=== PATIENT | female | born 1950 | race Caucasian/White ===

== ENCOUNTER 2023-12-13 21:54 | Inpatient (IN) | payer MEDICARE, BC, SELFPAY ==
--- NOTE | ~2023-12-13 | CT_ITS ---
EXAMINATION: CT SOFT TISSUE NECK WITH CONTRAST CLINICAL INFORMATION: Purulent nasal discharge. Status post jaw bone graft. COMPARISON: None available. TECHNIQUE: Following the intravenous administration of 60 mL of Omnipaque 350 intravenous contrast, helical imaging was performed in the axial plane with generation of coronal and sagittal reformatted images. This CT examination was performed using dose optimization techniques as appropriate, variously including the following: *Automated exposure control *Adjustment of mA and/or kV according to patient size (this includes techniques or standardized protocols for targeted exams where dose is matched to indication/reason for exam; i.e. extremities or head) *Use of iterative reconstruction technique DLP: 447 mGy-cm FINDINGS: The uvula and adenoids are prominent narrowing the nasopharyngeal airway. The oropharynx and hypopharynx are unremarkable. The epiglottis is unremarkable. The retropharyngeal soft tissues are unremarkable. The parotid glands, submandibular glands are unremarkable. There are subcentimeter bilateral thyroid hypodensities. There are prominent nonspecific lymph nodes throughout the neck measuring up to 2.3 cm. There is significant left maxillary sinus opacity. There is a small left ethmoid sinus opacity. The remaining maxillofacial sinuses are essentially clear. The mastoids are clear. The visualized upper lung beckman are clear. The visualized intracranial structures are unremarkable. The orbital structures are within normal limits. CT/CT soft tissue neck w IV con IMPRESSION: 1. Prominent uvula and adenoids narrowing the nasopharyngeal airway. 2. Prominent nonspecific lymph nodes throughout the neck measuring up to 2.3 cm. 3. Left maxillary and ethmoid sinus disease.
--- NOTE | ~2023-12-13 | XR_ITS ---
EXAMINATION: XR CHEST CLINICAL INFORMATION: High fever. COMPARISON: None available. TECHNIQUE: Frontal view of the chest was obtained. FINDINGS: No significant abnormality is noted involving the heart, lungs, mediastinum, bony thorax or soft tissues. XR/XR chest 1V IMPRESSION: Unremarkable examination.
[2023-12-13 22:06] VITALS: BP 142/64; PULSE 96; RESP 20; TEMP 38.4; O2SAT 97; BMI 28.3
[2023-12-13] MEDS: Ibuprofen 600 MG TABLET PO (22:19)
--- NOTE | 2023-12-13 22:31 | MHC.EDTECH ---
Patient brought into triage area,labs,sars/flu/rsv obtained and sent to lab.
[2023-12-13 22:35] LABS: Basophils Percent Auto 0.3 % (0-2); Eosinophils Absolute Auto 0.1 X10*3/uL (0.0-0.4); Eosinophils Percent Auto 1.4 % (0-4); Hematocrit 33.3 % (37.0-47.0); Hemoglobin 11.3 g/dl (12.0-16.0); Imm Gran Abs Auto 0.03 X10*3/uL (0.00-0.03); Imm Gran Pct Auto 0.5 % (0.0-0.4); Lymphocytes Absolute Auto 0.3 X10*3/uL (1.2-4.9); Lymphocytes Percent Auto 5.6 % (20-40); MANUAL DIFF FLAG NO; Mean Corpuscular HGB Conc 33.9 g/dl (31.0-35.0); Mean Corpuscular Hemoglobin 30.5 pg (27.0-33.0); Mean Corpuscular Volume 89.8 fL (80.0-98.0); Mean Platelet Volume 9.8 fL (9.4-12.3); Monocytes Absolute Auto 0.5 X10*3/uL (0.1-1.2); Monocytes Percent Auto 8.2 % (2-11); Neutrophils Absolute Auto 4.8 x10*3/uL (2.0-8.3); Platelet Count 194 X10*3/uL (160-400); Red Blood Count 3.71 X10*6/uL (4.20-5.50); Red Cell Distribution Width 11.8 % (11.0-16.0); White Blood Count 5.8 X10*3/uL (4.8-10.8)
[2023-12-13 22:50] LABS: Alanine Aminotransferase 12 U/L (0-31); Albumin Level 3.8 g/dL (3.5-5.0); Alkaline Phosphatase 87 U/L (39-117); Anion Gap 12 (12-20); Aspartate Amino Transferase 13 U/L (5-31); Bilirubin Total 0.4 mg/dL (0.0-1.0); Blood Urea Nitrogen 11 mg/dL (9-16); Calcium 8.7 mg/dL (8.4-10.2); Carbon Dioxide 22 mmol/L (22-29); Chloride 101 mmol/L (96-108); Creatinine Clr Calc Pharmacy 59.4; Estimated Glomerular Filt Rate > 60; Glucose Random 158 mg/dL (60-115); Potassium 4.1 mmol/L (3.3-5.1); Sodium 131 mmol/L (135-145); Total Protein 6.9 g/dL (6.5-8.0)
[2023-12-13 23:12] LABS: Influenza A PCR NEGATIVE (Negative); Influenza B PCR NEGATIVE (Negative); Resp Syncy Virus RNA Qual PCR NEGATIVE (Negative); SARS COV2 PCR INHOUSE NEGATIVE (Negative)
[2023-12-14] VITALS (7 sets, daily range): BP systolic 93–130; BP diastolic 40–64; PULSE 70–81; RESP 16–18; TEMP 36.3–36.9; O2SAT 93–98; BMI 28.3; BMI 36.8
--- NOTE | 2023-12-14 00:59 | MHC.EDTECH ---
Patient brought into triage,1st set of blood cultures and lactic drawn and sent to lab. Urine sample collected and sent to lab.
[2023-12-14 01:07] LABS: Appearance Urine Cloudy; Color Urine Dark Yellow; Glucose Urine UA Negative (Negative); Leukocyte Esterase Urine Small (1+) (Negative); Nitrite Urine Negative (Negative); Specific Gravity - Urine >= 1.030 (1.005-1.025); UMIC TRIGGER UACC YES; Urine Blood Negative (Negative); Urine Ketones Trace mg/dL (Negative); Urine Protein 30 (1+) mg/dL (Neg-Trace)
[2023-12-14 01:16] LABS: Bacteria Urine None Seen (None Seen); Hyaline Casts Urine >20 /LPF (0-2); RBC Urine 0-2 /HPF (0-2); UACC Culture Trigger YES; WBC Urine >50 /HPF (0-5)
[2023-12-14 01:27] LABS: Lactic Acid 1.2 mmol/L (0.5-2.0)
[2023-12-14] MEDS: iohexoL 350 MG/ML 100 ML INFUS..BTL 60 ML IV (02:25)
[2023-12-14] MEDS: Ketorolac Tromethamine 30 MG/ML VIAL IVPUSH (02:36)
[2023-12-14] MEDS: levoFLOXacin/D5W 500 MG/100 ML PIGGYBACK 100 MG IV (02:36)
[2023-12-14] MEDS: 0.9 % Sodium Chloride 1,000 ML 999 ML IVCONT (02:37)
--- NOTE | 2023-12-14 02:55 | ED.GENADULT ---
HPI - General Adult General Chief complaint: Fever Stated complaint: sob, nausea, fever, vomiting Time Seen by Provider: 12/14/23 01:44 Source: patient and family Mode of arrival: ambulatory Limitations: no limitations History of Present Illness HPI narrative: Patient comes to the emergency room accompanied by her son. Approximately 3 weeks ago, patient had for molar extractions in bilateral upper and lower parts of the jaw. Also, for bone grafts were placed. Since then, patient has been spiking intermittent fevers. Patient was treated with sulfamethoxazole, finished treatment but patient is still spiking fever. Patient states that she has sinus pressure in her forehead and in the facial cheeks, patient states when she blows her nose, she expresses foul-smelling mucus. Patient also reporting nausea and vomiting and posterior headache. Patient denies neck pain or neck stiffness. Patient denies chest pain or shortness of breath, no UTI symptoms. Related Data Allergies Allergy/AdvReac Type Severity Reaction Status Date / Time morphine [MORPHINE] Allergy Unknown UNKNOWN Verified 12/13/23 22:14 Penicillins [PENICILLINS] Allergy Unknown UNKNOWN Verified 12/13/23 22:14 Review of Systems Review of Systems: Constitutional : No Weight loss, complaining of fever and chills No Night Sweats, No Fatigue, No Malaise ENT/Mouth : No Hearing loss, No Ear Pain, complaining of nasal congestion and sinus pain with foul discharge pronounced. No Hoarseness, No sore throat, No Rhinorrhea, No Swallowing Difficulty , recovering from bone graft in the jaw mandible bilaterally Eyes: No Eye Pain, No Swelling, No Redness, No Foreign Body, No Discharge, No Vision Changes Cardiovascular : No Chest Pain, No SOB, No Dyspnea on Exertion, No Orthopnea, No Edema, No Palpitations Respiratory : No Cough, No Sputum, No Wheezing, No Smoke Exposure, No Dyspnea Gastrointestinal : No Nausea, No Vomiting, No Diarrhea, No Constipation, No abdominal Pain, No Hematochezia, No Melena Genitourinary : no irregular bleeding, No Dysuria, No Urinary Frequency, No Hematuria, No Urinary Incontinence, No Urgency, No Flank Pain, No Urinary Flow Changes, No Hesitancy Musculoskeletal : No joint pain, No Myalgias, No Joint Swelling Skin : No Skin Lesions, No rash Neuro : No Weakness, No Numbness, No Paresthesias, No Loss of Consciousness, No Dizziness, complaining of posterior Headache without rigidity Psych : No Anxiety/Panic, No Depression, No SI/HI/AH/VH, No Social Issues, Heme/Lymph: No Bruising, No Bleeding,No Lymphadenopathy Endocrine : No Polyuria, No Polydipsia, No Temperature Intolerance [facility] Social History Social History Patient Tobacco Use Status: Never used Tobacco Advance Directives: No Advance Directives Information Provided: Yes Nutrition Risks: No Nutritional Risk Physical Exam ED Vital Signs: Vital Signs - 24 hr 12/13/23 22:06 12/14/23 00:54 12/14/23 03:55 Temperature 101.2 F H 98.5 F 97.8 F Pulse Rate 96 71 Respiratory Rate 20 16 Blood Pressure 142/64 H 104/47 L Pulse Oximetry 97 98 Oxygen Delivery Method Room Air Room Air BMI result Body Mass Index 28.3 Const Other: Appearance: Alert. Oriented X3. No acute distress. Well-appearing Eyes: Pupils equal, round and reactive to light. ENT: Pharynx normal. Bone graft seem to be healing well, no obvious abscesses or drainage Neck: Normal inspection. Neck supple. No lymph nodes noted. No crepitus, normal range of motion without rigidity CVS: Normal heart rate and rhythm. Pulses normal. Normal S1 and S2 Respiratory: No respiratory distress. Breath sounds normal. No Wheezing. No rales Abdomen: Soft and nontender. No rigidity. No distention. Skin: Skin warm and dry. Normal skin color. Normal skin turgor. Extremities: No lower extremity edema. No Lacerations. No Rash Neuro: Oriented X 3. No motor deficit. No sensory deficit. Moving all extremities. No slurred speech. CN 2 through 12 grossly intact Psych: calm, cooperative, normal affect Medications Administered Generic Name Dose Route Start Last Admin Trade Name Freq PRN Reason Stop Dose Admin Lactated Ringer's 1,000 mls @ 125 mls/hr 12/14/23 06:15 12/14/23 06:08 Lr IVCONT 12/14/23 18:14 125 mls/hr .Q8H PIETRO Administration Discontinued Medications Generic Name Dose Route Start Last Admin Trade Name Freq PRN Reason Stop Dose Admin Dexamethasone Sodium Phosphate 6 mg 12/14/23 05:28 12/14/23 05:56 Dexamethasone Sod Phosphate 4 Mg/Ml Vial IVPUSH 12/14/23 05:29 6 mg ONCE ONE Administration Diphenhydramine HCl 25 mg 12/14/23 05:32 12/14/23 05:59 Diphenhydramine Hcl 50 Mg/Ml Vial IVPUSH 12/14/23 05:33 25 mg ONCE ONE Administration Sodium Chloride 1,000 mls @ 999 mls/hr 12/14/23 01:57 12/14/23 03:38 Ns IVCONT 12/14/23 02:57 Infused .Q1H1M ONE Infusion Levofloxacin 500 mg in 100 mls @ 100 mls/hr 12/14/23 02:06 12/14/23 03:38 Levaquin IV 12/14/23 03:05 Infused ONCE ONE Infusion Ibuprofen 600 mg 12/13/23 22:17 12/13/23 22:19 Ibuprofen 600 Mg Tablet PO 12/13/23 22:18 600 mg ONCE ONE Administration Iohexol 60 ml 12/14/23 02:24 12/14/23 02:25 Iohexol 350 Mg/Ml 100 Ml Infus..Btl IV 12/14/23 02:25 60 ml ONCE ONE Administration Ketorolac Tromethamine 30 mg 12/14/23 01:57 12/14/23 02:36 Ketorolac Tromethamine 30 Mg/Ml Vial IVPUSH 12/14/23 01:58 30 mg ONCE ONE Administration Morphine Sulfate 2 mg 12/14/23 05:32 12/14/23 06:00 Morphine Sulfate 2 Mg/Ml Cartridge IVPUSH 12/14/23 05:33 2 mg ONCE ONE Administration Protocol Medical Decision Making Medical Decision Making MDM Narrative: -my interpretation of labs: Normal white blood cell count, sodium slightly decreased at 131, lactic acid normal, LFTs normal. Urine positive for UTI but patient is asymptomatic. Patient tested negative for influenza COVID and RSV. -earlier today patient had a fever, patient was given ibuprofen, no longer febrile. -patient is being treated empirically with levofloxacin, to cover both, sinus infection and UTI. -given patient's history of foul discharg, sinus pain and recent history of mandible/maximally grafts, we will order a CT scan of the soft tissue of the neck which will cover sinuses to neck to rule out any abscesses -my interpretation of chest x-ray: No infiltrate -soft tissue of the head and neck including sinuses, interpretation, opacification of the left maxillary sinus. Airways patent from the mouth all the way down to the lungs. Airway compromise not suspected. -I discussed the above-mentioned with the patient and her son, the patient states that she feels weak -also, I discussed the above-mentioned with our hospitalist Dr. Gordon, patient being admitted for sinusitis that failed outpatient treatment and UTI, weakness Differential Diagnosis Differential Diagnoses: The differential diagnosis associated with the presentation includes (Sinusitis, mandible/maxillary abscess/infection, UTI, viral illness) Admission/Observation Consideration of admission/observation: Escalation of care including admission/observation considered (Given patient's symptoms and history of p.o. antibiotics without any clinical improvement, admission has been considered) Consult Healthcare Provider Management of the patient was discussed with: Hospitalist Lab Data MDM Lab Attestation statement: I reviewed the patient's lab results. 12/13/23 22:27 12/13/23 22:27 Labs: Lab Results 12/13/23 12/14/23 Range/Units 22:27 00:57 WBC 5.8 (4.8-10.8) X10*3/uL RBC 3.71 L (4.20-5.50) X10*6/uL Hgb 11.3 L (12.0-16.0) g/dl Hct 33.3 L (37.0-47.0) % MCV 89.8 (80.0-98.0) fL MCH 30.5 (27.0-33.0) pg MCHC 33.9 (31.0-35.0) g/dl RDW 11.8 (11.0-16.0) % Plt Count 194 (160-400) X10*3/uL MPV 9.8 (9.4-12.3) fL Immature Gran % (Auto) 0.5 H (0.0-0.4) % Neut % (Auto) 84.0 H (45-73) % Lymph % (Auto) 5.6 L (20-40) % [place] % (Auto) 8.2 (2-11) % Eos % (Auto) 1.4 (0-4) % Baso % (Auto) 0.3 (0-2) % Lymph # (Auto) 0.3 L (1.2-4.9) X10*3/uL [place] # (Auto) 0.5 (0.1-1.2) X10*3/uL Eos # (Auto) 0.1 (0.0-0.4) X10*3/uL Baso # (Auto) 0.0 (0.0-0.2) X10*3/uL Abs Immat Gran (auto) 0.03 (0.00-0.03) X10*3/uL Absolute Neuts (auto) 4.8 (2.0-8.3) x10*3/uL Absolute Nucleated RBC 0.000 (0.0-0.012) X10*3/uL Nucleated RBC % (auto) 0.0 (0.0-0.2) /100WBC Sodium 131 L (135-145) mmol/L Potassium 4.1 (3.3-5.1) mmol/L Chloride 101 (96-108) mmol/L Carbon Dioxide 22 (22-29) mmol/L Anion Gap 12 (12-20) BUN 11 (9-16) mg/dL Creatinine 0.86 (0.5-1.4) mg/dL Estim Creat Clear Calc 59.4 Estimated GFR > 60 Random Glucose 158 H (60-115) mg/dL Lactic Acid 1.2 (0.5-2.0) mmol/L Calcium 8.7 (8.4-10.2) mg/dL Total Bilirubin 0.4 (0.0-1.0) mg/dL AST 13 (5-31) U/L ALT 12 (0-31) U/L Alkaline Phosphatase 87 (39-117) U/L C-Reactive Protein 10.49 H (< or = 0.50) mg/dL Total Protein 6.9 (6.5-8.0) g/dL Albumin 3.8 (3.5-5.0) g/dL Urine Color Dark Yellow Urine Appearance Cloudy Urine pH 5.0 (5.0-9.0) Ur Specific [place] >= 1.030 H (1.005-1.025) Urine Protein 30 (1+) H (Neg-Trace) mg/dL Urine Glucose (UA) Negative (Negative) mg/dL Urine Ketones Trace (Negative) mg/dL Urine Blood Negative (Negative) Urine Nitrite Negative (Negative) Ur Leukocyte Esterase Small (1+) H (Negative) Urine RBC 0-2 (0-2) /HPF Urine WBC >50 H (0-5) /HPF Ur Squamous Epith Cells 3-5 (0-2) /HPF Urine Bacteria None Seen (None Seen) Hyaline Casts >20 (0-2) /LPF Influenza Type A (PCR) NEGATIVE (Negative) Influenza Type B (PCR) NEGATIVE (Negative) RSV RNA Qual (PCR) NEGATIVE (Negative) SARS-CoV-2 RNA (RT-PCR) NEGATIVE (Negative) Independent Interpretation I performed an independent interpretation of an: Plain X-Ray and CT Scan Radiology Impression Discussion of test interpretation with radiology: I have reviewed the radiologist's reading. Radiologist Impression: FINDINGS: No significant abnormality is noted involving the heart, lungs, mediastinum, bony thorax or soft tissues. XR/XR chest 1V IMPRESSION: Unremarkable examination The uvula and adenoids are prominent narrowing the nasopharyngeal airway. The oropharynx and hypopharynx are unremarkable. The epiglottis is unremarkable. The retropharyngeal soft tissues are unremarkable. The parotid glands, submandibular glands are unremarkable. There are subcentimeter bilateral thyroid hypodensities. There are prominent nonspecific lymph nodes throughout the neck measuring up to 2.3 cm. There is significant left maxillary sinus opacity. There is a small left ethmoid sinus opacity. The remaining maxillofacial sinuses are essentially clear. The mastoids are clear. The visualized upper lung beckman are clear. The visualized intracranial structures are unremarkable. The orbital structures are within normal limits. CT/CT soft tissue neck w IV con IMPRESSION: 1. Prominent uvula and adenoids narrowing the nasopharyngeal airway. 2. Prominent nonspecific lymph nodes throughout the neck measuring up to 2.3 cm. 3. Left maxillary and ethmoid sinus disease. Independent Historian Clinical information obtained from an independent historian. History obtained from or confirmed by: Other (Son) Critical Care Time Critical Care Time Critical Care Time: Yes Total Critical Care Time: 75 Attestation: I have personally provided critical care time. Time includes review of lab data, radiology results, discussion with consultants, and monitoring for potential decompensation. Intervention performed as documented. Discharge Plan Discharge Print Language: Turkmen
[2023-12-14] MEDS: dexAMETHasone sod phosphate 4 MG/ML VIAL 6 MG IVPUSH (05:56)
[2023-12-14] MEDS: diphenhydrAMINE HCL 50 MG/ML VIAL 25 MG IVPUSH (05:59)
[2023-12-14] MEDS: Morphine Sulfate 2 MG/ML CARTRIDGE IVPUSH (06:00)
--- NOTE | 2023-12-14 06:04 | PM.IMHP ---
History of Present Illness Date of Service: 12/14/23 Attending physician on admission: Saeed Santos Chief Complaint: Fever Geronimo Hall is a delightful 73 years old woman with no significant past medical history presents to the emergency department accompanied by her son complaining of fever (max 103) over the last several days associated with frontal headache that radiates to the posterior aspect of her neck, nausea and vomiting. She also complained of tenderness in the left upper cheek area. There is no acute visual disturbances Denied sore throat, cough, shortness on breath or chest pain. She denied any acute gastrointestinal or genitourinary symptoms. On November 21 of this year she underwent multiple dental extraction (5 teeth, both side, upper and lower) in addition to bone grafts. He was prescribed to take a course of sulfamethoxazole for 7 days (she has completed 5 days so far). Also, she has been taking Zofran as needed. Patient denied any associated visual disturbances. Son was at bedside and contributes to HPI. Confusion has not been reported. There is no history of tobacco smoking, alcohol abuse or illicit drug use. In the ED she was found to have fever, 101.2. Heart rate is 96. There is no hypotension and O2 sats on room air are normal. Blood workup showed no leukocytosis with neutrophilia. There is no lactic acidosis. Sodium level is slightly low. There are no other significant electrolyte imbalances. LFTs are normal. Renal function is adequate. Urinalysis showed elevated SG, mild proteinuria, mild leukocyte esterase, WBC > 50 and trace ketones. Neck soft tissue CT scan showed prominent uvula and adenoids narrowing the nasopharyngeal area no evidence of mastoiditis, prominent nonspecific lymph nodes through the neck measuring up to 2.3 cm and left maxillary and ethmoid sinus disease. ED tx: NS 1 L bolus, Toradol 30 mg IV, Levaquin 500 mg IV, dexamethasone 6 mg IV, morphine 2 mg IV, Benadryl 25 mg IV and ibuprofen 600 mg PO. Review of Systems Review of Systems: All 12 systems were reviewed and normal except as noted in HPI. [facility] Medical History (Updated 12/14/23 @ 06:58 by Saeed Santos MD) Depression Surgical History (Updated 12/14/23 @ 06:54 by Saeed Santos MD) History of dental surgery Social History Patient Tobacco Use Status: Never used Tobacco Advance Directives: No Advance Directives Information Provided: Yes Nutrition Risks: No Nutritional Risk Meds Allergies Allergy/AdvReac Type Severity Reaction Status Date / Time morphine [MORPHINE] Allergy Unknown UNKNOWN Verified 12/13/23 22:14 Penicillins [PENICILLINS] Allergy Unknown UNKNOWN Verified 12/13/23 22:14 Active Medications: Current Medications Acetaminophen (Acetaminophen 325 Mg Tablet) 975 mg PO Q6H PRN PRN Reason: Fever Levofloxacin (Levaquin) 750 mg in 150 mls @ 100 mls/hr IV Q24H [facility] Lactated Ringer's (Lr) 1,000 mls @ 125 mls/hr IVCONT .Q8H [facility] Stop: 12/14/23 18:14 Ibuprofen (Ibuprofen 200 Mg Tablet) 200 mg PO TID [facility] Stop: 12/19/23 08:59 Sodium Chloride (0.9 % Sodium Chloride Flush 3 Ml Syringe) 3 ml IVFLUSH QSHIFT [facility] Physical Exam Vital Signs and Narrative: Vital Signs: Last Vital Signs Temp 97.8 F 12/14/23 03:55 Pulse 71 12/14/23 03:55 Resp 16 12/14/23 03:55 BP 104/47 L 12/14/23 03:55 Pulse Ox 98 12/14/23 03:55 O2 Del Method Room Air 12/14/23 03:55 BMI result Body Mass Index 28.3 Constitutional - Awake and Alert, No apparent distress. Febrile. Pleasant. Cooperative HEENT - Pupils equally round. Left maxillar sign tenderness. No frontal sinus tenderness. Moist oral mucosa. Minimal swelling of the oropharynx without erythema. Neck: Supple, (+) LAD. Heart - S1S2, RRR. Lungs - Normal lung expansion, Normal respiratory effort, No respiratory distress, CTA bilaterally Abdomen - Non tenderness Skin - Warm. No pallor. No jaundice. Neurological - Alert & oriented x3. No facial droop. No focal weakness grossly noted. Normal speech. Psychological - Appropriate affect Results Labs 12/13/23 22:27 12/13/23 22:27 Labs: Laboratory Results - last 24 hr 12/13/23 12/14/23 22:27 00:57 MCV 89.8 MCH 30.5 MCHC 33.9 RDW 11.8 Plt Count 194 MPV 9.8 Immature Gran % (Auto) 0.5 H Neut % (Auto) 84.0 H Lymph % (Auto) 5.6 L [place] % (Auto) 8.2 Eos % (Auto) 1.4 Baso % (Auto) 0.3 Lymph # (Auto) 0.3 L [place] # (Auto) 0.5 Eos # (Auto) 0.1 Baso # (Auto) 0.0 Abs Immat Gran (auto) 0.03 Absolute Neuts (auto) 4.8 Absolute Nucleated RBC 0.000 Nucleated RBC % (auto) 0.0 Anion Gap 12 Estim Creat Clear Calc 59.4 Estimated GFR > 60 Random Glucose 158 H Lactic Acid 1.2 Calcium 8.7 Total Bilirubin 0.4 AST 13 ALT 12 Alkaline Phosphatase 87 Total Protein 6.9 Albumin 3.8 Urine Color Dark Yellow Urine Appearance Cloudy Urine pH 5.0 Ur Specific [place] >= 1.030 H Urine Protein 30 (1+) H Urine Glucose (UA) Negative Urine Ketones Trace Urine Blood Negative Urine Nitrite Negative Ur Leukocyte Esterase Small (1+) H Urine RBC 0-2 Urine WBC >50 H Ur Squamous Epith Cells 3-5 Urine Bacteria None Seen Hyaline Casts >20 Influenza Type A (PCR) NEGATIVE Influenza Type B (PCR) NEGATIVE RSV RNA Qual (PCR) NEGATIVE SARS-CoV-2 RNA (RT-PCR) NEGATIVE Imaging Radiologist's Impressions: Impressions Chest X-Ray 12/14/23 02:00 IMPRESSION: Unremarkable examination. Soft Tissue Neck CT 12/14/23 02:33 IMPRESSION: 1. Prominent uvula and adenoids narrowing the nasopharyngeal airway. 2. Prominent nonspecific lymph nodes throughout the neck measuring up to 2.3 cm. 3. Left maxillary and ethmoid sinus disease. Assessment and Plan (1) History of dental surgery: Status: Acute (2) Maxillary sinusitis, acute: Qualifiers: Recurrence: not specified as recurrent Qualified Code(s): J01.00 - Acute maxillary sinusitis, unspecified Status: Acute (3) Ethmoid sinusitis: Qualifiers: Chronicity: acute Recurrence: not specified as recurrent Qualified Code(s): J01.20 - Acute ethmoidal sinusitis, unspecified Status: Acute (4) SIRS (systemic inflammatory response syndrome): Status: Acute Plan Geronimo Hall is a delightful 73 years old woman admitted with: Bacterial/purulent left maxillary and ethmoid sinusitis s/p recent dental extraction + bone graft. Failed course of oral antibiotic therapy as an outpatient. Severe sepsis criteria: Fever, HR > 90 bpm and MAP 58. Continue empiric IV antibiotic therapy with Levaquin 750 mg IV daily. IVFs 30 ml/kg. Ibuprofen 200 mg PO tid to help with pain and inflammation. Blood cultures obtained -will follow results. Presumed UTI, asymptomatic. Continue Levaquin. Urine culture obtained -will follow results. Hx of depression. Takes Zoloft as needed. DVT prophylaxis: SCDs, encourage early ambulation Code status: Full Patient will need hospitalization for at least 2 midnights for bacterial sinusitis of the left maxillary and ethmoid sinus + SIRS Quality Stroke Does the patient have a stroke diagnosis?: No VTE Prior VTE?: No VTE Risk Level:: Medical - low VTE Device Contraindication: N/A - Device Ordered VTE Drug Contraindication: Treatment Not Indicated
[2023-12-14] MEDS: Lactated Ringers 1,000 ML 125 ML IVCONT ×2 (06:08→15:24)
[2023-12-14 06:25] LABS: C Reactive Protein 10.49 mg/dL (< or = 0.50)
[2023-12-14 07:21] LABS: Lactic Acid 1.4 mmol/L (0.5-2.0)
[2023-12-14] MEDS: Lactated Ringers 1,000 ML 999 ML IV (08:21)
[2023-12-14] MEDS: Ibuprofen 200 MG TABLET PO ×2 (09:31→15:24)
[2023-12-14] MEDS: metroNIDAZOLE 500 MG TABLET PO ×2 (09:31→17:48)
--- NOTE | 2023-12-14 09:31 | PHA.MEDREC ---
Pharmacy Consult ? Medication Reconciliation Pharmacy has completed the medication reconciliation.
--- NOTE | 2023-12-14 15:33 | PM.EVENT ---
Event Note Date of Service: 12/14/23 Event Note: seen and examined this morning follow up for sinusitis. overall seems to be feeling better. remains afebrile will add flagyl for now for better anaerobic coverge due to recent dental work with extractions and bone grafts ID consult pending doubt UTI as UA appears to be a poor sample with squamous epithelial cells but will follow results of urine culture blood cultures pending remainder as per admission H&P Time Spent With Patient Time: Total time managing care of this patient today ____ minutes.
[2023-12-15] MEDS: Zolpidem Tartrate 5 MG TABLET PO (00:33)
[2023-12-15] MEDS: metroNIDAZOLE 500 MG TABLET PO (00:33)
[2023-12-15] MEDS: levoFLOXacin/D5W 750 MG/150 ML PIGGYBACK 100 MG IV (02:30)
[2023-12-15 03:38] VITALS: BP 140/64; PULSE 70; RESP 18; TEMP 36.9; O2SAT 96
--- NOTE | 2023-12-15 05:30 | PC.NURSE ---
Patient reported at 0520 a rash to face, chest, back, thighs, feet, along with itching. No SOB or facial/throat swelling. She received Levaquin at 0230. ?allergy. notified via [employer].
[2023-12-15] MEDS: diphenhydrAMINE HCL 50 MG/ML VIAL IVPUSH ×3 (05:50→20:04)
[2023-12-15 07:18] LABS: Basophils Percent Auto 0.3 % (0-2); Eosinophils Percent Auto 0.9 % (0-4); Hematocrit 29.9 % (37.0-47.0); Hemoglobin 10.1 g/dl (12.0-16.0); Imm Gran Abs Auto 0.01 X10*3/uL (0.00-0.03); Imm Gran Pct Auto 0.3 % (0.0-0.4); Lymphocytes Absolute Auto 1.1 X10*3/uL (1.2-4.9); MANUAL DIFF FLAG SCAN; Mean Corpuscular HGB Conc 33.8 g/dl (31.0-35.0); Mean Corpuscular Hemoglobin 30.1 pg (27.0-33.0); Mean Corpuscular Volume 89.3 fL (80.0-98.0); Mean Platelet Volume 11.4 fL (9.4-12.3); Monocytes Absolute Auto 0.3 X10*3/uL (0.1-1.2); Monocytes Percent Auto 8.9 % (2-11); Neutrophils Absolute Auto 2.1 x10*3/uL (2.0-8.3); Neutrophils Percent Auto 59.3 % (45-73); Platelet Count 177 X10*3/uL (160-400); Red Blood Count 3.35 X10*6/uL (4.20-5.50); SCAN SMEAR FLAG 1; White Blood Count 3.5 X10*3/uL (4.8-10.8)
[2023-12-15 07:32] VITALS: BP 129/60; PULSE 69; RESP 14; TEMP 36.8; O2SAT 96
[2023-12-15 07:45] LABS: Lymphocytes Percent Auto 30.3 % (20-40); SLIDE REVIEW VERIFIED
[2023-12-15] MEDS: 0.9 % Sodium Chloride Flush 3 ML SYRINGE IVFLUSH ×3 (07:57→23:39)
[2023-12-15 11:01] LABS: Anion Gap 12 (12-20); Blood Urea Nitrogen 11 mg/dL (9-16); Calcium 8.7 mg/dL (8.4-10.2); Carbon Dioxide 25 mmol/L (22-29); Chloride 108 mmol/L (96-108); Estimated Glomerular Filt Rate > 60; Glucose Random 109 mg/dL (60-115); Potassium 4.5 mmol/L (3.3-5.1); Sodium 140 mmol/L (135-145)
--- NOTE | 2023-12-15 11:02 | P.PNIM_ITS ---
Subjective Subjective Date of Service: 12/15/23 Interval History: seen and examined this morning follow up for sinusitis, fever developed rash overnight, received benadryl other then rash, doing well. no fever, facial pressure improving Review of Systems Review of Systems: Yes all other systems are reviewed and are negative Constitutional Constitutional: Denies chills and Denies fever(s) Cardiovascular Cardiovascular: Denies chest pain, Denies palpitations and Denies dyspnea Respiratory Respiratory: Denies cough and Denies dyspnea Endocrine Endocrine: Denies palpitations Physical Exam 2 Vital Signs: Vital Signs: Last Vital Signs Temp 98.3 F 12/15/23 07:32 Pulse 69 12/15/23 07:32 Resp 14 12/15/23 07:32 BP 129/60 12/15/23 07:32 Pulse Ox 96 12/15/23 07:32 O2 Del Method Room Air 12/15/23 07:32 BMI result Body Mass Index 28.3 Const: General: cooperative, comfortable, no acute distress, alert and awake Nutritional Appearance: average body habitus Orientation/consciousness: p atient oriented x3 Resp: Effort & Inspection: normal respiratory effort, able to speak in complete sentences, no respiratory distress and no use of accessory muscles Cardio: Rate: regular rate GI: Inspection: No distended Palpation (GI): Soft to palpation and nontender Skin: Other: back abdomen Neuro: General: patient oriented x3, moves all extremities and CN's II-XI intact bilaterally Objective Data Active Medications Acetaminophen (Acetaminophen 325 Mg Tablet) 975 mg PO Q6H PRN PRN Reason: Fever Diphenhydramine HCl (Diphenhydramine Hcl 50 Mg/Ml Vial) 50 mg IVPUSH Q4H PRN PRN Reason: Rash Last Admin: 12/15/23 05:50 Dose: 50 mg Documented By: DORI Ibuprofen (Ibuprofen 200 Mg Tablet) 200 mg PO TID PRN PRN Reason: fever, mild pain Stop: 12/19/23 08:59 Sodium Chloride (0.9 % Sodium Chloride Flush 3 Ml Syringe) 3 ml IVFLUSH QSHIFT [facility] Last Admin: 12/15/23 07:57 Dose: 3 ml Documented By: DYANA Zinc Acetate/Diphenhydramine (Diphenhydramine Hcl 2 % Cream 28 Gm Tube) 1 appl TOPICAL BID PRN; Protocol PRN Reason: Itching Zolpidem Tartrate (Zolpidem Tartrate 5 Mg Tablet) 5 mg PO BEDTIME PRN PRN Reason: Insomnia Last Admin: 12/15/23 00:33 Dose: 5 mg Documented By: DORI Labs 12/15/23 06:00 12/15/23 06:00 Labs: Laboratory Results - last 24 hr 12/15/23 06:00 MCV 89.3 MCH 30.1 MCHC 33.8 RDW 12.0 Plt Count 177 MPV 11.4 Immature Gran % (Auto) 0.3 Neut % (Auto) 59.3 Lymph % (Auto) 30.3 Lares % (Auto) 8.9 Eos % (Auto) 0.9 Baso % (Auto) 0.3 Lymph # (Auto) 1.1 L Lares # (Auto) 0.3 Eos # (Auto) 0.0 Baso # (Auto) 0.0 Abs Immat Gran (auto) 0.01 Absolute Neuts (auto) 2.1 Absolute Nucleated RBC 0.000 Nucleated RBC % (auto) 0.0 Smear Tech's Comments VERIFIED Anion Gap 12 Estim Creat Clear Calc 71.0 Estimated GFR > 60 Random Glucose 109 Calcium 8.7 Microbiology Microbiology Results: Microbiology 12/14/23 02:12 Urine Culture - Final Urine clean catch - Urine mathew top No growth. 12/14/23 02:12 Blood Culture - Preliminary Blood - Venous No growth after 24 hours. 12/14/23 00:57 Blood Culture - Preliminary Blood - Venous No growth after 24 hours. Assessment and Plan (1) Ethmoid sinusitis: Status: Acute (2) Maxillary sinusitis, acute: Status: Acute Plan This is a 73 year old female with recent dental procedure including multiple tooth extractions and bone grafts for implants who presented to the emergency department with fever headache, facial pressure, purulent nasal discharge and several days of fever despite being treated outpatient with Bactrim Bacterial/purulent left maxillary and ethmoid sinusitis s/p recent dental extraction + bone graft. Failed course of oral Bactrim therapy as an outpatient. Met Severe sepsis criteria on admission due to fever, HR 96. Was treated with IVF and levaquin initially blood cultures negative seen by ID - thought many of her symptoms could be explained by Bactrim intolerance Levquin and Flagyl stopped per ID rec due to rash and overnight monitoring plan for discharge with zpack as patient has tolerated before Rash overnight 4/6 pt developed rash on face, trunk, feet c/w Bactrim intolerance. d/w ID, recommend to stop all abx for now UTI ruled out pt asymptomatic, urine culture negative Hx of depression. Takes Zoloft as needed. DVT prophylaxis: SCDs, encourage early ambulation Code status: Full Quality Stroke Does the patient have a stroke diagnosis?: No VTE Prior VTE?: No VTE Risk Level:: Medical - low VTE Device Contraindication: N/A - Device Ordered VTE Drug Contraindication: Treatment Not Indicated
--- NOTE | 2023-12-15 13:10 | MHC.CM.PN ---
pt lives with will not need servies when dcd has a ride
[2023-12-15] MEDS: diphenhydrAMINE HCl 2 % Cream 28 GM TUBE 1 APPL TOPICAL (13:56)
[2023-12-15 15:19] VITALS: BP 123/58; PULSE 75; RESP 16; TEMP 36.3; O2SAT 96
[2023-12-15 19:50] VITALS: BP 121/62; PULSE 71; RESP 20; TEMP 36.6; O2SAT 96
--- NOTE | 2023-12-15 20:01 | PC.NURSE ---
Patient with rash all over body,complaints of itchyness ,Benadryl IV administered as ordered
--- NOTE | 2023-12-15 21:58 | P.CNID_ITS ---
History of Present Illness Data of Consult Service Date: 12/14/23 Requesting physician: Magalie Rene Primary Care Provider: Jens Solano MD [facility] Reason for consult: fever unknown origin She presents with fever last two days. She had temperature 101.2 on admission. She had five teeth removed upper and lower jaw and bone grafts. She was started on Bactrim after concern for maxillary sinusitis after. She has nausea and vomiting and no signs UTI. Review of Systems 2 Gastrointestinal: Gastrointestinal: Reports vomiting PMFSH Past Medical History Medical History (Updated 12/15/23 @ 22:01 by Judith Allen MD) Fever of unknown origin Depression Family History Family history: reviewed and not pertinent Surgical History Surgical History History of dental surgery Social History Social History Household Members: Significant Other Housing: House Do you presently have visiting nurse or other home services: No Patient Tobacco Use Status: Never used Tobacco Second Hand Smoke Exposure: No service: No Meds Allergies Allergy/AdvReac Type Severity Reaction Status Date / Time sulfamethoxazole Allergy Intermediate Rash Verified 12/15/23 12:18 [From Bactrim] trimethoprim [From Bactrim] Allergy Intermediate Rash Verified 12/15/23 12:18 morphine [MORPHINE] Allergy Unknown UNKNOWN Verified 12/13/23 22:14 Penicillins [PENICILLINS] Allergy Unknown UNKNOWN Verified 12/13/23 22:14 Active Medications: Current Medications Acetaminophen (Acetaminophen 325 Mg Tablet) 975 mg PO Q6H PRN PRN Reason: Fever Diphenhydramine HCl (Diphenhydramine Hcl 50 Mg/Ml Vial) 50 mg IVPUSH Q4H PRN PRN Reason: Rash Last Admin: 12/15/23 20:04 Dose: 50 mg Ibuprofen (Ibuprofen 200 Mg Tablet) 200 mg PO TID PRN PRN Reason: fever, mild pain Stop: 12/19/23 08:59 Sertraline HCl (Sertraline Hcl 50 Mg Tablet) 150 mg PO DAILY [facility] Sodium Chloride (0.9 % Sodium Chloride Flush 3 Ml Syringe) 3 ml IVFLUSH QSHIFT [facility] Last Admin: 12/15/23 15:24 Dose: 3 ml Zinc Acetate/Diphenhydramine (Diphenhydramine Hcl 2 % Cream 28 Gm Tube) 1 appl TOPICAL BID PRN; Protocol PRN Reason: Itching Last Admin: 12/15/23 13:56 Dose: 1 appl Zolpidem Tartrate (Zolpidem Tartrate 5 Mg Tablet) 5 mg PO BEDTIME PRN PRN Reason: Insomnia Last Admin: 12/15/23 00:33 Dose: 5 mg Home Medications ?Medication ?Instructions ?Recorded ?Confirmed ?Last Taken ?Type estradiol 10 mcg vaginal tablet 10 mcg vaginal TUTH@0900 12/14/23 12/14/23 12/12/23 History (Yuvafem) lubiprostone 8 mcg capsule 8 mcg PO BID PRN Constipation 12/14/23 12/14/23 Unknown History ondansetron HCl 4 mg tablet 4 mg PO Q8H PRN Nausea And Vomiting 12/14/23 12/14/23 Unknown History sertraline 100 mg tablet 150 mg PO DAILY 12/14/23 12/14/23 12/13/23 History sulfamethoxazole 800 1 tab PO BID 12/14/23 12/14/23 12/13/23 History mg-trimethoprim 160 mg tablet Physical Exam 2 Vital Signs: Vital Signs: Last Vital Signs Temp 97.8 F 12/15/23 19:50 Pulse 71 12/15/23 19:50 Resp 20 12/15/23 19:50 BP 121/62 12/15/23 19:50 Pulse Ox 96 12/15/23 19:50 O2 Del Method Room Air 12/15/23 19:50 BMI result Body Mass Index 28.3 Const: General: cooperative HEENT: Other: dental beds from extraction clean and healing nicely Head: Yes normal to inspection Face and sinus: Yes normal facial exam Mouth: Normal oral and palatal mucosa present Teeth and gingiva: dentition normal Eyes: General: appearance normal, both eyes and all related structures P upils: Equal, round and reactive pupils present Resp: Effort & Inspection: normal respiratory effort Cardio: Rate: regular rate Rhythm: regular rhythm GI: Palpation (GI): Soft to palpation and nontender : General: Yes no CVA tenderness Back/Spine/Pelvis: Back: no CVA tenderness Skin: General skin exam: no rashes or lesions noted Neuro: General: moves all extremities Cranial nerves: Yes Equal, round and reactive pupils present Extrem: General: Yes normal to inspection Psych: Appearance: grossly normal Results Labs 12/15/23 06:00 12/15/23 06:00 Labs: Short CBC 12/15/23 Range/Units 06:00 WBC 3.5 L (4.8-10.8) X10*3/uL Hgb 10.1 L (12.0-16.0) g/dl Hct 29.9 L (37.0-47.0) % Plt Count 177 (160-400) X10*3/uL BMP 12/15/23 06:00 Sodium 140 Potassium 4.5 Chloride 108 Carbon Dioxide 25 BUN 11 Creatinine 0.72 Calcium 8.7 Microbiology Microbiology Results: Microbiology 12/14/23 02:12 Urine clean catch - Urine mathew top Urine Culture - Final No growth. 12/14/23 02:12 Blood - Venous Blood Culture - Preliminary No growth after 24 hours. 12/14/23 00:57 Blood - Venous Blood Culture - Preliminary No growth after 24 hours. Assessment and Plan (1) Fever of unknown origin: Status: Acute Plan I think most likely cause of symptoms Bactrim adverse reaction to sulfa and normal dental healing. She may have minor sinusitis as well. Stop Sulfa drug and label intolerance. Would agree with Levaquin for seven days
[2023-12-16 03:39] VITALS: BP 126/62; PULSE 68; RESP 16; TEMP 36.1; O2SAT 94
[2023-12-16 07:21] VITALS: BP 107/58; PULSE 66; RESP 12; TEMP 36.6; O2SAT 98
[2023-12-16] MEDS: 0.9 % Sodium Chloride Flush 3 ML SYRINGE IVFLUSH ×3 (08:24→22:05)
[2023-12-16] MEDS: Sertraline HCL 50 MG TABLET 150 MG PO (08:25)
--- NOTE | 2023-12-16 10:08 | HO.PM.IMPN ---
Subjective Subjective Date of Service: 12/16/23 Interval History: seen and examined this morning follow up for sinusitis, fever drug rash worse today other then rash, doing well. no fever, facial pressure improving Review of Systems Review of Systems: Yes all other systems are reviewed and are negative Constitutional Constitutional: Denies chills and Denies fever(s) Cardiovascular Cardiovascular: Denies chest pain, Denies palpitations and Denies dyspnea Respiratory Respiratory: Denies cough and Denies dyspnea Endocrine Endocrine: Denies palpitations Physical Exam Vital Signs: Vital Signs: Last Vital Signs Temp 98 F 12/16/23 07:21 Pulse 66 12/16/23 07:21 Resp 12 12/16/23 07:21 BP 107/58 L 12/16/23 07:21 Pulse Ox 98 12/16/23 07:21 O2 Del Method Room Air 12/16/23 07:21 BMI result Body Mass Index 28.3 Appearing in no acute distress lung sounds are clear to auscultation heart regular rate rhythm, clear S1, S2 positive bowel sounds, abdomen is soft, nontender neuro patient is alert x3, no focal deficits macular rash to back, trunk, arms, thighs, feet Objective Data Active Medications Acetaminophen (Acetaminophen 325 Mg Tablet) 975 mg PO Q6H PRN PRN Reason: Fever Diphenhydramine HCl (Diphenhydramine Hcl 50 Mg/Ml Vial) 50 mg IVPUSH Q4H PRN PRN Reason: Rash Last Admin: 12/15/23 20:04 Dose: 50 mg Documented By: KEY Ibuprofen (Ibuprofen 200 Mg Tablet) 200 mg PO TID PRN PRN Reason: fever, mild pain Stop: 12/19/23 08:59 Prednisone (Prednisone 20 Mg Tablet) 40 mg PO DAILY [facility] Sertraline HCl (Sertraline Hcl 50 Mg Tablet) 150 mg PO DAILY [facility] Last Admin: 12/16/23 08:25 Dose: 150 mg Documented By: NURIA Sodium Chloride (0.9 % Sodium Chloride Flush 3 Ml Syringe) 3 ml IVFLUSH QSHIFT [facility] Last Admin: 12/16/23 08:24 Dose: 3 ml Documented By: NURIA Zinc Acetate/Diphenhydramine (Diphenhydramine Hcl 2 % Cream 28 Gm Tube) 1 appl TOPICAL BID PRN; Protocol PRN Reason: Itching Last Admin: 12/15/23 13:56 Dose: 1 appl Documented By: YDANA Zolpidem Tartrate (Zolpidem Tartrate 5 Mg Tablet) 5 mg PO BEDTIME PRN PRN Reason: Insomnia Last Admin: 12/15/23 00:33 Dose: 5 mg Documented By: DORI Labs 12/15/23 06:00 12/15/23 06:00 Labs: Laboratory Results - last 24 hr 12/15/23 06:00 Anion Gap 12 Estim Creat Clear Calc 71.0 Estimated GFR > 60 Random Glucose 109 Calcium 8.7 Microbiology Microbiology Results: Microbiology 12/14/23 02:12 Blood Culture - Preliminary Blood - Venous No growth after 48 hours. 12/14/23 00:57 Blood Culture - Preliminary Blood - Venous No growth after 48 hours. 12/14/23 02:12 Urine Culture - Final Urine clean catch - Urine mathew top No growth. Assessment and Plan (1) Ethmoid sinusitis: Status: Acute (2) Maxillary sinusitis, acute: Status: Acute Plan This is a 73 year old female with recent dental procedure including multiple tooth extractions and bone grafts for implants who presented to the emergency department with fever headache, facial pressure, purulent nasal discharge and several days of fever despite being treated outpatient with Bactrim Rash, possible drug rash ? from batrim worse today, but no itchness, purulence, drainage developed 4/6 pt face, trunk, feet All abx stopped for now start Prednisone 40 mg daily Diarrhea check stool studies and cdiff Bacterial/purulent left maxillary and ethmoid sinusitis s/p recent dental extraction + bone graft. Failed course of oral Bactrim therapy as an outpatient. treated with IVF and levaquin initially blood cultures negative seen by ID - thought many of her symptoms could be explained by Bactrim intolerance Levquin and Flagyl stopped per ID rec due to rash and overnight monitoring plan for discharge with elly as patient has tolerated before Hx of depression. Takes Zoloft as needed. DVT prophylaxis: SCDs, encourage early ambulation Attending Dr. Monsivais Code status: Full Quality Stroke Does the patient have a stroke diagnosis?: No VTE Prior VTE?: No VTE Risk Level:: Medical - low VTE Device Contraindication: N/A - Device Ordered VTE Drug Contraindication: Treatment Not Indicated
[2023-12-16] MEDS: diphenhydrAMINE HCl 2 % Cream 28 GM TUBE 1 APPL TOPICAL ×2 (11:00→22:05)
[2023-12-16] MEDS: predniSONE 20 MG TABLET 40 MG PO (11:01)
--- NOTE | 2023-12-16 12:30 | MHC.CM.PN ---
PER MD ROUNDS PATIENT IS NOT MEDICALLY CLEARED FOR DC. CM WILL CONTINUE TO FOLLOW.
[2023-12-16 12:59] LABS: CDiff Gene PCR NEGATIVE (Negative)
[2023-12-16 13:46] LABS: Adenovirus F 40/41 Not Detected (Not Detect.); Astrovirus Not Detected (Not Detect.); Campylobacter Not Detected (Not Detect.); Cryptosporidium Not Detected (Not Detect.); Cyclospora cayetanensis Not Detected (Not Detect.); E. coli EAEC Not Detected (Not Detect.); E. coli EPEC Not Detected (Not Detect.); E. coli ETEC Not Detected (Not Detect.); E. coli STEC Not Detected (Not Detect.); Entamoeba histolytica Not Detected (Not Detect.); Giardia lamblia Not Detected (Not Detect.); Norovirus GI/GII Not Detected (Not Detect.); Plesiomonas shigelloides Not Detected (Not Detect.); Rotavirus A Not Detected (Not Detect.); Salmonella Not Detected (Not Detect.); Sapovirus Not Detected (Not Detect.); Shigella sp./EIEC Not Detected (Not Detect.); Vibrio Not Detected (Not Detect.); Vibrio Cholerae Not Detected (Not Detect.); Yersinia enterocolitica Not Detected (Not Detect.)
[2023-12-16 15:33] VITALS: BP 141/67; PULSE 72; RESP 20; TEMP 36; O2SAT 94
[2023-12-16] MEDS: Acetaminophen 325 MG TABLET 975 MG PO (17:17)
[2023-12-16 19:38] VITALS: BP 137/63; PULSE 72; RESP 18; TEMP 36.1; O2SAT 94
[2023-12-17] MEDS: Acetaminophen 325 MG TABLET 975 MG PO (00:23)
[2023-12-17] MEDS: Zolpidem Tartrate 5 MG TABLET PO ×2 (00:23→22:50)
[2023-12-17 02:43] VITALS: BP 149/70; PULSE 66; RESP 18; TEMP 36.3; O2SAT 95
[2023-12-17 07:45] VITALS: BP 128/70; PULSE 72; RESP 14; TEMP 36.8; O2SAT 94
[2023-12-17] MEDS: Sertraline HCL 50 MG TABLET 150 MG PO (08:38)
[2023-12-17] MEDS: predniSONE 20 MG TABLET 40 MG PO (08:38)
[2023-12-17] MEDS: 0.9 % Sodium Chloride Flush 3 ML SYRINGE IVFLUSH ×3 (08:38→21:37)
--- NOTE | 2023-12-17 09:38 | HO.PM.IMPN ---
Subjective Subjective Date of Service: 12/17/23 Interval History: seen and examined this morning follow up for sinusitis, fever drug rash better today other then rash, doing well. no fever, facial pressure improving Review of Systems Review of Systems: Yes all other systems are reviewed and are negative Constitutional Constitutional: Denies chills and Denies fever(s) Cardiovascular Cardiovascular: Denies chest pain, Denies palpitations and Denies dyspnea Respiratory Respiratory: Denies cough and Denies dyspnea Endocrine Endocrine: Denies palpitations Physical Exam Vital Signs: Vital Signs: Last Vital Signs Temp 98.3 F 12/17/23 07:45 Pulse 72 12/17/23 07:45 Resp 14 12/17/23 07:45 BP 128/70 12/17/23 07:45 Pulse Ox 94 12/17/23 07:45 O2 Del Method Room Air 12/17/23 07:45 BMI result Body Mass Index 28.3 Appearing in no acute distress lung sounds are clear to auscultation heart regular rate rhythm, clear S1, S2 positive bowel sounds, abdomen is soft, nontender neuro patient is alert x3, no focal deficits Objective Data Active Medications Acetaminophen (Acetaminophen 325 Mg Tablet) 975 mg PO Q6H PRN PRN Reason: Fever Last Admin: 12/17/23 00:23 Dose: 975 mg Documented By: MCKENZIE Diphenhydramine HCl (Diphenhydramine Hcl 50 Mg/Ml Vial) 50 mg IVPUSH Q4H PRN PRN Reason: Rash Last Admin: 12/15/23 20:04 Dose: 50 mg Documented By: KEY Ibuprofen (Ibuprofen 200 Mg Tablet) 200 mg PO TID PRN PRN Reason: fever, mild pain Stop: 12/19/23 08:59 Prednisone (Prednisone 20 Mg Tablet) 40 mg PO DAILY [facility] Last Admin: 12/17/23 08:38 Dose: 40 mg Documented By: NURIA Sertraline HCl (Sertraline Hcl 50 Mg Tablet) 150 mg PO DAILY [facility] Last Admin: 12/17/23 08:38 Dose: 150 mg Documented By: NURIA Sodium Chloride (0.9 % Sodium Chloride Flush 3 Ml Syringe) 3 ml IVFLUSH QSHIFT [facility] Last Admin: 12/17/23 08:38 Dose: 3 ml Documented By: NURIA Zinc Acetate/Diphenhydramine (Diphenhydramine Hcl 2 % Cream 28 Gm Tube) 1 appl TOPICAL BID PRN; Protocol PRN Reason: Itching Last Admin: 12/16/23 22:05 Dose: 1 appl Documented By: MCKENZIE Zolpidem Tartrate (Zolpidem Tartrate 5 Mg Tablet) 5 mg PO BEDTIME PRN PRN Reason: Insomnia Last Admin: 12/17/23 00:23 Dose: 5 mg Documented By: MCKENZIE Labs 12/15/23 06:00 12/15/23 06:00 Labs: Laboratory Results - last 24 hr 12/15/23 12/16/23 06:00 11:33 Smear Path Review SEE NOTE Stl C. cayetanensis PCR Not Detected Stool Rotavirus A PCR Not Detected Stl Adenov F 40/41 PCR Not Detected Stool Astrovirus (PCR) Not Detected Stool Campylobacter PCR Not Detected Stool Cryptosporidium PCR Not Detected Stl Sh Tox Pr E STEC PCR Not Detected Stool E coli O157 PCR Not applicable Stl Enterotoxigenic E PCR Not Detected Stool EPEC (PCR) Not Detected Stool EAEC (PCR) Not Detected Stl E. histolytica PCR Not Detected Stool Giardia Lamblia PCR Not Detected Stl P. shigelloides PCR Not Detected Stool Salmonella PCR Not Detected Stool Sapovirus (PCR) Not Detected Stl Shigella/EIEC PCR Not Detected St Y.enterocolitica PCR Not Detected Stool Vibrio (PCR) Not Detected Stl Vibrio cholerae PCR Not Detected Stl Norovirus GI/GII PCR Not Detected C. difficile Tox B Gene NEGATIVE Assessment and Plan (1) Ethmoid sinusitis: Status: Acute (2) Maxillary sinusitis, acute: Status: Acute Plan This is a 73 year old female with recent dental procedure including multiple tooth extractions and bone grafts for implants who presented to the emergency department with fever headache, facial pressure, purulent nasal discharge and several days of fever despite being treated outpatient with Bactrim Rash, possible drug rash ? from bactrim developed 4/6 pt face, trunk, feet, back better to feet area and rash seems to be coming together, no itchness, purulence or drainage All abx stopped continue Prednisone 40 mg daily Diarrhea stool studies and cdiff negative Bacterial/purulent left maxillary and ethmoid sinusitis s/p recent dental extraction + bone graft. Failed course of oral Bactrim therapy as an outpatient. treated with IVF and levaquin initially blood cultures negative seen by ID - thought many of her symptoms could be explained by Bactrim intolerance Levquin and Flagyl stopped per ID rec due to rash and overnight monitoring plan for discharge with elly as patient has tolerated before Hx of depression. Takes Zoloft as needed. DVT prophylaxis: SCDs, encourage early ambulation Attending Dr. Monsivais Code status: Full Quality Stroke Does the patient have a stroke diagnosis?: No VTE Prior VTE?: No VTE Risk Level:: Medical - low VTE Device Contraindication: N/A - Device Ordered VTE Drug Contraindication: Treatment Not Indicated
[2023-12-17] MEDS: diphenhydrAMINE HCl 2 % Cream 28 GM TUBE 1 APPL TOPICAL (15:35)
[2023-12-17 15:43] VITALS: BP 128/62; PULSE 72; RESP 16; TEMP 36.4; O2SAT 94
[2023-12-17 19:03] VITALS: BP 121/57; PULSE 88; RESP 18; TEMP 36.3; O2SAT 95
[2023-12-18 03:13] VITALS: BP 136/73; PULSE 68; RESP 18; TEMP 37.2; O2SAT 96
[2023-12-18 07:16] VITALS: BP 122/65; PULSE 81; RESP 16; TEMP 36.7; O2SAT 93
--- NOTE | 2023-12-18 07:29 | P.PNIM_ITS ---
Subjective Subjective Date of Service: 12/18/23 Interval History: seen and examined this morning follow up for sinusitis, fever drug rash better today other then rash, doing well. no fever, facial pressure improving Review of Systems Review of Systems: Yes all other systems are reviewed and are negative Constitutional Constitutional: Denies chills and Denies fever(s) Cardiovascular Cardiovascular: Denies chest pain, Denies palpitations and Denies dyspnea Respiratory Respiratory: Denies cough and Denies dyspnea Endocrine Endocrine: Denies palpitations Physical Exam 2 Vital Signs: Vital Signs: Last Vital Signs Temp 98.1 F 12/18/23 07:16 Pulse 81 12/18/23 07:16 Resp 16 12/18/23 07:16 BP 122/65 12/18/23 07:16 Pulse Ox 93 12/18/23 07:16 O2 Del Method Room Air 12/18/23 07:16 BMI result Body Mass Index 28.3 Appearing in no acute distress lung sounds are clear to auscultation heart regular rate rhythm, clear S1, S2 positive bowel sounds, abdomen is soft, nontender neuro patient is alert x3, no focal deficits Objective Data Active Medications Acetaminophen (Acetaminophen 325 Mg Tablet) 975 mg PO Q6H PRN PRN Reason: Fever Last Admin: 12/17/23 00:23 Dose: 975 mg Documented By: MCKENZIE Diphenhydramine HCl (Diphenhydramine Hcl 50 Mg/Ml Vial) 50 mg IVPUSH Q4H PRN PRN Reason: Rash Last Admin: 12/15/23 20:04 Dose: 50 mg Documented By: KEY Ibuprofen (Ibuprofen 200 Mg Tablet) 200 mg PO TID PRN PRN Reason: fever, mild pain Stop: 12/19/23 08:59 Prednisone (Prednisone 20 Mg Tablet) 40 mg PO DAILY [facility] Last Admin: 12/17/23 08:38 Dose: 40 mg Documented By: NURIA Sertraline HCl (Sertraline Hcl 50 Mg Tablet) 150 mg PO DAILY [facility] Last Admin: 12/17/23 08:38 Dose: 150 mg Documented By: NURIA Sodium Chloride (0.9 % Sodium Chloride Flush 3 Ml Syringe) 3 ml IVFLUSH QSHIFT [facility] Last Admin: 12/17/23 21:37 Dose: 3 ml Documented By: NILA Zinc Acetate/Diphenhydramine (Diphenhydramine Hcl 2 % Cream 28 Gm Tube) 1 appl TOPICAL BID PRN; Protocol PRN Reason: Itching Last Admin: 12/17/23 15:35 Dose: 1 appl Documented By: NURIA Zolpidem Tartrate (Zolpidem Tartrate 5 Mg Tablet) 5 mg PO BEDTIME PRN PRN Reason: Insomnia Last Admin: 12/17/23 22:50 Dose: 5 mg Documented By: NILA Labs 12/15/23 06:00 12/15/23 06:00 Assessment and Plan (1) Ethmoid sinusitis: Status: Acute (2) Maxillary sinusitis, acute: Status: Acute Plan This is a 73 year old female with recent dental procedure including multiple tooth extractions and bone grafts for implants who presented to the emergency department with fever headache, facial pressure, purulent nasal discharge and several days of fever despite being treated outpatient with Bactrim Rash, possible drug rash Likely from bactrim developed 4/6 face, trunk, feet, back better to feet area and rash seems to be coming together, no itchness, purulence or drainage All abx stopped continue Prednisone 40 mg daily, continue 7 days as outpatient Diarrhea. resolved stool studies and cdiff negative Bacterial/purulent left maxillary and ethmoid sinusitis s/p recent dental extraction + bone graft. Failed course of oral Bactrim therapy as an outpatient. treated with IVF and levaquin initially blood cultures negative seen by ID - thought many of her symptoms could be explained by Bactrim intolerance Levquin and Flagyl stopped per ID rec due to rash and overnight monitoring Hx of depression. Takes Zoloft as needed. DVT prophylaxis: SCDs, encourage early ambulation Attending Dr. Monsivais Code status: Full Quality Stroke Does the patient have a stroke diagnosis?: No VTE Prior VTE?: No VTE Risk Level:: Medical - low VTE Device Contraindication: N/A - Device Ordered VTE Drug Contraindication: Treatment Not Indicated
[2023-12-18] MEDS: Sertraline HCL 50 MG TABLET 150 MG PO (07:46)
[2023-12-18] MEDS: predniSONE 20 MG TABLET 40 MG PO (07:46)
[2023-12-18] MEDS: 0.9 % Sodium Chloride Flush 3 ML SYRINGE IVFLUSH ×2 (07:46→15:33)
[2023-12-18] MEDS: Acetaminophen 325 MG TABLET 975 MG PO (07:51)
[2023-12-18 08:51] VITALS: TEMP 36.3
--- NOTE | 2023-12-18 10:47 | MHC.CM.PN ---
EMR reviewed. Per MD rounds patient not medically cleared for dc at this time. No change to dc plan. CM will continue to follow.
--- NOTE | 2023-12-18 13:59 | PM.DS ---
DS: Providers Provider Date of admission: 12/14/23 05:53 Primary care physician: Jens Solano MD Consults: 12/14/23 08:12 Consult to Infectious Diseases Routine Consulting Provider[place] [facility] [place] Reason for consultation: sinusitis, fever, recent tooth extraction/bone graft Has provider been notified: No DS: Diagnosis Discharge Diagnosis (1) Ethmoid sinusitis: Status: Acute (2) Maxillary sinusitis, acute: Status: Acute DS: Summary Hospital Course Hospital Course: History and physical as per admitting provider. Geronimo Hall is a delightful 73 years old woman with no significant past medical history presents to the emergency department accompanied by her son complaining of fever (max 103) over the last several days associated with frontal headache that radiates to the posterior aspect of her neck, nausea and vomiting. She also complained of tenderness in the left upper cheek area. There is no acute visual disturbances Denied sore throat, cough, shortness on breath or chest pain. She denied any acute gastrointestinal or genitourinary symptoms. On November 21 of this year she underwent multiple dental extraction (5 teeth, both side, upper and lower) in addition to bone grafts. He was prescribed to take a course of sulfamethoxazole for 7 days (she has completed 5 days so far). Also, she has been taking Zofran as needed. Patient denied any associated visual disturbances. Son was at bedside and contributes to HPI. Confusion has not been reported. There is no history of tobacco smoking, alcohol abuse or illicit drug use. In the ED she was found to have fever, 101.2. Heart rate is 96. There is no hypotension and O2 sats on room air are normal. Blood workup showed no leukocytosis with neutrophilia. There is no lactic acidosis. Sodium level is slightly low. There are no other significant electrolyte imbalances. LFTs are normal. Renal function is adequate. Urinalysis showed elevated SG, mild proteinuria, mild leukocyte esterase, WBC > 50 and trace ketones. Neck soft tissue CT scan showed prominent uvula and adenoids narrowing the nasopharyngeal area no evidence of mastoiditis, prominent nonspecific lymph nodes through the neck measuring up to 2.3 cm and left maxillary and ethmoid sinus disease. ED tx: NS 1 L bolus, Toradol 30 mg IV, Levaquin 500 mg IV, dexamethasone 6 mg IV, morphine 2 mg IV, Benadryl 25 mg IV and ibuprofen 600 mg PO. Physical Exam Vital Signs: Vital Signs: Last Vital Signs Temp 97.4 F 12/18/23 08:51 Pulse 81 12/18/23 07:16 Resp 16 12/18/23 07:16 BP 122/65 12/18/23 07:16 Pulse Ox 93 12/18/23 07:16 O2 Del Method Room Air 12/18/23 07:16 BMI result Body Mass Index 28.3 DS: Data Data Completed and Pending Labs on day of discharge: Preliminary micro results at discharge 12/14/23 02:12 Blood Culture - Preliminary Blood - Venous No growth after 48 hours. 12/14/23 00:57 Blood Culture - Preliminary Blood - Venous No growth after 48 hours. Discharge Plan Discharge Patient Disposition: Home, Self-Care Discharge Diagnosis: Drug rash Diarrhea Bacterial/purulent left maxillary and ethmoid sinusitis Referrals: Jens Solano MD [Primary Care Provider] - 1 Week Discharge Medications: New prednisone 20 mg Tablet 40 mg PO DAILY Qty: 14 0RF Continued ondansetron HCl 4 mg tablet 4 mg PO Q8H PRN (Reason: Nausea And Vomiting) sertraline 100 mg tablet 150 mg PO DAILY lubiprostone 8 mcg capsule 8 mcg PO BID PRN (Reason: Constipation) estradiol [Yuvafem] 10 mcg tablet 10 mcg vaginal TUTH@0900 Discontinued sulfamethoxazole-trimethoprim 800-160 mg tablet 1 tab PO BID Rx Instructions: END DATE: 12/16/23 Diet: Advance to usual diet Activity on Discharge: As tolerated Stand Alone Forms: Patient Portal Discharge page Print Language: Mongolian Care Plan Goals: Continue prednisone for 7 days Health Concerns: Drug rash Diarrhea Bacterial/purulent left maxillary and ethmoid sinusitis Plan of Treatment: Follow-up with primary care provider as needed Take all medications as prescribed Assessment: See discharge summary
[2023-12-18 15:29] VITALS: BP 133/69; PULSE 73; RESP 18; TEMP 36; O2SAT 95
[2023-12-18 20:00] VITALS: BP 133/64; PULSE 71; RESP 18; TEMP 36.3; O2SAT 96
--- NOTE | 2023-12-18 22:13 | PC.NURSE ---
pt aox3, ambulating throughout room to and from bathroom without difficulty, skin is markedly improved in comparison photos to current assessment. Lungs CTA, +BS x 4, +PP, skin otherwise intact. denies pain, denies any other needs at this time. Will continue to monitor.
[2023-12-18] MEDS: Zolpidem Tartrate 5 MG TABLET PO (22:44)
[2023-12-19] MEDS: 0.9 % Sodium Chloride Flush 3 ML SYRINGE IVFLUSH ×2 (00:58→07:38)
[2023-12-19 03:49] VITALS: BP 131/67; PULSE 76; RESP 20; TEMP 36.3; O2SAT 98
[2023-12-19 05:37] LABS: Hematocrit 32.5 % (37.0-47.0); Mean Corpuscular HGB Conc 33.8 g/dl (31.0-35.0); Mean Corpuscular Hemoglobin 29.9 pg (27.0-33.0); Mean Corpuscular Volume 88.3 fL (80.0-98.0); Mean Platelet Volume 10.1 fL (9.4-12.3); Platelet Count 236 X10*3/uL (160-400); Red Blood Count 3.68 X10*6/uL (4.20-5.50); Red Cell Distribution Width 11.7 % (11.0-16.0); White Blood Count 8.2 X10*3/uL (4.8-10.8)
[2023-12-19 05:52] LABS: Anion Gap 11 (12-20); Blood Urea Nitrogen 12 mg/dL (9-16); Calcium 9.2 mg/dL (8.4-10.2); Carbon Dioxide 28 mmol/L (22-29); Chloride 103 mmol/L (96-108); Estimated Glomerular Filt Rate > 60; Glucose Random 95 mg/dL (60-115); Potassium 4.3 mmol/L (3.3-5.1); Sodium 138 mmol/L (135-145)
[2023-12-19] MEDS: Acetaminophen 325 MG TABLET 975 MG PO (07:38)
[2023-12-19] MEDS: predniSONE 20 MG TABLET 40 MG PO (07:38)
[2023-12-19] MEDS: Sertraline HCL 50 MG TABLET 150 MG PO (07:38)
[2023-12-19 08:00] VITALS: BP 138/67; PULSE 68; RESP 12; TEMP 36.8; O2SAT 95
--- NOTE | 2023-12-19 10:34 | MHC.CM.PN ---
EMR reviewed. Per MD rounds patient is medically cleared for dc home self care. Patient's to provide transportation home. RN aware. IMM delivered.
--- NOTE | 2023-12-19 10:43 | PM.DS ---
DS: Providers Provider Date of Service: 12/19/23 Date of admission: 12/14/23 05:53 Date of discharge: 12/19/23 Primary care physician: Jens Solano MD Consults: 12/14/23 08:12 Consult to Infectious Diseases Routine Consulting Provider: [facility] [place] Reason for consultation: sinusitis, fever, recent tooth extraction/bone graft Has provider been notified: No Attending physician on discharge: Sameer Monsivais Discharging clinician: Magalie Rene DS: Diagnosis Discharge Diagnosis (1) Ethmoid sinusitis: Status: Acute (2) Maxillary sinusitis, acute: Status: Acute DS: Summary Hospital Course Hospital Course: History and physical as per admitting provider. Geronimo Hall is a delightful 73 years old woman with no significant past medical history presents to the emergency department accompanied by her son complaining of fever (max 103) over the last several days associated with frontal headache that radiates to the posterior aspect of her neck, nausea and vomiting. She also complained of tenderness in the left upper cheek area. There is no acute visual disturbances Denied sore throat, cough, shortness on breath or chest pain. She denied any acute gastrointestinal or genitourinary symptoms. On November 21 of this year she underwent multiple dental extraction (5 teeth, both side, upper and lower) in addition to bone grafts. He was prescribed to take a course of sulfamethoxazole for 7 days (she has completed 5 days so far). Also, she has been taking Zofran as needed. Patient denied any associated visual disturbances. Son was at bedside and contributes to HPI. Confusion has not been reported. There is no history of tobacco smoking, alcohol abuse or illicit drug use. In the ED she was found to have fever, 101.2. Heart rate is 96. There is no hypotension and O2 sats on room air are normal. Blood workup showed no leukocytosis with neutrophilia. There is no lactic acidosis. Sodium level is slightly low. There are no other significant electrolyte imbalances. LFTs are normal. Renal function is adequate. Urinalysis showed elevated SG, mild proteinuria, mild leukocyte esterase, WBC > 50 and trace ketones. Neck soft tissue CT scan showed prominent uvula and adenoids narrowing the nasopharyngeal area no evidence of mastoiditis, prominent nonspecific lymph nodes through the neck measuring up to 2.3 cm and left maxillary and ethmoid sinus disease. ED tx: NS 1 L bolus, Toradol 30 mg IV, Levaquin 500 mg IV, dexamethasone 6 mg IV, morphine 2 mg IV, Benadryl 25 mg IV and ibuprofen 600 mg PO. Rash, possible drug rash . Likely from bactrim developed 4/6 face, trunk, feet, back. all antibiotics were stopped and she was started on prednisone. the rash gradually improved. would recommend to continue 4 more days of steroids upon discharge. Diarrhea. resolved stool studies and cdiff negative Bacterial/purulent left maxillary and ethmoid sinusitis s/p recent dental extraction + bone graft. treated with IVF and levaquin initially as it was initially thought to have failed treatment with PO Bactrim. Seen by ID who thought symptoms were likely due to Bactrim intolerance. blood cultures have remained negative. All antibiotics were stopped when she developed rash as above. Symptoms have improved despite no antibiotics for 4 days. She has remained afebrile since the day of admission. Recommend close outpatient follow up with PCP Time Attestation Discharge Coordination Time (in mins): 35 Quality: Safe Use of Opioids Does Pt have an Active Cancer Diagnosis on the Problem List?: No Quality: Stroke Does the patient have a stroke diagnosis?: No Physical Exam Vital Signs: Vital Signs: Last Vital Signs Temp 98.2 F 12/19/23 08:00 Pulse 68 12/19/23 08:00 Resp 12 12/19/23 08:00 BP 138/67 12/19/23 08:00 Pulse Ox 95 12/19/23 08:00 O2 Del Method Room Air 12/19/23 08:00 BMI result Body Mass Index 28.3 Const: General: cooperative, comfortable, no acute distress, alert and awake Nutritional Appearance: average body habitus Orientation/consciousness: patient oriented x3 Resp: Effort & Inspection: normal respiratory effort, able to speak in complete sentences, no respiratory distress and no use of accessory muscles Auscultation: clear to auscultation bilaterally Cardio: Rate: regular rate GI: Inspection: No distended Palpation (GI): Soft to palpation and nontender Skin: Other: rash trunk, toes, legs improving less red, nonpainful Neuro: General: patient oriented x3, moves all extremities and CN's II-XI intact bilaterally DS: Data Data Completed and Pending Labs on day of discharge: Laboratory Results - last 24 hr 12/19/23 04:57 WBC 8.2 RBC 3.68 L Hgb 11.0 L Hct 32.5 L MCV 88.3 MCH 29.9 MCHC 33.8 RDW 11.7 Plt Count 236 D MPV 10.1 Absolute Nucleated RBC 0.000 Nucleated RBC % (auto) 0.0 Sodium 138 Potassium 4.3 Chloride 103 Carbon Dioxide 28 Anion Gap 11 L BUN 12 Creatinine 0.69 Estim Creat Clear Calc 74.0 Estimated GFR > 60 Random Glucose 95 Calcium 9.2 Discharge Plan Discharge Anticipated Discharge Date/Time: 12/19/23 10:35 Patient Disposition: Home, Self-Care Discharge Diagnosis: Drug rash Diarrhea purulent left maxillary and ethmoid sinusitis Referrals: Jens Solano MD [Primary Care Provider] - 1 Week Discharge Medications: New prednisone 20 mg Tablet 40 mg PO DAILY Qty: 8 0RF Continued ondansetron HCl 4 mg tablet 4 mg PO Q8H PRN (Reason: Nausea And Vomiting) sertraline 100 mg tablet 150 mg PO DAILY lubiprostone 8 mcg capsule 8 mcg PO BID PRN (Reason: Constipation) estradiol [Yuvafem] 10 mcg tablet 10 mcg vaginal TUTH@0900 Discontinued sulfamethoxazole-trimethoprim 800-160 mg tablet 1 tab PO BID Rx Instructions: END DATE: 12/16/23 Discharge Orders: Discharge Order (Routine); Ordered 12/19/23 Ordered By: Magalie Rene Diet: Advance to usual diet Activity on Discharge: As tolerated Stand Alone Forms: Patient Portal Discharge page Print Language: Northern Irish Care Plan Goals: Continue prednisone for 4 more days days Health Concerns: Drug rash Diarrhea purulent left maxillary and ethmoid sinusitis Plan of Treatment: Follow-up with primary care provider as needed Take all medications as prescribed avoid sulfa drugs in the future Assessment: See discharge summary
== END 2023-12-19 10:00 | disposition home or self-care (01) | DRG 153 ==
LOC: HO.ED 12-14 01:44 → HO.EDOVER 12-14 06:31 → HO.S3 12-14 11:02
PROVIDERS: Nurse Practitioner Acute Care; Admitting Provider Internal Medicine; Emergency Provider Emergency Medicine; PCP Internal Medicine; Visit Provider Physician Assistant Medical
DX: J01.80 Other acute sinusitis (principal); B96.89 Other specified bacterial agents as the cause of diseases classified elsewhere; F32.A Depression, unspecified; L27.0 Generalized skin eruption due to drugs and medicaments taken internally; T36.8X5A Adverse effect of other systemic antibiotics, initial encounter; Z20.822 Contact with and (suspected) exposure to COVID-19; Z79.899 Other long term (current) drug therapy
CPT/HCPCS: 0241U; 36415; 70491; 71045; 80048; 80053; 81001; 83605; 85025; 85027; 86140; 87040; 87086; 87493; 87507; 99285; J1100; J1200; J1885; J1956; J2270; J7120; Q9967

== ENCOUNTER → 2023-12-14 05:53 | Outpatient (BNV) | payer MEDICARE, BC, SELFPAY | PROVIDERS: Admitting Provider Internal Medicine; Emergency Provider Emergency Medicine; PCP Internal Medicine; Visit Provider Internal Medicine | DX: J01.20 Acute ethmoidal sinusitis, unspecified (principal); J01.00 Acute maxillary sinusitis, unspecified | CPT/HCPCS: 99222; 99232; 99239; 99499 ==

== ENCOUNTER → 2023-12-14 05:53 | Outpatient (BNV) | payer MEDICARE, BC, SELFPAY | PROVIDERS: Admitting Provider Internal Medicine; Emergency Provider Emergency Medicine; PCP Internal Medicine; Visit Provider Internal Medicine | DX: R50.9 Fever, unspecified (principal) | CPT/HCPCS: 99222 ==

== ENCOUNTER 2024-06-10 10:53 | Outpatient (REF) | payer MEDICARE, BC, SELFPAY ==
[2024-06-10 13:06] LABS: MANUAL DIFF FLAG NO
[2024-06-10 13:08] LABS: Basophils Absolute Auto 0.1 X10*3/uL (0.0-0.2); Basophils Percent Auto 1.1 % (0-2); Eosinophils Absolute Auto 0.1 X10*3/uL (0.0-0.4); Eosinophils Percent Auto 2.3 % (0-4); Hematocrit 38.3 % (37.0-47.0); Hemoglobin 12.7 g/dl (12.0-16.0); Imm Gran Abs Auto 0.02 X10*3/uL (0.00-0.03); Imm Gran Pct Auto 0.4 % (0.0-0.4); Lymphocytes Absolute Auto 1.8 X10*3/uL (1.2-4.9); Lymphocytes Percent Auto 34.3 % (20-40); Mean Corpuscular HGB Conc 33.2 g/dl (31.0-35.0); Mean Corpuscular Hemoglobin 30.2 pg (27.0-33.0); Mean Platelet Volume 10.5 fL (9.4-12.3); Monocytes Absolute Auto 0.4 X10*3/uL (0.1-1.2); Monocytes Percent Auto 7.2 % (2-11); Neutrophils Absolute Auto 2.9 x10*3/uL (2.0-8.3); Neutrophils Percent Auto 54.7 % (45-73); Platelet Count 217 X10*3/uL (160-400); Red Blood Count 4.21 X10*6/uL (4.20-5.50); Red Cell Distribution Width 12.3 % (11.0-16.0); White Blood Count 5.3 X10*3/uL (4.8-10.8)
[2024-06-10 13:32] LABS: Blood Urea Nitrogen 14 mg/dL (9-16); Estimated Glomerular Filt Rate > 60
== END 2024-06-10 10:54 | disposition home or self-care (01) ==
LOC: HO.10HDL 10:53
PROVIDERS: Visit Provider Otolaryngology
DX: C85.90 Non-Hodgkin lymphoma, unspecified, unspecified site (principal)
CPT/HCPCS: 36415; 82565; 84520; 85025

== ENCOUNTER 2024-06-17 15:42 | Outpatient (REF) | payer MEDICARE, BC, SELFPAY ==
--- NOTE | ~2024-06-17 | CT_ITS ---
EXAMINATION: CT NECK AND SINUS WITHOUT CONTRAST CLINICAL INFORMATION: Nasopharyngeal lesion . COMPARISON: CT soft tissue neck 12/14/2023. CT facial bones 10/28/2018. TECHNIQUE: Spiral postcontrast CT imaging of the neck and paranasal sinuses was performed in axial plane spanning the mid parietal calvarial region to the superior mediastinum. Sagittal, coronal, and thin section axial reconstructed images were obtained from the axial data set. 66 cc Omnipaque [address] examination was performed using dose optimization techniques as appropriate, variously including the following: *Automated exposure control *Adjustment of mA and/or kV according to patient size (this includes techniques or standardized protocols for targeted exams where dose is matched to indication/reason for exam; i.e. extremities or head) *Use of iterative reconstruction technique DLP: 266 mGy-cm FINDINGS: PARANASAL SINUSES: POSTOPERATIVE FINDINGS: -There has been left alveolar ridge bone grafting of the maxilla. MAXILLARY DENTAL FINDINGS: -Periodontal disease and lucency surrounding teeth root tips #5 and #12. -#1-4, and #13-16 are missing. NASAL CAVITY: -Mild extension of soft tissue through the left maxillary antra into the lateral aspect, left middle meatus in relation to suspected left antral choanal polyp. -There is minimal left nasal septal deviation with a prominent leftward spur. -Nasal cavity is otherwise well pneumatized. TURBINATES: -Middle, superior, and inferior turbinates have normal morphology and appearance. MAXILLARY SINUSES: -Complete opacification of the left maxillary antra, with a thick rind of enhancing soft tissue circumferentially within the antrum, a small amount of bony dehiscence of the medial left antral wall measuring an estimated 1.9 x 0.9 cm (AP, CC). There is extension of enhancing soft tissue 5 mm laterally through the bony defect highly suggestive of an antrochoanal polyp. This also extends through the big sandy left maxillary ostia. (Series 3, image 22; series 6, image 29). -The right maxillary sinus demonstrates a tiny amount of dependent mucosal thickening. It is otherwise clear. The right maxillary ostia is widely patent. ETHMOID SINUSES: -Partial opacification of the left anterior ethmoid air cells. -Otherwise normally pneumatized. FRONTAL SINUSES: -Normal pneumatization bilaterally. -The left frontal recess is narrowed but a thin air channel remains patent. The right frontal recess is patent. SPHENOID SINUSES: -Normally pneumatized bilaterally. -The sphenoethmoidal recesses are patent bilaterally. PREOPERATIVE ANATOMY: -There are type II cribriform plates. The right is minimally lower. -The fovea ethmoidalis and lateral lamella are left-sided lower. -The anterior ethmoid canals are not surrounded by air. CT NECK: -No enlarged lymph nodes by size criteria. -No masses. -Fatty change of both parotid glands. -Normal submandibular glands. -Multinodular goiter of the thyroid. -No retropharyngeal abnormality. There is a retropharyngeal course of the right proximal ICA. -Parapharyngeal fat planes are undisturbed. -Retromaxillary fat planes are preserved without infiltration. Anterior premaxillary fat planes are preserved bilaterally. -No carotid space abnormality. -No mucosal space abnormality -There is a tiny right-sided air containing laryngocele. Subglottic trachea appears normal. -Globes and orbital contents are normal in appearance. -Mastoids and tympanic cavities are normally aerated. -Imaged intracranial contents demonstrate no mass effect, edema, or abnormal enhancement. -Imaged superior mediastinal structures are normal. -Imaged lung apices are clear bilaterally. -Left TM joint degenerative changes greater than right. -No acute or suspicious bony abnormalities. -There are pacchionian granulations in the occipital bone. -Relatively severe spondylosis of the cervical spine most notable spanning C4-C7. CT/CT soft tissue neck w IV con IMPRESSION: 1. Complete opacity left maxillary antrum with peripheral thick enhancing soft tissue, apparent dehiscence of the medial maxillary wall, and mild extension into the left middle meatus laterally by approximately 6 mm. Findings are suggestive of an antral choanal polyp. 2. Paranasal sinuses are otherwise essentially normal aside from patchy opacification of the left anterior ethmoid sinuses and left frontal recess. 3. No evidence of abnormal lymphadenopathy or metastatic disease in the head or neck. 4. Additional ancillary findings as discussed in the body of the report. Electronically signed by: Kasi Figueroa MD 07/23/2024 11:[address] [facility]
[2024-06-17] MEDS: iohexoL 350 MG/ML 75 ML INFUS..BTL 60 ML IV (16:16)
== END 2024-06-17 15:43 | disposition home or self-care (01) ==
LOC: HO.CT 15:42
PROVIDERS: PCP Internal Medicine; Visit Provider Otolaryngology
DX: J33.0 Polyp of nasal cavity (principal); D37.05 Neoplasm of uncertain behavior of pharynx
CPT/HCPCS: 70486; 70491; Q9967

== ENCOUNTER → 2024-06-17 15:44 | Outpatient (BNV) | payer MEDICARE, BC, SELFPAY | PROVIDERS: PCP Internal Medicine; Visit Provider Radiology Diagnostic Radiology | DX: J33.0 Polyp of nasal cavity (principal) | CPT/HCPCS: 70486; 70491 ==

== ENCOUNTER 2024-10-06 09:03 | Outpatient (AMB) | payer MEDICARE, BC, SELFPAY ==
--- NOTE | 2024-10-06 09:08 | A.OFFPC_ITS ---
Vital Signs 10/06/24 09:11 Height 5 ft 2.8 in Weight 174 lb BMI 31.0 BP 140/60 H Blood Pressure Location Lt brachial Position Sitting Pulse 88 Pulse Source Pulse Oximeter Temp 97.3 F Temp Source Skin Pulse Oximetry (%) 96 Oxygen Delivery Method Room Air Intake Visit Reasons: pulled muscle Intake Note: Patient is here to follow up on pulled muscle. [place]ark Carpenter Required: No Pullman Conductor: Not Required per policy Accompanied by: Self / Same As Patient Allergies sulfamethoxazole [From Bactrim] Allergy (Intermediate, Verified 10/06/24 16:46) Rash trimethoprim [From Bactrim] Allergy (Intermediate, Verified 10/06/24 16:46) Rash morphine [MORPHINE] Allergy (Unknown, Verified 10/06/24 16:46) UNKNOWN Penicillins [PENICILLINS] Allergy (Unknown, Verified 10/06/24 16:46) UNKNOWN Medication List - Last Reconciled 10/09/24 by Jose Anderson MD estradiol (Yuvafem) 10 mcg vaginal TUTH@0900 lubiprostone 8 mcg PO BID PRN ondansetron HCl 4 mg PO Q8H PRN sertraline 150 mg PO DAILY Tobacco use date assessed: 10/06/24 Fall risk assessment: No Falls in past year Last assessed Fall Risk: 10/06/24 Dental Screening Dental Screen Date: 10/06/24 Did you have a dental visit in the last 12 months?: Yes Did you have a dental problem in the last 6 months where you did not have access to dental care?: No Was dental information given to patient?: Patient has dentist HPI pulled muscle HPI Details The patient is a 73-year-old female that is presenting with pulled muscle in the right upper abdomen towards the lateral side She is a patient of [facility]IA[facility] Lewis Patient reports that on 09/08/24, she was about to have her nasal surgery done in [place]. Reports that she pulled herself up on the gurney and immediately felt like she pulled a muscle She reports that that pain has been ongoing since to the right side of her abdomen Reports that sometimes it feels like the pain radiates to her back area as well The patient also endorses chronic back pain and reports that she is not sure if what she feel in his a new pain Reports that walking around for extended period or lifting things makes it worse Reports that the pain is a 6-7/10 in that it feels like a throbbing/soreness She denies nausea and vomiting, abdominal pain in other quadrants Reports that she has been using ibuprofen 400 mg with positive effect as needed On exam: Small abdominal protruded area above umbilicus, disappears on when laying pain above right side of rib with palpation -will order us abdomen, reports she has a history of hernia and she is concerned about the protruded area [facility] Medical History (Updated 10/06/24 @ 20:23 by SHAZIA Cordero) Fever of unknown origin Depression Surgical History History of nasal surgery History of dental surgery Social History Household Members: Significant Other Housing: House Do you presently have visiting nurse or other home services: No Alcohol intake: never Patient Tobacco Use Status: Never used Tobacco e-Cigarette/Vaping Use: Never Used Second Hand Smoke Exposure: No service: No Current occupational status: unemployed Cognitive needs: No Hearing needs: No Vision needs: Yes (Glasses) Questionnaire PHQ-9 Over the last 2 weeks, how often have you been bothered by any of the following problems? 1. Little interest or pleasure in doing things: not at all 2. Feeling down, depressed, or hopeless: several days (currently on medication) 3. Trouble falling or staying asleep, or sleeping too much: not at all 4. Feeling tired or having little energy: not at all 5. Poor appetite or overeating: not at all 6. Feeling bad about yourself - or that you are a failure or have let yourself or your family down: not at all 7. Trouble concentrating on things, such as reading the newspaper or watching television: not at all 8. Moving or speaking so slowly that other people could have noticed. Or the opposite - being so fidgety or restless that you have been moving around a lot more than usual: not at all 9. Thoughts that you would be better off or of hurting yourself in some way: not at all Total score: 1 Depression Screening Interpretation: Negative Depression Screening Done: Yes 89591 - PHQ-9 Billing: Yes Source: Developed by Drs. Zi Roque, Yas Sheldon, Steve Washington and colleagues, with an educational hay from [employer]. Thrive Questionnaire Date Thrive assessed: 10/06/24 I am a: Patient What is your living situation today?: I have a steady place to live Within the past 12 months, did the food you bought not last and you didn't have the money to get more?: Never true Within the past 12 months, did you worry whether your food would run out before you got money to buy more?: Never true Do you have trouble paying for medicines?: No Do you have trouble getting transportation to medical appointments?: No Do you have trouble paying your heating and electricity bill?: No Do you have trouble taking care of your child, family member or friend?: No Do you have trouble with day-to-day activities such as bathing, preparing meals, shopping, managing finances, etc.?: No Are you currently unemployed and looking for a job?: No Are you interested in more education?: No Please select the resources that you would like help with: None Currently or been in a relationship where the following occur: No concerns reported THRIVE Score: 0 AUDIT C Alcohol Use Questionnaire (AUDIT-C) 1. How often do you have a drink containing alcohol?: Never Total Score: 0 Score Reviewed/Action Taken: Yes SHIMA-7 AMB Questionnaire SHIMA-7 Date SHIMA - 7 assessed: 10/06/24 Feeling nervous, anxious, or on edge: 0 = Not at all Not being able to stop or control worryin = Not at all Worrying too much about different things: 0 = Not at all Trouble relaxin = Not at all Being so restless that it is hard to sit still: 0 = Not at all Becoming easily annoyed or irritable: 0 = Not at all Feeling afraid as if something awful might happen: 0 = Not at all Total SHIMA-7 score (0-4 normal; 5-9 mild; 10-14 moderate; 15-21 severe): 0 Source: Developed by Drs. Zi Roque, Yas Sheldon, Steve Washington and colleagues, with an educational hay from [employer]. SHIMA-7 Assessment Billing SHIMA-7 Assessment Tool: SHIMA-7 Assessment 10461 Review of Systems Const Details: Denies chills, Denies fatigue, Denies fever(s), Denies headache(s) and Denies weakness HEENT Denies change in vision, Denies dizziness, Denies headache(s), Denies hearing loss, Denies nasal congestion, Denies sinus pain, Denies sinus pressure and Denies sore throat Card Denies chest pain, Denies lightheadedness, Denies dyspnea and Denies other (palpitations) Resp Denies cough, Denies dyspnea and Denies wheezing GI +abdominal pain (post-pulled muscle), Denies melena, Denies hematochezia, Denies change in bowel habits, Denies dyspepsia and Denies nausea Other: Small protruded areas above umbilicus while standing that disappears with lying down Denies hematuria and Denies dysuria Musc Denies abnormal gait, + myalgias, + chronic back pain, Denies numbness and Denies tingling Skin/Breast Denies rash, Denies unusual bruising and Denies wounds Neuro Denies abnormal gait, Denies dizziness, Denies headache(s), Denies memory loss, Denies numbness, Denies Sensory deficit (Neuro), Denies tingling and Denies weakness Psych Denies anxiety, Denies depression and Denies memory loss Endo Denies cold intolerance, Denies fatigue, Denies heat intolerance, Denies polydipsia and Denies polyuria Vasyl/Lymph Denies easy bleeding and Denies easy bruising Aller/Immun Denies wheezing Physical exam (Primary Care) Vital Signs: Last Vital Signs Temp 97.3 F 10/06/24 09:11 Pulse 88 10/06/24 09:11 BP 140/60 H 10/06/24 09:11 Pulse Ox 96 10/06/24 09:11 Oxygen Delivery Method Room Air 10/06/24 09:11 BMI result Body Mass Index 31.0 Tobacco/Smoking Status: Tobacco use Status Tobacco use date assessed 10/06/24 10/06/24 09:16 Patient Tobacco Use Status Never used Tobacco 10/06/24 09:16 e-Cigarette/Vaping Use Never Used 10/06/24 09:16 PHQ-9: PHQ-9 Score PHQ-9: Total score 1 10/06/24 17:01 Depression Screening Interpretation: Negative Thrive Assessment: Date of Thrive Assessment Date Thrive assessed 10/06/24 10/06/24 09:16 Currently or been in a relationship where the following occur: No concerns reported Const Other: General: no acute distress, well developed, alert and awake Nutritional Appearance: well nourished Orientation/consciousness: patient oriented x3 [facility] Head: Yes normocephalic and Yes atraumatic Ears: hearing grossly normal bilaterally and TM's normal bilaterally General nose exam: Normal external nose present and Normal nares present Mouth: Normal oral and palatal mucosa present and moist mucous membranes Teeth and gingiva: dentition normal Throat: Yes oropharynx normal Eyes Pupils: Equal, round and reactive pupils present and Pupil accommodation reflex normal EOM: EOMs intact bilaterally Neck Neck: Yes normal visual inspection, Yes no lymphadenopathy and Yes trachea midline Thyroid: Thyroid normal Carotids: no bruits Lymphatic: no lymphadenopathy noted Chest Chest palpation & inspection: normal inspection of the chest Resp Effort & Inspection: normal respiratory effort Auscultation: clear to auscultation bilaterally Cardio Rate: regular rate Rhythm: regular rhythm Heart sounds: S1 normal heart sound present, S2 normal heart sound present, no gallops, no murmurs and no rubs Bruits: no abdominal aortic bruits and no carotid bruits GI Other: Small protruded areas above umbilicus while standing that disappears with lying down Palpation (GI): No Abdominal aortic bruit present, + right upper quadrant pain (s/p muscle strain) No hepatosplenomegaly present and No Rebound tenderness present Auscultation: normal bowel sounds General: Yes no CVA tenderness Back/Spine/Pelvis Back: no CVA tenderness Cervical Spine: cervical ROM normal and No Cervical spine tenderness Thoracic/Lumbar Spine: thoraco-lumbar ROM normal, No pain with thoraco-lumbar ROM, No thoracic spinal tenderness and No lumbar spinal tenderness Skin General: warm and dry. Normal skin color. Normal skin turgor Lesions: no lesions Nails: normal Neuro General: patient oriented x3, gait normal Cranial nerves: Yes Equal, round and reactive pupils present Cognition (Neuro): normal cognition Gait exam (Neuro): Normal gait present Extrem General: Yes normal to inspection, No edema and No calf tenderness Psych Appearance: grossly normal Affect: normal affect Attitude: cooperative Thought process: Normal thought process present Coding Level of Care Code Est Pt Level 3 (28834) Diagnoses Right upper quadrant abdominal pain R10.11 Abdominal location: right upper quadrant Strain of abdominal muscle, initial encounter S39.011A Encounter type: initial encounter Protuberant abdomen R19.8 Additional Codes SHIMA-7 Assessment Billing - SHIMA-7 Assessment Tool: SHIMA-7 Assessment 69298 ([id number]) PHQ-9 - 13684 - PHQ-9 Billing: Yes ([id number]) Time Spent (min) 29 Assessment & Plan Assessment & Plan (1) Abdominal pain: Code(s): R10.9 - Unspecified abdominal pain Category: Medical Qualifiers: Abdominal location: right upper quadrant Qualified Code(s): R10.11 - Right upper quadrant pain Plan: Suspicion of related to postop abdominal strain Continue ibuprofen OTC, the use warm compress (allow 20 minutes interval between warm compress) (2) Abdominal muscle strain: Code(s): S39.011A - Strain of muscle, fascia and tendon of abdomen, initial encounter Category: Medical Qualifiers: Encounter type: initial encounter Qualified Code(s): S39.011A - Strain of muscle, fascia and tendon of abdomen, initial encounter Plan: Reports repositioned in self on gurney when she felt her muscle pulled in the abdominal area Continue ibuprofen OTC, the use warm compress (allow 20 minutes interval between warm compress) (3) Protuberant abdomen: Code(s): R19.8 - Other specified symptoms and signs involving the digestive system and abdomen Category: Medical Plan: Small protruding area slightly above umbilicus with patient standing that disappears with the patient laying down Patient reports a history of hernias Abdominal ultrasound ordered Plan To return as scheduled next week for her appointment with her PCP Orders: Orders US abdomen complete 10/06/24 R10.9 - Unspecified abdominal pain Medications: Discontinued prednisone Discontinued Reason: Patient Completed Course 40 mg (2 x 20 mg) PO DAILY 8 tabs 0RF
[2024-10-06 09:11] VITALS: BP 140/60; PULSE 88; TEMP 36.3; O2SAT 96; BMI 31.0
== END 2024-10-06 09:46 | disposition home or self-care (01) ==
PROVIDERS: PCP Physician Assistant
DX: R10.11 Right upper quadrant pain (principal); S39.011A Strain of muscle, fascia and tendon of abdomen, initial encounter; R19.8 Other specified symptoms and signs involving the digestive system and abdomen

== ENCOUNTER → 2024-10-06 09:03 | Outpatient (BNVA) | payer MEDICARE, BC, SELFPAY | PROVIDERS: PCP Physician Assistant | DX: R10.11 Right upper quadrant pain (principal); R19.8 Other specified symptoms and signs involving the digestive system and abdomen; S39.011A Strain of muscle, fascia and tendon of abdomen, initial encounter; X58.XXXA Exposure to other specified factors, initial encounter; Y93.9 Activity, unspecified; Y92.9 Unspecified place or not applicable; Y99.9 Unspecified external cause status | CPT/HCPCS: 96127; 99212 ==

== ENCOUNTER 2024-10-14 13:34 | Outpatient (REF) | payer MEDICARE, BC, SELFPAY ==
--- NOTE | ~2024-10-14 | US_ITS ---
CLINICAL HISTORY: R10.9 - Unspecified abdominal pain US abdomen complete Comparison: None Findings: The visualized pancreas is normal. The aorta and inferior vena cava are normal caliber. The liver is normal in size and echotexture. There is no intrahepatic bile duct dilatation. The common duct is 5 mm in diameter. Mild prominence of the intrahepatic ducts. Status post cholecystectomy. The main portal vein is antegrade. The right kidney is 10.9 cm in length. The left kidney is 10.5 cm in length. Multiple small parapelvic cysts measuring up to 1.5 cm. The spleen is normal. No ascites. IMPRESSION: 1. Mildly prominent intra hepatic ducts with CBD measuring up to 5 mm in diameter, likely related to post cholecystectomy status. 2. Multiple small left kidney parapelvic cysts measuring up to 1.5 cm. This document has been electronically signed by: Tati Saez MD on 10/14/2024 23:09:29
== END 2024-10-14 13:35 | disposition home or self-care (01) ==
LOC: HO.HMGCX 13:34
PROVIDERS: PCP Internal Medicine
DX: R10.9 Unspecified abdominal pain (principal)
CPT/HCPCS: 76700

== ENCOUNTER → 2024-10-14 14:00 | Outpatient (BNV) | payer MEDICARE, BC, SELFPAY | PROVIDERS: PCP Internal Medicine; Visit Provider Student in an Organized Health Care Education/Training Program | DX: N20.0 Calculus of kidney (principal) | CPT/HCPCS: 76700 ==

== ENCOUNTER → 2024-10-15 14:18 | Outpatient (BNVA) | payer MEDICARE, BC, SELFPAY | PROVIDERS: PCP Physician Assistant; Visit Provider Internal Medicine | DX: S39.011D Strain of muscle, fascia and tendon of abdomen, subsequent encounter (principal) | CPT/HCPCS: 99212 ==

== ENCOUNTER 2024-12-29 14:06 | Outpatient (AMB) | payer MEDICARE, BC, SELFPAY ==
--- NOTE | 2024-12-29 14:11 | MHC.PC.OV ---
Vital Signs 12/29/24 14:13 Height 5 ft 2.8 in Weight 177 lb BMI 31.6 BP 144/80 H Respiration 14 Pulse 80 Pulse Source Pulse Oximeter Temp 97.6 F Temp Source Temporal Artery Scan Pulse Oximetry (%) 97 Oxygen Delivery Method Room Air Intake Visit Reasons: physical - see comments Xerox Machine Mechanic Required: No Accompanied by: Self / Same As Patient Allergies sulfamethoxazole [From Bactrim] Allergy (Intermediate, Verified 12/29/24 14:14) Rash trimethoprim [From Bactrim] Allergy (Intermediate, Verified 12/29/24 14:14) Rash morphine [MORPHINE] Allergy (Unknown, Verified 12/29/24 14:14) UNKNOWN Penicillins [PENICILLINS] Allergy (Unknown, Verified 12/29/24 14:14) UNKNOWN Tobacco use date assessed: 12/29/24 Fall risk assessment: No Falls in past year Last assessed Fall Risk: 12/29/24 Dental Screening Dental Screen Date: 12/29/24 Did you have a dental visit in the last 12 months?: Yes Did you have a dental problem in the last 6 months where you did not have access to dental care?: No Was dental information given to patient?: Patient has dentist [facility] Medical History (Updated 12/29/24 @ 14:34 by Wilian Bergeron MD) Fever of unknown origin Depression Surgical History History of nasal surgery History of dental surgery Social History (Updated 12/29/24 @ 14:21 by ANDRES Medrano) Household Members: Significant Other Housing: House Do you presently have visiting nurse or other home services: No Alcohol intake: current Alcohol intake frequency: holidays/special occasions only Patient Tobacco Use Status: Never used Tobacco e-Cigarette/Vaping Use: Never Used Second Hand Smoke Exposure: No service: No Current occupational status: unemployed Cognitive needs: No Hearing needs: No Vision needs: Yes (reading Glasses) Questionnaire PHQ-9 Over the last 2 weeks, how often have you been bothered by any of the following problems? 1. Little interest or pleasure in doing things: not at all 2. Feeling down, depressed, or hopeless: several days (currently on medication) 3. Trouble falling or staying asleep, or sleeping too much: not at all 4. Feeling tired or having little energy: not at all 5. Poor appetite or overeating: not at all 6. Feeling bad about yourself - or that you are a failure or have let yourself or your family down: not at all 7. Trouble concentrating on things, such as reading the newspaper or watching television: not at all 8. Moving or speaking so slowly that other people could have noticed. Or the opposite - being so fidgety or restless that you have been moving around a lot more than usual: not at all 9. Thoughts that you would be better off or of hurting yourself in some way: not at all Total score: 1 Depression Screening Interpretation: Negative Depression Screening Done: Yes 50225 - PHQ-9 Billing: Yes Source: Developed by Drs. Zi Roque, Yas Sheldon, Steve Washington and colleagues, with an educational hay from [employer]. Thrive Questionnaire Date Thrive assessed: 10/15/24 I am a: Patient What is your living situation today?: I have a steady place to live Within the past 12 months, did the food you bought not last and you didn't have the money to get more?: Never true Within the past 12 months, did you worry whether your food would run out before you got money to buy more?: Never true Do you have trouble paying for medicines?: No Do you have trouble getting transportation to medical appointments?: No Do you have trouble paying your heating and electricity bill?: No Do you have trouble taking care of your child, family member or friend?: No Do you have trouble with day-to-day activities such as bathing, preparing meals, shopping, managing finances, etc.?: No Are you currently unemployed and looking for a job?: No Are you interested in more education?: No Please select the resources that you would like help with: None Currently or been in a relationship where the following occur: No concerns reported THRIVE Score: 0 AUDIT C Alcohol Use Questionnaire (AUDIT-C) 1. How often do you have a drink containing alcohol?: Monthly or less 2. How many drinks containing alcohol do you have on a typical day when you are drinking?: 1 or 2 3. How often do you have six or more drinks on one occasion?: Never Total Score: 1 SIHMA-7 AMB Questionnaire SHIMA-7 Date SHIMA - 7 assessed: 10/15/24 Feeling nervous, anxious, or on edge: 0 = Not at all Not being able to stop or control worryin = Not at all Worrying too much about different things: 0 = Not at all Trouble relaxin = Not at all Being so restless that it is hard to sit still: 0 = Not at all Becoming easily annoyed or irritable: 0 = Not at all Feeling afraid as if something awful might happen: 0 = Not at all Total SHIMA-7 score (0-4 normal; 5-9 mild; 10-14 moderate; 15-21 severe): 0 Source: Developed by Drs. Zi Roque, Yas Sheldon, Steve Washington and colleagues, with an educational hay from [employer]. Physical exam (Primary Care) Vital Signs: Last Vital Signs Temp 97.6 F 12/29/24 14:13 Pulse 80 12/29/24 14:13 Resp 14 12/29/24 14:13 BP 144/80 H 12/29/24 14:13 Pulse Ox 97 12/29/24 14:13 Oxygen Delivery Method Room Air 12/29/24 14:13 BMI result Body Mass Index 31.6 Tobacco/Smoking Status: Tobacco use Status Tobacco use date assessed 12/29/24 12/29/24 14:21 Patient Tobacco Use Status Never used Tobacco 12/29/24 14:21 e-Cigarette/Vaping Use Never Used 12/29/24 14:21 PHQ-9: PHQ-9 Score PHQ-9: Total score 1 12/29/24 14:21 Depression Screening Interpretation: Negative Thrive Assessment: Date of Thrive Assessment Date Thrive assessed 10/15/24 12/29/24 14:21 Currently or been in a relationship where the following occur: No concerns reported Coding Level of Care Code Est Pt Level 4 (10486) Complex EM visit Add On G2211 Diagnoses Depression F32.A Additional Codes PHQ-9 - 51844 - PHQ-9 Billing: Yes ([id number]) Assessment & Plan Assessment & Plan (1) Depression: Code(s): F32.A - Depression, unspecified Category: Medical Plan: Encouraged patient to get back on Sertraline. Plan History of Present Illness The patient is a 74-year-old female presenting with concerns about her stool floating and inquiries regarding its normalcy. Recently, she noticed that her stools floated and sought confirmation if this could be a usual occurrence. Instances of floating stool are discussed concerning possible dietary factors such as the presence of oil. The patient experiences anxiety and reports non-compliance with her Zoloft regimen. She cites obsessive thoughts and variable anxiety levels. Her medical history includes IBS, with several past colonoscopies revealing no abnormalities. The last colonoscopy, conducted seven years prior, indicated no recurrent pathology, and further colonic examinations are planned following the typical ten-year interval. The patient also expressed concern about gastrointestinal pain related to her IBS. 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 - No current employment. - Family status includes raising six children and having four grandchildren. - Children are professionally established, with careers in education, medicine, technology, and academia. - A social support network is indicated through family proximity and interactions. Review of Systems - Gastrointestinal: Reports floating stool; denies any recent scheduled colonoscopy. - Psychiatric: Reports anxiety and obsessive-compulsive tendencies; acknowledges not taking prescribed Zoloft. Physical Exam General: Cooperative and healthy appearing Nutritional Appearance: Well nourished Orientation/consciousness: Patient oriented x3 Limitations: No limitations Head: Normal to inspection General: Appearance normal, both eyes and all related structures Neck: Normal visual inspection Chest: Normal palpation of entire chest wall Respiratory: Normal respiratory effort Neurology: Patient oriented x3 Results - Tests and Diagnostics: Previous colonoscopy seven years ago with normal findings. Plan The patient will restart her Zoloft medication to address anxiety and will pursue regular adherence. Floating stool was deemed non-concerning unless accompanied by other symptoms, aligning with her previous unremarkable colonoscopy findings. The necessity for any changes in the colonoscopy schedule was deferred pending confirmation of prior result records. Upcoming blood work is planned for comprehensive health assessment. Current IBS management was maintained without modifications. Patient was informed and verbally consented to the use of an ambient scribe for clinic note documentation during this visit. Discussion Notes During our discussion, I addressed the patient's concern regarding stool floating, reiterating that it can often be attributed to benign dietary influences and lacks immediate concern absent other symptoms. I reinforced the importance of medication adherence, particularly with Zoloft for anxiety management, and the potential effects of non-compliance. We agreed to implement routine blood tests to gauge her health thoroughly. To address her IBS, I found her current monitoring strategy adequately meeting her needs, given past normal colonoscopy results. We discussed the next steps contingent upon retrieving past medical records regarding her latest colonoscopic examination. Patient Instructions - Restart Zoloft as prescribed to manage anxiety. - Maintain dietary habits unless otherwise specified, as the floating stool is not immediately concerning. - Await further instruction pending review of colonoscopy history. - Complete upcoming blood work as scheduled. - Report any new or worsening symptoms promptly.
[2024-12-29 14:13] VITALS: BP 144/80; PULSE 80; RESP 14; TEMP 36.4; O2SAT 97; BMI 31.6
== END 2024-12-29 14:34 | disposition home or self-care (01) ==
LOC: HO.HMCSH 14:07
PROVIDERS: PCP Internal Medicine; Visit Provider Internal Medicine
DX: F32.A Depression, unspecified (principal)

== ENCOUNTER → 2024-12-29 14:06 | Outpatient (BNVA) | payer MEDICARE, BC, SELFPAY | PROVIDERS: PCP Internal Medicine; Visit Provider Internal Medicine | DX: F32.A Depression, unspecified (principal) | CPT/HCPCS: 96127; 99212 ==

== ENCOUNTER 2024-12-31 09:25 | Outpatient (REF) | payer MEDICARE, BC, SELFPAY ==
[2024-12-31 13:15] LABS: Appearance Urine Cloudy; Color Urine Yellow; Glucose Urine UA Negative (Negative); Leukocyte Esterase Urine Large (3+) (Negative); Nitrite Urine Negative (Negative); Specific Gravity - Urine 1.015 (1.005-1.025); UMIC TRIGGER UA YES; Urine Blood Negative (Negative); Urine Ketones Negative (Negative); Urine Protein Negative (Neg-Trace)
[2024-12-31 13:18] LABS: Hematocrit 38.4 % (37.0-47.0); Hemoglobin 12.6 g/dl (12.0-16.0); Mean Corpuscular HGB Conc 32.8 g/dl (31.0-35.0); Mean Corpuscular Hemoglobin 30.1 pg (27.0-33.0); Mean Corpuscular Volume 91.6 fL (80.0-98.0); Mean Platelet Volume 11.3 fL (9.4-12.3); Platelet Count 223 X10*3/uL (160-400); Red Blood Count 4.19 X10*6/uL (4.20-5.50); Red Cell Distribution Width 12.5 % (11.0-16.0); White Blood Count 5.2 X10*3/uL (4.8-10.8)
[2024-12-31 13:22] LABS: Bacteria Urine None Seen (None Seen); Hyaline Casts Urine 0-2 /LPF (0-2); RBC Urine 0-2 /HPF (0-2); Squamous Epithelial Cell Urine >20 /HPF (0-2); WBC Urine >50 /HPF (0-5)
[2024-12-31 13:42] LABS: Alanine Aminotransferase 16 U/L (0-31); Albumin Level 4.1 g/dL (3.5-5.0); Alkaline Phosphatase 78 U/L (39-117); Anion Gap 9 (12-20); Aspartate Amino Transferase 23 U/L (5-31); Bilirubin Direct 0.2 mg/dL (0.0-0.5); Bilirubin Total 0.6 mg/dL (0.0-1.0); Blood Urea Nitrogen 10 mg/dL (9-16); Calcium 9.3 mg/dL (8.4-10.2); Carbon Dioxide 28 mmol/L (22-29); Chloride 108 mmol/L (96-108); Cholesterol 199 mg/dL (<200); Estimated Glomerular Filt Rate > 60; Glucose Random 110 mg/dL (60-115); HDL Cholesterol 77 mg/dL (>40); LDL Cholesterol Calculated 98 mg/dL (<100); Potassium 3.7 mmol/L (3.3-5.1); Sodium 141 mmol/L (135-145); Total Protein 6.8 g/dL (6.5-8.0); Triglycerides 124 mg/dL (<150)
[2024-12-31 14:02] LABS: Thyroid Stimulating Hormone 0.56 uIU/mL (0.32-4.0)
== END 2024-12-31 09:26 | disposition home or self-care (01) ==
LOC: HO.HMGCLDS 09:25
PROVIDERS: PCP Internal Medicine; Visit Provider Internal Medicine
DX: F32.A Depression, unspecified (principal)
CPT/HCPCS: 36415; 80048; 80061; 80076; 81001; 84443; 85027

== ENCOUNTER 2025-02-05 11:25 | Outpatient (AMB) | payer MEDICARE, BC, SELFPAY ==
[2025-02-05 11:33] VITALS: BP 140/65; PULSE 88; RESP 14; TEMP 36.3; O2SAT 97; BMI 31.2
--- NOTE | 2025-02-05 11:33 | A.OFFPC_ITS ---
Vital Signs 02/05/25 11:33 Height 5 ft 2.8 in Weight 175 lb BMI 31.2 BP 140/65 H Respiration 14 Pulse 88 Pulse Source Pulse Oximeter Temp 97.4 F Temp Source Temporal Artery Scan Pulse Oximetry (%) 97 Oxygen Delivery Method Room Air Intake Visit Reasons: tinnitus Media Monitor Required: No Accompanied by: Self / Same As Patient Allergies sulfamethoxazole [From Bactrim] Allergy (Intermediate, Verified 02/05/25 11:48) Rash trimethoprim [From Bactrim] Allergy (Intermediate, Verified 02/05/25 11:48) Rash morphine [MORPHINE] Allergy (Unknown, Verified 02/05/25 11:48) UNKNOWN Penicillins [PENICILLINS] Allergy (Unknown, Verified 02/05/25 11:48) UNKNOWN Medication List - Last Reconciled 02/05/25 by April Garcia PA-C estradiol (Yuvafem) 10 mcg vaginal TUTH@0900 estradiol 0.01%(0.1mg/gram) (Estrace) 1 appful vaginal DAILY sertraline 150 mg PO DAILY Tobacco use date assessed: 02/05/25 Fall risk assessment: No Falls in past year Last assessed Fall Risk: 02/05/25 Dental Screening Dental Screen Date: 12/29/24 HPI tinnitus HPI Details The patient is a 74-year-old female presenting with difficulty relaxing and tinnitus primarily. The difficulty relaxing issue occurs intermittently, presenting as a struggle without specific triggers noted. The tinnitus developed postoperatively after sinus surgery intended for severe sinusitis secondary to a dental procedure causing sinus blockages. The procedure was conducted in [place], and a follow-up indicated mild ear ringing, not previously distressing. Denied associated neurologic symptoms include dizziness, changes in vision, weakness, or numbness. Nausea, vomiting, and diarrhea were described but patient believes related to anxiety. The patient also experiences anxiety related to these symptoms, discussing potential anxiety treatments to alleviate tinnitus and sleep disruptions. [facility] Medical History (Updated 02/05/25 @ 12:59 by April Garcia PA-C) Elevated blood pressure reading Class 1 obesity with body mass index (BMI) of 31.0 to 31.9 in adult Anxiety History of mammogram (~10/12/24) History of sinusitis Tinnitus Fever of unknown origin Depression Surgical History History of colonoscopy H/O bone graft History of sinus surgery History of nasal surgery History of dental surgery Social History Household Members: Significant Other Housing: House Do you presently have visiting nurse or other home services: No Alcohol intake: current Alcohol intake frequency: holidays/special occasions only Patient Tobacco Use Status: Never used Tobacco e-Cigarette/Vaping Use: Never Used Second Hand Smoke Exposure: No service: No Current occupational status: retired Cognitive needs: No Hearing needs: No Vision needs: Yes (reading Glasses) Questionnaire PHQ-9 Over the last 2 weeks, how often have you been bothered by any of the following problems? 1. Little interest or pleasure in doing things: not at all 2. Feeling down, depressed, or hopeless: several days (currently on medication) 3. Trouble falling or staying asleep, or sleeping too much: not at all 4. Feeling tired or having little energy: not at all 5. Poor appetite or overeating: not at all 6. Feeling bad about yourself - or that you are a failure or have let yourself or your family down: not at all 7. Trouble concentrating on things, such as reading the newspaper or watching television: not at all 8. Moving or speaking so slowly that other people could have noticed. Or the opposite - being so fidgety or restless that you have been moving around a lot more than usual: not at all 9. Thoughts that you would be better off or of hurting yourself in some way: not at all Total score: 1 Depression Screening Interpretation: Negative Depression Screening Done: Yes 80866 - PHQ-9 Billing: Yes Source: Developed by Drs. Zi Roque, Yas Shedlon, Steve Washington and colleagues, with an educational hay from [employer]. Thrive Questionnaire Date Thrive assessed: 12/29/24 I am a: Patient What is your living situation today?: I have a steady place to live Within the past 12 months, did the food you bought not last and you didn't have the money to get more?: Never true Within the past 12 months, did you worry whether your food would run out before you got money to buy more?: Never true Do you have trouble paying for medicines?: No Do you have trouble getting transportation to medical appointments?: No Do you have trouble paying your heating and electricity bill?: No Do you have trouble taking care of your child, family member or friend?: No Do you have trouble with day-to-day activities such as bathing, preparing meals, shopping, managing finances, etc.?: No Are you currently unemployed and looking for a job?: No Are you interested in more education?: No Please select the resources that you would like help with: None Currently or been in a relationship where the following occur: No concerns reported THRIVE Score: 0 AUDIT C Alcohol Use Questionnaire (AUDIT-C) 1. How often do you have a drink containing alcohol?: Monthly or less 2. How many drinks containing alcohol do you have on a typical day when you are drinking?: 1 or 2 3. How often do you have six or more drinks on one occasion?: Never Total Score: 1 Score Reviewed/Action Taken: No SHIMA-7 AMB Questionnaire SHIMA-7 Date SHIMA - 7 assessed: 12/29/24 Feeling nervous, anxious, or on edge: 0 = Not at all Not being able to stop or control worryin = Not at all Worrying too much about different things: 0 = Not at all Trouble relaxin = Not at all Being so restless that it is hard to sit still: 0 = Not at all Becoming easily annoyed or irritable: 0 = Not at all Feeling afraid as if something awful might happen: 0 = Not at all Total SHIMA-7 score (0-4 normal; 5-9 mild; 10-14 moderate; 15-21 severe): 0 Source: Developed by Drs. Zi Roque, Yas Sheldon, Steve Washington and colleagues, with an educational hay from [employer]. SHIMA-7 Assessment Billing SHIMA-7 Assessment Tool: SHIMA-7 Assessment 80166 Review of Systems Const Details: - Neurological: Denies dizziness, changes in vision, weakness, numbness. - Ears: Reports tinnitus. - Gastrointestinal: Reports nausea, vomiting, diarrhea. Physical exam (Primary Care) Vital Signs: Last Vital Signs Temp 97.4 F 02/05/25 11:33 Pulse 88 02/05/25 11:33 Resp 14 02/05/25 11:33 BP 140/65 H 02/05/25 11:33 Pulse Ox 97 02/05/25 11:33 Oxygen Delivery Method Room Air 02/05/25 11:33 Care Plan Goal for BP management: <140/90 at Goal BMI result Body Mass Index 31.2 BMI Assessment/Plan discussion: High BMI High, discussed plan: lifestyle, weight reduction, dietary, physical activity and alcohol moderation Tobacco/Smoking Status: Tobacco use Status Tobacco use date assessed 02/05/25 02/05/25 11:42 Patient Tobacco Use Status Never used Tobacco 02/05/25 11:42 e-Cigarette/Vaping Use Never Used 02/05/25 11:42 PHQ-9: PHQ-9 Score PHQ-9: Total score 1 02/05/25 12:05 Depression Screening Interpretation: Negative Thrive Assessment: Date of Thrive Assessment Date Thrive assessed 12/29/24 02/05/25 11:42 Currently or been in a relationship where the following occur: No concerns reported Const Other: Appearance: Alert. Oriented X3. No acute distress. Head: Normal external exam. Normocephalic. Atraumatic. Eyes: Pupils are equal, round, and reactive to light. Extraocular movements intact. Conjunctiva and sclera normal. Eyelids normal. Ears: External auditory canal normal. Tympanic membranes within normal limits. No cerumen impaction. No mastoid tenderness, erythema, swelling noted. Normal hearing is noted. No foreign bodies, rashes or abnormalities noted. Throat: Pharynx normal. Uvula midline. Moist mucous membranes. No tenderness over the sinuses. Neck: Normal inspection. Neck supple. Full range of motion. Cardiovascular: Normal heart rate and rhythm. Respiratory: No respiratory distress. Painless inspiration. Back: Full range of motion noted. Skin: Skin warm and dry. Normal skin color. Normal skin turgor. No rashes/lesions/lacerations noted. Extremities: Extremities exhibit normal range of motion. Neuro: Oriented X 3. No motor deficit. No sensory deficit. Reflexes normal. Coding Level of Care Code Est Pt Level 4 (23468) Complex EM visit Add On G2211 Diagnoses History of sinusitis Z87.09 Tinnitus H93.19 Anxiety F41.9 Class 1 obesity with body mass index (BMI) of 31.0 to 31.9 in adult E66.811; Z68.31 Elevated blood pressure reading R03.0 Additional Codes SHIMA-7 Assessment Billing - SHIMA-7 Assessment Tool: SHIMA-7 Assessment 51074 ([id number]) PHQ-9 - 78669 - PHQ-9 Billing: Yes ([id number]) Time Spent (min) 50 Assessment & Plan Assessment & Plan (1) History of sinusitis: Code(s): Z87.09 - Personal history of other diseases of the respiratory system Category: Medical Plan: Previous sinus surgery acknowledged for sinusitis reportedly induced by a dental procedure, with no acute intervention during the visit. No congestion noted at this time. No sinus pressure pain. Will continue to monitor for reoccurrence. (2) Tinnitus: Code(s): H93.19 - Tinnitus, unspecified ear Category: Medical Plan: Referral to ENT in [facility] for evaluation, with clonazepam 0.5 mg at bedtime suggested to manage symptoms and induce sleep. Discussed possible addiction and drowsiness as side effects. (3) Anxiety: Code(s): F41.9 - Anxiety disorder, unspecified Category: Medical Plan: Patient to continue sertraline as prescribed will add clonazepam 0.5 mg for bedtime to help with the anxiety, difficulty sleeping in the tinnitus. Condition is chronic and stable continue to monitor. (4) Class 1 obesity with body mass index (BMI) of 31.0 to 31.9 in adult: Code(s): E66.811 - Obesity, class 1; Z68.31 - Body mass index [BMI] 31.0-31.9, adult Category: Medical Plan: Patient to improve diet and exercise regimen. Condition is chronic and stable will continue to monitor (5) Elevated blood pressure reading: Code(s): R03.0 - Elevated blood-pressure reading, without diagnosis of hypertension Category: Medical Plan: Patient to monitor her blood pressure and return with blood pressure log at her next visit to determine if patient has undiagnosed high blood pressure. Plan Plan Patient was informed and verbally consented to the use of an ambient scribe for clinic note documentation during this visit. 1. Anxiety The patient struggles with relaxation, patient currently on sertraline taking as prescribed chronically. 2. Tinnitus Referral to ENT in [facility] for evaluation, with clonazepam 0.5 mg at bedtime suggested to manage symptoms and induce sleep. Discussed possible addiction and drowsiness as side effects. 3. Sinusitis Previous sinus surgery acknowledged for sinusitis reportedly induced by a dental procedure, with no acute intervention during the visit. I discussed with the patient the presence of tinnitus possibly linked to past sinus surgery and hormonal changes. We explored the management options, focusing on an ENT referral in [facility]. There was a conversation about prescribing clonazepam to aid in the management of anxiety and help with sleep due to tinnitus; I informed the patient about the potential addictive nature and side effects such as drowsiness. Follow-up options with ENT in [place] were available if [facility] cannot accommodate an earlier appointment. I emphasized that medication for anxiety might help in reducing symptom perception. Orders: Orders XR DEXA axial skeleton Today M81.0 - Age-related osteoporosis without current pathological fracture Referrals Ear/Nose/Throat Referral H93.19 - Tinnitus, unspecified ear, Z87.09 - Personal history of other diseases of the respiratory system, Z98.890 - Other specified postprocedural states Medications: New loratadine-pseudoephedrine 5-120 mg ER (Claritin-D 12 Hour) 1 tab PO Q12H 30 tabs 0RF clonazepam administer 30 minutes before bedtime 0.5 mg PO BEDTIME 30 tabs 0RF 30 days Patient Instructions: - Contact the ENT in [facility] to schedule an appointment. - Call if you cannot secure an appointment sooner, and we will arrange for a [place] referral. - Consider taking clonazepam as prescribed to help with tinnitus and improve sleep. - Seek care sooner if you experience any new or worsening symptoms, such as weakness, sudden vision changes, or increased nausea and vomiting. - Follow up with any recommended ENT evaluations and adhere to any given management plans.
--- OUTSIDE RECORDS SUMMARY | 2025-02-05 12:19 | XMS_ITS ---
Author Name [facility] Organization Unknown Encounters Encounter Type Encounter Reason Primary Diagnosis Location Date Ambulatory [facility] 07/07/2024 Care Team Organization Name Specialty Phone Email Start Date End Da te [facility] 2024
== END 2025-02-05 12:15 | disposition home or self-care (01) ==
LOC: HO.HMCSH 11:25
PROVIDERS: PCP Internal Medicine; Visit Provider Physician Assistant Medical
DX: Z87.09 Personal history of other diseases of the respiratory system (principal); H93.19 Tinnitus, unspecified ear; F41.9 Anxiety disorder, unspecified; E66.811 Obesity, class 1; Z68.31 Body mass index [BMI] 31.0-31.9, adult; R03.0 Elevated blood-pressure reading, without diagnosis of hypertension

== ENCOUNTER → 2025-02-05 11:25 | Outpatient (BNVA) | payer MEDICARE, BC, SELFPAY | PROVIDERS: PCP Internal Medicine; Visit Provider Physician Assistant Medical | DX: H93.19 Tinnitus, unspecified ear (principal); F41.9 Anxiety disorder, unspecified; E66.811 Obesity, class 1; Z68.31 Body mass index [BMI] 31.0-31.9, adult; R03.0 Elevated blood-pressure reading, without diagnosis of hypertension; Z87.09 Personal history of other diseases of the respiratory system | CPT/HCPCS: 96127; 99212 ==

== ENCOUNTER 2025-03-17 08:30 | Outpatient (REF) | payer MEDICARE, BC, SELFPAY ==
--- NOTE | ~2025-03-17 | MM_ITS ---
EXAMINATION: DXA BONE DENSITY AXIAL HISTORY: M81.0 - Age-related osteoporosis without current pathological fracture TECHNIQUE: [employer] Dual energy absorptiometry (DEXA) of the lumbar spine, total left hip, and femoral neck was performed. COMPARISON: There are no prior studies for comparison. FINDINGS: The bone mineral density of the lumbar spine is 1.300 g/cm2, corresponding to a T-score of 1.0, and a Z-score of 2.3. This is indicative of normal bone mineral density. The bone mineral density of the left total hip is 0.921 g/cm2, corresponding to a T-score of -0.7, and a Z-score of 0.6. This is indicative of normal bone mineral density. The bone mineral density of the left femoral neck is 0.861 g/cm2, corresponding to a T-score of -1.3, and a Z-score of 0.3. This is indicative of osteopenia. FRACTURE RISK: The FRAX index suggests a risk of major osteoporotic fracture of 9.7%, and of hip fracture 1.4%. MM/XR DEXA axial skeleton IMPRESSION: Based on bone mineral density, and according to World Health Organization (WHO) criteria, the diagnosis is consistent with osteopenia. Statistically, 68% of repeat scans fall within 1 SD (+/- 0.010 g/cm2 for AP spine L1-L4) and 1 SD (+/- 0.012 g/cm2 for femur total) FRAX is a trademark of the [employer], a World Health Organization (WHO) Collaborating Center. Electronically signed by: Zi Kenny MD 03/17/2025 09:06 AM EDT
--- OUTSIDE RECORDS SUMMARY | 2025-03-17 08:44 | XMS_ITS | Clinical Summary ---
Author Organization [facility] Address [address] [place] [address] Care Team Providers Care Model And Pattern Supervisor Name Role Phone Wilian Bergeron Primary Care Provider Encounters Date Type Department Care Team Description 02/11/2025 2:00 PM EDT Procedure visit [facility] [address] [place] [id number] Nancy Hansen, AUD, CCC-A Subjective tinnitus of both ears (Primary Dx); Sensorineural hearing loss (SNHL) of both ears from Last 3 Months Social History Tobacco Use Types Packs/Day Years Used Date Smoking Tobacco: Never Assessed Comments Unknown Sex and Gender Information Value Date Recorded Sex Assigned at Female 02/05/2025 2:10 PM EDT Legal Sex Female 2:07 PM EDT Gender Identity Female 02/05/2025 2:10 PM EDT Sexual Orientation Not on file Plan of Treatment Health Maintenance Due Date Last Done Comments Cologuard 1952 Colon Cancer Screening 1950 Colonoscopy 1952 FOBT / Fit Test 1952 Hepatitis C Screening 1952 Sigmoidoscopy 1952 DTaP,Tdap,and Td Vaccines (1 - Tdap) 1974 Mammogram 1992 Osteoporosis Screening 2002 Pneumococcal Vaccine: 50+ Years (1 of 1 - PCV) 2002 Zoster Vaccines (1 of 2) 2002 COVID-19 Vaccine ( season) 2024 06/13/2023, 04/29/2022, 07/05/2021, Additional history exists Alcohol/Substance Use Screening 09/09/2024 Depression Screening and Follow-Up 09/09/2024 Health Care Proxy Review 09/09/2024 Social Drivers of Health Annual Screening 09/09/2024 Influenza Vaccine (#1) 2025 07/05/2021 RSV Vaccine (60+ years old and patients) (1 - 1-dose 75+ series) 11/19/2027 Hepatitis B Vaccines Aged Out No long er eligible based on patient's age to complete this topic Insurance [facility] [employer] Member Subscriber Plan / Payer (Ef fective 2024-Present) Name:Julia Hall Relation to Subscriber:Spouse Name:REBECCA HALL Date of :1953 (Home) Address: [address] [place] [id number] Payer ID:[id number] (NAIC) Group ID:[id number] Type:Not on file Address: [address] [place] [address] MEDICARE Care Teams Model And Pattern Supervisor Relationship Specialty Start Date End Date Wilian Bergeron [address] [place] [address] PCP - General Internal Medicine 02/05/25
== END 2025-03-17 08:31 | disposition home or self-care (01) ==
LOC: HO.MAMMO 08:30
PROVIDERS: PCP Internal Medicine; Visit Provider Physician Assistant Medical
DX: M81.0 Age-related osteoporosis without current pathological fracture (principal)
CPT/HCPCS: 77080

== ENCOUNTER → 2025-03-17 08:45 | Outpatient (BNV) | payer MEDICARE, BC, SELFPAY | PROVIDERS: PCP Internal Medicine; Visit Provider Radiology Diagnostic Radiology | DX: E28.39 Other primary ovarian failure (principal) | CPT/HCPCS: 77080 ==

== ENCOUNTER 2025-04-21 09:40 | Outpatient (REF) | payer MEDICARE, BC, SELFPAY ==
--- OUTSIDE RECORDS SUMMARY | 2025-04-20 06:30 | XMS_ITS ---
Author Organization [facility] Address [address] [place] [address] Care Team Providers Care Hospital Educator Name Role Phone KRISTOPHER BETANCOURT Primary Care Provider Zi Lehman [phone] Allergies Allergen (clinical drug ingredient) Drug/Non Drug Allergy documented on EMR Reaction Allergy Type Onset Date Status Penicillin Unknown Drug Allergy Active Substance with sulfonamide structure and antibacterial mechanism of action (substance) Sulfa Antibiotics severe Drug Allergy Active REASON FOR VISIT Patient presents today for ABNORMAL BM'S Medications Medication SIG (Take, Route, Frequency, Duration) Notes Start Date End Date Status Vitamin D Active Zoloft Active Estrace Active Social History Tobacco Use: Social History Observation Description Date Details (start date - stop date) Never Smoker NA - NA Tobacco Control (Standard) Question Answer Notes Tobacco use: Nonsmoker AUDIT-C (Standard) Question Answer Notes Did you have a drink contain ing alcohol in the past year? Yes How often did you have a dri nk containing alcohol in the past year? Monthly or less (1 point) How many drinks did you have on a typical day when you were drinking in the past year? 1 or 2 drinks (0 point) How often did you have six o r more drinks on one occasion in the past year? Never (0 point) Points 1 Interpretation Negative Problems Problem Type SNOMED Code ICD Code Onset Dates Problem Status W/U Status Risk Notes Problem Change in bowel habit (49984101) Change in bowel habits (R19.4) Active confirmed Problem Colon cancer screening (520353728) Colon cancer screening (Z12.11) Active confirmed Problem Generalized abdominal pain (730456478) Abdominal discomfort, generalized (R10.84) Active confirmed Vital Signs Blood pressure systolic 111 mm Hg 08/12/20 25 Blood pressure diastolic 77 mm Hg 025 Height 63 in 04/20/2025 Weight 175 lbs 04/20/2025 BMI 31 kg/m2 04/20/2025 Procedures Procedure Date Ordered Date Performed Result Body Sit e COLONOSCOPY 04/20/2025 N/A Encounters Encounter Location Date Provider Diagnosis [facility] [address] [place] [address] 04/20/2025 Zi Lange Change in bowel habi ts R19.4 ; Colon cancer screening Z12.11 and Abdominal discomfort, generalized R10.84 Assessments Encounter Date Diagnosis (ICD Code) Assessment Notes Treatment Notes Treatment Clinical Notes Section Notes 04/20/2025 Change in bowel habits (ICD-10 - R19.4) Overall, Verenice appears quite well. We did review her main concern of her floating stools . We reviewed that this most likely does not represent any significant pathology given her excellent clinical appearance and no other associated problems such as weight loss, abdominal pain to speak of, jaundice, or anorexia. However, she is concerned about the symptoms and did ask about things such as pancreatic cancer and other pancreatic issues. I advised her that I do not think that is the case but have agreed to order a CT scan of the abdomen and pancreas for her. I advised her that I do think that will be negative. I shall also order laboratories in the meantime including a celiac disease profile, LFTs, and pancreatic enzymes. I did recommend a colonoscopy as by the time we do that it will be almost 9 years since her last exam and she has had this slight change in her bowel habits. We did review the rationale for this in regard to colorectal cancer prevention and/or early detection. Full consent has been obtained from her for this, including risks of bleeding and perforation. The procedure will be done with monitored anesthesia care. Verenice was very comfortable with this plan. Thank you again for allowing me to participate in Verenice's care. I shall continue to keep you advised of her progress. 04/20/2025 Colon cancer screening (ICD-10 - Z12.11) Overall, Verenice appears quite well. We did review her main concern of her floating stools . We reviewed that this most likely does not represent any significant pathology given her excellent clinical appearance and no other associated problems such as weight loss, abdominal pain to speak of, jaundice, or anorexia. However, she is concerned about the symptoms and did ask about things such as pancreatic cancer and other pancreatic issues. I advised her that I do not think that is the case but have agreed to order a CT scan of the abdomen and pancreas for her. I advised her that I do think that will be negative. I shall also order laboratories in the meantime including a celiac disease profile, LFTs, and pancreatic enzymes. I did recommend a colonoscopy as by the time we do that it will be almost 9 years since her last exam and she has had this slight change in her bowel habits. We did review the rationale for this in regard to colorectal cancer prevention and/or early detection. Full consent has been obtained from her for this, including risks of bleeding and perforation. The procedure will be done with monitored anesthesia care. Verenice was very comfortable with this plan. Thank you again for allowing me to participate in Verenice's care. I shall continue to keep you advised of her progress. 04/20/2025 Abdominal discomfort, generalized (ICD-10 - R10.84) Overall, Verenice appears quite well. We did review her main concern of her floating stools . We reviewed that this most likely does not represent any significant pathology given her excellent clinical appearance and no other associated problems such as weight loss, abdominal pain to speak of, jaundice, or anorexia. However, she is concerned about the symptoms and did ask about things such as pancreatic cancer and other pancreatic issues. I advised her that I do not think that is the case but have agreed to order a CT scan of the abdomen and pancreas for her. I advised her that I do think that will be negative. I shall also order laboratories in the meantime including a celiac disease profile, LFTs, and pancreatic enzymes. I did recommend a colonoscopy as by the time we do that it will be almost 9 years since her last exam and she has had this slight change in her bowel habits. We did review the rationale for this in regard to colorectal cancer prevention and/or early detection. Full consent has been obtained from her for this, including risks of bleeding and perforation. The procedure will be done with monitored anesthesia care. Verenice was very comfortable with this plan. Thank you again for allowing me to participate in Verenice's care. I shall continue to keep you advised of her progress. Plan Of Treatment Pending Test Test Name Order Date COLONOSCOPY 04/20/2025 BUN 04/20/2025 LIVER PROFILE 04/20/2025 CBC w DIFF 04/20/2025 CELIAC PANEL #10 04/20/2025 CT ABD & PELVIS WITH CONTRAST 04/20/2025 Creatinine 04/20/2025 Amylase 04/20/2025 Lipase 04/20/2025 Next Appt Details Provider Name:Zi Lange , 07/14/2025 11:30:00 AM, [address] [place] [address], [id number], Progress Notes * VERENICE MALIKDOB:1950 ( 74 yo F)Acc No.[id number]:04/20/2025 Progress Notes Patient: VERENICE JUDD Provider: Tori Lange MD :1950 A ge:74 Y S ex:Female Date:04/20/2025 Address:[address] [place], [place] [id number] Pcp:KRISTOPHER BETANCOURT Subjective: * Chief Complaints: * 1 . Patient presents today for ABNORMAL BM'S. * HPI: i ncontinence: I saw Verenice in consultation today in regard to further evaluation of her change in bowel habits with intermittent floating stools , some occasional right sided abdominal discomfort, and discussion of colorectal cancer screening. As you know, Verenice is a healthy 74-year-old female who generally feels well. She does describe some history of irritable bowel syndrome with occasional diarrhea, but in general her bowel movements are not particularly problematic. She has had 3 previous colonoscopies which have been negative, with her most recent one in [place] [address] Jimy Lemons. Her family history is negative for any colon cancer although her father did have colon polyps. She enjoys a good appetite and denies any significant heartburn or dysphagia. She has not noticed any signs of jaundice nor unintentional weight loss. She does describe a history of floating stools for about 3 to 4 months although most recently that has resolved. During the time of the floating stools she did not think they looked particularly greasy or oily and were not particularly malodorous. She denies any known family history of pancreatic disease such as pancreatic cancer or pancreatitis. She does not have any history of pancreatitis in herself. Again, during this time she has not noticed any weight loss or jaundice. She does have occasional right sided abdominal discomfort but this is not daily and not associated with any other symptoms such as fevers, urinary symptoms, or jaundice. She has had a previous cholecystectomy. She did have an abdominal ultrasound in October that describes a normal- appearing pancreas and common bile duct. Laboratories in December revealed a normal CBC, normal chemistries and renal function, normal LFTs, and normal TSH. * Medical History: D enies FL,DM,CVA,Lung disease,renal disease, Depression/Anxiety, IBS, 3 negative colonoscopies in [place] with her most recent one in October 2016 by . * Surgical History: C esarean section x 6 , Hernia repair x 3 , CCY , Appendectomy , Oopherectomy bilateral . * Family History: F ather: 71 yrs, lung cancer, diagnosed with HTN (hypertension). M other: 98 yrs. S iblings: alive, brother heart ds, diagnosed with Heart disease. No colon cancer. * Social History: T obacco Use: T obacco Control (Standard) T obacco use: N onsmoker. M iscellaneous: M arital status: . 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 D rug/Alcohol: A FIORELLA-C (Standard) D id you have a drink containing alcohol in the past year? Y es,?How often did you have a drink containing alcohol in the past year? M onthly or less (1 point), H ow many drinks did you have on a typical day when you were drinking in the past year? 1 or 2 drinks (0 point), H ow often did you have six or more drinks on one occasion in the past year? N ever (0 point), P oints 1 , I nterpretation N egative. * Medications: T aking Vitamin D , Taking Estrace , Taking Zoloft , Medication List reviewed and reconciled with the patient * Allergies: S ulfa Antibiotics: severe, Penicillin. Objective: * Vitals: W t:175lbs, Ht:63in, BMI: 31 Index, BP:111/77mm Hg, Ht-cm: 160.02, Wt-k.38. Assessment: * Assessment: 1. C hange in bowel habits - R19.4 (Primary) 2 . C olon cancer screening - Z12.11 3 . A bdominal discomfort, generalized - R10.84 Overall, Verenice appears quite well. We did review her main concern of her floating stools . We reviewed that this most likely does not represent any significant pathology given her excellent clinical appearance and no other associated problems such as weight loss, abdominal pain to speak of, jaundice, or anorexia. However, she is concerned about the symptoms and did ask about things such as pancreatic cancer and other pancreatic issues. I advised her that I do not think that is the case but have agreed to order a CT scan of the abdomen and pancreas for her. I advised her that I do think that will be negative. I shall also order laboratories in the meantime including a celiac disease profile, LFTs, and pancreatic enzymes. I did recommend a colonoscopy as by the time we do that it will be almost 9 years since her last exam and she has had this slight change in her bowel habits. We did review the rationale for this in regard to colorectal cancer prevention and/or early detection. Full consent has been obtained from her for this, including risks of bleeding and perforation. The procedure will be done with monitored anesthesia care. Verenice was very comfortable with this plan. Thank you again for allowing me to participate in Verenice's care. I shall continue to keep you advised of her progress. Plan: * Treatment: * ?Procedure: COLONOSCOPY* with MACsched for 07/14/25 at 11:30 ammiralax 2.?Colon cancer screening?Procedure: COLONOSCOPY* with MACsched for 07/14/25 at 11:30 ammiralax 3.?Abdominal discomfort, generalized?LAB: BUN ?LAB: LIVER PROFILE ?LAB: CBC w DIFF ?LAB: CELIAC PANEL #10 ?LAB: Creatinine ?LAB: Amylase ?LAB: Lipase ?Imaging: CT ABD & PELVIS WITH CONTRAST* Teresa Murphy 04/20/2025 11: 36:10 AM EDT > order faxed for booking, pt given lab slip * * Procedure Codes: 4 5378 DIAGNOSTIC COLONOSCOPY * Preventive Medicine: Counseling: C are goal follow-up plan: A román Normal BMI Follow-up G iving encouragement to exercise, B FL management provided Y es. Urinary Incontinence: U rinary Incontinence A ssessment: A bsent, P grant of care documented: N o, reason not specified. Screenings: F all Risk Screening F all Risk Assessment: N o falls in the past year, S creening: N o falls in the past year, A ssessment: N ot performed, no reason specified, P grant of Care: N ot documented, no reason specified. * * The named appointment provid er may or may not be the originator of this progress note, and it is not deemed complete until electronically signed by the appointment provider. Sign off status: Pending * Provider: Tori Lange MD Date: 04/20/2025 Generated for Bob mejia/Ember/Carolineitting on: 04/21/2025 10:08 AM EDT
--- OUTSIDE RECORDS SUMMARY | 2025-04-21 10:09 | XMS_ITS ---
Author Name [facility] Organization Unknown Encounters Encounter Type Encounter Reason Primary Diagnosis Location Date Ambulatory [facility] 07/07/2024 Care Team Organization Name Specialty Phone Email Start Date End Da te [facility] 2024 [facility] 03/26/2024 [facility] Primary [facility] 07/17/2022
--- OUTSIDE RECORDS SUMMARY | 2025-04-21 10:09 | XMS_ITS | Clinical Summary ---
Author Organization [facility] Address [address] [place] [address] Phone Care Team Providers Care Spice Cleaner Name Role Phone Jens Solano MD Primary Care Provider + Allergies Active Allergy Reactions Criticality Noted Date Comments Penicillin 08/13/2024 Pt unsure of reaction Sulfa (Sulfonamide Antibiotics) High 08/13/2024 Vomiting blood, high fever, full body rash, required hospitalization Medications YUVAFEM [address] 1 tablet vaginally 2 (two) times a week. 4 Active estradioL (ESTRACE) 0.01 % (0.1 mg/gram) vaginal cream Place 2 g vaginally 3 (three) times a week on Saturday, Saturday, Saturday. Active acetaminophen (TYLENOL) 325 mg tablet Take 2 tablets (650 mg total) by mouth every 4 (four) hours as needed. 4 Active clindamycin (CLEOCIN) 150 MG capsule Take 1 capsule (150 mg total) by mouth 3 (three) times a day. 30 capsule 4 Active methylPREDNISol one (MEDROL DOSEPACK) 4 mg tablet follow package directions 21 tablet 4 Active Encounters Date Type Department Care Team Description 04/20/2025 Orders Only [facility] [address] [place] [address] Delores Juárez Tinnitus, unspecified laterality (Primary Dx) from Last 3 Months Family History Medical History Relation Comments Allergies Son Relation Status Comments Son Alive Social History Tobacco Use Types Packs/Day Years Used Date Smoking Tobacco: Never Smokeless Tobacco: Never Tobacco Cessation:Counseling Given: Not Answered Alcohol Use Standard Drinks/Week Comments Yes 1 [...] on file Sexual Orientation Not on file Last Filed Vital Signs Vital Sign Reading Time Taken Comments Blood Pressure 120/55 09/07/2024 12:00 PM EST Pulse 80 09/07/2024 11:30 AM EST Temperature 36.2 C (97.1 F) 09/07/2024 11:45 AM EST Respiratory Rate 15 09/07/2024 7:53 AM EST Oxygen Saturation 96% 09/07/2024 12:00 PM EST Inhaled Oxygen Concentration - - Weight 77.1 kg (170 lb) 09/07/2024 7:53 AM EST Height 160 cm (5' 3 ) 09/07/2024 7:53 AM EST Body Mass Index 30.11 09/07/2024 7:53 AM EST Plan of Treatment Upcoming Encounters Date Type Department Care Team (Late st Contact Info) Description 04/30/2025 8:00 AM EDT Evaluation [facility] [place] [address] Kasi Ferraro [address] [place] [address] [email or web address] Health Maintenance Due Date Last Done Comments Adult Td,Tdap Booster 1950 LIPID PANEL 1950 DEPRESSION SCREENING 1964 HEPATITIS C SCREENING 1970 MAMMOGRAM 1992 COLOGUARD 1997 COLONOSCOPY 1997 COLORECTAL CANCER SCREENING 1997 FIT TEST 1997 FOBT 1997 SIGMOIDOSCOPY 1997 VIRTUAL COLONOSCOPY 1997 PNEUMOCOCCAL VACCINES (50+ years) (1 of 1 - PCV) 2002 ZOSTER VACCINES (1 of 2) 2002 OSTEOPOROSIS SCREENING INITIAL (ONE-TIME) 2017 COVID-19 VACCINE ( season) 2024 06/13/2023, 04/29/2022, 07/05/2021, Additional history exists RSV VACCINE (1 - 1-dose 75+ series) 11/19/2027 SMOKING STATUS SCREENING (Once After 26 Yrs) Completed 09/24/2024 HEPATITIS A VACCINES Aged Out No long er eligible based on patient's age to complete this topic HIB VACCINES Aged Out No longer eligi ble based on patient's age to complete this topic MENINGOCOCCAL VACCINES (ACWY) Aged Out No longer eligible based on patient's age to complete this topic MENINGOCOCCAL VACCINES (B) Aged Out N o longer eligible based on patient's age to complete this topic Medical Devices Implanted Type Area Environmental Services Specialist Device Identifier Shelf Expiration Date Model / Serial / Lot Mesh Abdomen Description:Hernia repair Insurance MEDICARE PART A & B [facility] Member Subscriber Plan / Payer (Ef fective 2000-Present) Name:Julia Malik Relation to Subscriber:Spouse Name:REBECCA MALIK Date of :1951 (Home) Address: [address] [place] [address] Payer ID:[id number] (NAIC) Group ID:[id number] Type:PPO Address: [place] [address] MEDICARE PART A & B [facility] Member Subscriber Plan / Payer ( fective 2000-Present) Name:Julia Malik Relation to Subscriber:Spouse Name:REBECCA MALIK Date of :1951 (Home) Address: [address] [place] [address] Payer ID:[id number] (NAIC) Group ID:[id number] Type:PPO Address: [id number] [place] [address] MEDICARE PART A & B [facility] Member Subscriber Plan / Payer ( fective 2000-Present) Name:Julia Malik Relation to Subscriber:Spouse Name:REBECCA MALIK Date of :1951 (Home) Address: [address] [place] [address] Payer ID:[id number] (NAIC) Group ID:[id number] Type:PPO Address: [facility] [id number] [place] [address] MEDICARE PART A & B [facility] Member Subscriber Plan / Payer ( fective 2000-Present) Name:Julia Malik Relation to Subscriber:Spouse Name:GRACIELAREBECCA SWANSON Date of :1951 (Home) Address: [address] [place] [address] Payer ID:[id number] (NAIC) Group ID:[id number] Type:PPO Address: [address] [place] [address] MEDICARE PART A & B [facility] Member Subscriber Plan / Payer (Ef fective 2000-Present) Name:Julia Malik Relation to Subscriber:Spouse Name:REBECCA MALIK Date of :1951 (Home) Address: [address] [place] [address] Payer ID:[id number] (NAIC) Group ID:[id number] Type:PPO Address: [address] [place] [address] MEDICARE PART A & B [facility] Member Subscriber Plan / Payer ( fective 2000-Present) Name:Julia Malik Relation to Subscriber:Spouse Name:REBECCA MALIK Date of :1951 (Home) Address: [address] [place] [address] Payer ID:[id number] (NAIC) Group ID:[id number] Type:PPO Address: [place] [address] MEDICARE PART A & B [facility] Member Subscriber Plan / Payer ( fective 2000-Present) Name:Julia Malik Relation to Subscriber:Spouse Name:REBECCA MALIK Date of :1951 (Home) Address: [address] [place] [address] Payer ID:[id number] (NAIC) Group ID:[id number] Type:PPO Address: [address] [place] [address] MEDICARE PART A & B [facility] Member Subscriber Plan / Payer (Ef fective 2000-Present) Name:Julia Malik Relation to Subscriber:Spouse Name:REBECCA MALIK Date of :1951 (Home) Address: [address] [place] [address] Payer ID:[id number] (NAIC) Group ID:[id number] Type:PPO Address: [facility] [id number] [place] [address] MEDICARE PART A & B [facility] Member Subscriber Plan / Payer (Ef fective 2000-Present) Name:Julia Malik Relation to Subscriber:Spouse Name:REBECCA MALIK Date of :1951 (Home) Address: [address] [place] [address] Payer ID:[id number] (NAIC) Group ID:[id number] Type:PPO Address: [facility] [address] [place] [address] Advance Directives For more information, please contact: [phone] (9AM - 5PM [facility], Saturday-Saturday) Documents on File Type Date Recorded Patient [employer] Healthcare Proxy 09/14/2024 3:49 PM Care Teams Spice Cleaner Relationship Specialty Start Date End Date Jens Solano MD PCP - General Internal Medicine 01/07/19 Additional Source Comments The information contained in this document represents components of the legal health record. It is not the complete legal health record.[facility]
--- OUTSIDE RECORDS SUMMARY | 2025-04-21 10:09 | XMS_ITS | Clinical Summary ---
Author Organization [facility] Address [address] [place] [address] Care Team Providers Care Program Director/Music Director Name Role Phone Wilian Bergeron Primary Care Provider [phone] Encounters Date Type Department Care Team Description 02/11/2025 2:00 PM EDT Procedure visit [facility] [address] [place] [address] Nancy Hansen, AUD, CCC-A Subjective tinnitus [...] patient's age to complete this topic Insurance [facility] [employer] Member Subscriber Plan / Payer (Ef fective 2024-Present) Name:Julia Hall Relation to Subscriber:Spouse Name:REBECCA HALL Date of :1951 (Home) Address: [address] [place] [address] Payer ID:[id number] (NAIC) Group ID:[id number] Type:Not on file Address: [address] [place] [address] MEDICARE Care Teams Program Director/Music Director Relationship Specialty Start Date End Date Wilian Bergeron [address] [place] [address] PCP - General Internal Medicine 02/05/25
[2025-04-21 13:38] LABS: MANUAL DIFF FLAG NO
[2025-04-21 13:42] LABS: Hematocrit 38.8 % (37.0-47.0); Hemoglobin 12.7 g/dl (12.0-16.0); Imm Gran Abs Auto 0.01 X10*3/uL (0.00-0.03); Imm Gran Pct Auto 0.2 % (0.0-0.4); Lymphocytes Absolute Auto 1.6 X10*3/uL (1.2-4.9); Mean Corpuscular HGB Conc 32.7 g/dl (31.0-35.0); Mean Corpuscular Hemoglobin 30.5 pg (27.0-33.0); Mean Corpuscular Volume 93.0 fL (80.0-98.0); NRBC Abs Auto 0.000 X10*3/uL (0.0-0.012); NRBC Pct Auto 0.0 /100WBC (0.0-0.2); Platelet Count 218 X10*3/uL (160-400); Red Blood Count 4.17 X10*6/uL (4.20-5.50); White Blood Count 4.7 X10*3/uL (4.8-10.8)
[2025-04-21 13:56] LABS: Alanine Aminotransferase 18 U/L (0-31); Albumin Level 4.5 g/dL (3.5-5.0); Alkaline Phosphatase 77 U/L (39-117); Amylase 40 U/L (28-100); Aspartate Amino Transferase 23 U/L (5-31); Blood Urea Nitrogen 16 mg/dL (9-16); Estimated Glomerular Filt Rate > 60; Lipase 36 U/L (8-78); Total Protein 7.0 g/dL (6.5-8.0)
[2025-04-22 06:58] LABS: Immunoglobulin A 322 mg/dL (70-320)
[2025-04-22 22:08] LABS: Transglutaminase Ab IgG <1.0 U/mL
== END 2025-04-21 09:41 | disposition home or self-care (01) ==
LOC: HO.HMGCLDS 09:40
PROVIDERS: PCP Internal Medicine; Visit Provider Internal Medicine
DX: Z01.84 Encounter for antibody response examination (principal); R19.4 Change in bowel habit; R10.84 Generalized abdominal pain
CPT/HCPCS: 36415; 80076; 82150; 82565; 82784; 83690; 84520; 85025; 86231; 86258; 86364

== ENCOUNTER 2025-05-04 09:15 | Outpatient (AMB) | payer MEDICARE, BC, SELFPAY ==
--- OUTSIDE RECORDS SUMMARY | 2024-06-17 | XMS_ITS | Encounter Summary ---
Author Organization [facility] Address [address] [facility] [place] [place] [address] [place] [address] Phone Care Team Providers Care District Or District Office Director Name Role Phone Jens Solano MD Primary Care Provider + Encounter Details Date Type Department Care Team (Late st Contact Info) Description 06/17/2024 Hospital Encounter [facility] [address] [place] [address] Bipin Coburn MD, MS [address] [place] [address] [email or web address] Social History Tobacco Use Types [...] Care Team (Late st Contact Info) Description 05/22/2025 5:00 PM EDT Evaluation [facility] [address] [address] Maxwell Harkins [address] [place] [phone] Yanira@[email or web address] 06/09/2025 4:00 PM EDT Evaluation [facility] [address] [address] Maxwell Harkins [address] [place] [phone] Yanira@[email or web address] 06/24/2025 9:00 AM EDT Evaluation [facility] [address] [address] Kasi Ferraro AuD [address] [place] [phone] [email or web address] 08/04/2025 4:30 PM EST Evaluation [facility] [address] [address] Maxwell Harkins [address] [place] [phone] Yanira@[facility] documented as of this encounter Procedures [...] on filedocumented in this encounter Care Teams District Or District Office Director Relationship Specialty Start Date End Date Jens Solano MD PCP - General Internal Medicine 01/07/19 documented as of this encounter Additional Source Comments The information contained in this document represents components of the legal health record. It is not the complete legal health record.[facility]
--- OUTSIDE RECORDS SUMMARY | 2024-06-17 00:05 | XMS_ITS | Encounter Summary ---
Author Organization [facility] Address [address] [place] [address] Phone Care Team Providers Care Msws Name Role Phone Jens Solano MD Primary Care Provider + Encounter Details Date Type Department Care Team (Late st Contact Info) Description 06/17/2024 12:05 AM EDT Hospital Encounter [facility] [address] [place] [address] Bipin Coburn MD, MS [address] [place] [address] Carrie@[email or web address] Social History Tobacco Use Types Packs/Day Years [...] Upcoming Encounters Date Type Department Care Team ([facility] st Contact Info) Description 05/22/2025 5:00 PM EDT Evaluation [facility] at [address] [address] Maxwell Harkins [address] [place] [phone] Yanira@[email or web address] 06/09/2025 4:00 PM EDT Evaluation [facility] at [address] [address] Maxwell Harkins [address] [place] [phone] Yanira@[email or web address] 06/24/2025 9:00 AM EDT Evaluation [facility] at [address] [address] Kasi Ferraro AuD [address] [place] [phone] Rashaun@[facility] 08/04/2025 4:30 PM EST Evaluation [facility] at [address] [address] Maxwell Harkins [address] [place] [phone] Yanira@[email or web address] documented as of this encounter Procedures [...] on filedocumented in this encounter Care Teams Msws Relationship Specialty Start Date End Date Jens Solano MD PCP - General Internal Medicine 01/07/19 documented as of this encounter Additional Source Comments The information contained in this document represents components of the legal health record. It is not the complete legal health record.[facility]
--- OUTSIDE RECORDS SUMMARY | 2025-04-30 08:00 | XMS_ITS | Encounter Summary ---
Author Organization [facility] Address [address] [facility] [address] [place] [address] Phone Care Team Providers Care Shop Teacher Name Role Phone Jens Solano MD Primary Care Provider + Reason for Visit * Reason Comments Tinnitus Encounter Details Date Type Department Care Team ([facility] st Contact Info) Description 04/30/2025 8:00 AM EDT Evaluation [facility] at [facility] [address] [facility] [address] [place] [address] Kasi Ferraro AuD [address] [place] [address] [email or web address] Maxwell Harkins [address] [place] [address] [email or web address] Tinnitus of both ears (Primary Dx); Sensorineural hearing loss (SNHL) of both ears Social History Tobacco Use Types Packs/Day Years [...] Upcoming Encounters Date Type Department Care Team ([facility] st Contact Info) Description 05/22/2025 5:00 PM EDT Evaluation [facility] at [address] [address] Maxwell Harkins [address] [place] [address] [email or web address] 06/09/2025 4:00 PM EDT Evaluation [facility] at [address] [address] Maxwell Harkins [address] [place] [address] [email or web address] 06/24/2025 9:00 AM EDT Evaluation [facility] at [address] [address] Kasi Ferraro AuD [address] [place] [address] [email or web address] 08/04/2025 4:30 PM EST Evaluation [facility] at [address] [address] Maxwell Harkins Carlos [address] [place] [address] [email or web address] Scheduled Orders Name Type Priority Associated Diagnoses Orde r Schedule Hearing Test Audiology Routine Tinnitus, unspecified laterality Ordered: 04/20/2025 documented as of this encounter Visit Diagnoses Diagnosis Tinnitus of both ears- Primary Unspecified tinnitus Sensorineural hearing loss (SNHL) of both ears documented in this encounter Care Teams Shop Teacher Relationship Specialty Start Date End Date Jens Solano MD PCP - General Internal Medicine 01/07/19 documented as of this encounter Additional Source Comments The information contained in this document represents components of the legal health record. It is not the complete legal health record.[facility]
--- NOTE | 2025-05-04 09:29 | MHC.PC.OV ---
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 Accompanied by: Self / Same As Patient Allergies sulfamethoxazole (From Bactrim) Allergy (Intermediate, Verified 05/04/25 09:30) Rash trimethoprim (From Bactrim) Allergy (Intermediate, Verified 05/04/25 09:30) Rash morphine (MORPHINE) Allergy (Unknown, Verified 05/04/25 09:30) UNKNOWN Penicillins (PENICILLINS) Allergy (Unknown, Verified 05/04/25 09:30) UNKNOWN Tobacco use date assessed: 05/04/25 Dental Screening Dental Screen Date: 12/29/24 [facility] Medical History Elevated blood pressure reading Class 1 obesity with body mass index (BMI) of 31.0 to 31.9 in adult Anxiety History of mammogram (~10/12/24) History of sinusitis Tinnitus Fever of unknown origin Depression Surgical History History of colonoscopy H/O bone graft History of sinus surgery History of nasal surgery History of dental surgery Social History Household Members: Significant Other Housing: House Do you presently have visiting nurse or other home services: No Alcohol intake: current Alcohol intake frequency: holidays/special occasions only Patient Tobacco Use Status: Never used Tobacco e-Cigarette/Vaping Use: Never Used Second Hand Smoke Exposure: No service: No Current occupational status: retired Cognitive needs: No Hearing needs: No Vision needs: Yes (reading Glasses) Questionnaire PHQ-9 Over the last 2 weeks, how often have you been bothered by any of the following problems? 1. Little interest or pleasure in doing things: not at all 2. Feeling down, depressed, or hopeless: several days (currently on medication) 3. Trouble falling or staying asleep, or sleeping too much: not at all 4. Feeling tired or having little energy: not at all 5. Poor appetite or overeating: not at all 6. Feeling bad about yourself - or that you are a failure or have let yourself or your family down: not at all 7. Trouble concentrating on things, such as reading the newspaper or watching television: not at all 8. Moving or speaking so slowly that other people could have noticed. Or the opposite - being so fidgety or restless that you have been moving around a lot more than usual: not at all 9. Thoughts that you would be better off or of hurting yourself in some way: not at all Total score: 1 Depression Screening Interpretation: Negative Depression Screening Done: Yes 73911 - PHQ-9 Billing: Yes Source: Developed by Drs. Zi Roque, Yas Sheldon, Steve Washington and colleagues, with an educational hay from [employer]. Thrive Questionnaire Date Thrive assessed: 02/05/25 I am a: Patient What is your living situation today?: I have a steady place to live Within the past 12 months, did the food you bought not last and you didn't have the money to get more?: Never true Within the past 12 months, did you worry whether your food would run out before you got money to buy more?: Never true Do you have trouble paying for medicines?: No Do you have trouble getting transportation to medical appointments?: No Do you have trouble paying your heating and electricity bill?: No Do you have trouble taking care of your child, family member or friend?: No Do you have trouble with day-to-day activities such as bathing, preparing meals, shopping, managing finances, etc.?: No Are you currently unemployed and looking for a job?: No Are you interested in more education?: No Please select the resources that you would like help with: None Currently or been in a relationship where the following occur: No concerns reported THRIVE Score: 0 AUDIT C Alcohol Use Questionnaire (AUDIT-C) 1. How often do you have a drink containing alcohol?: Monthly or less 2. How many drinks containing alcohol do you have on a typical day when you are drinking?: 1 or 2 3. How often do you have six or more drinks on one occasion?: Never Total Score: 1 Score Reviewed/Action Taken: No SHIMA-7 AMB Questionnaire SHIMA-7 Date SHIMA - 7 assessed: 02/05/25 Feeling nervous, anxious, or on edge: 0 = Not at all Not being able to stop or control worryin = Not at all Worrying too much about different things: 0 = Not at all Trouble relaxin = Not at all Being so restless that it is hard to sit still: 0 = Not at all Becoming easily annoyed or irritable: 0 = Not at all Feeling afraid as if something awful might happen: 0 = Not at all Total SHIMA-7 score (0-4 normal; 5-9 mild; 10-14 moderate; 15-21 severe): 0 Source: Developed by Drs. Zi Roque, Yas Sheldon, Steve Washington and colleagues, with an educational hay from [employer]. SHIMA-7 Assessment Billing SHIMA-7 Assessment Tool: SHIMA-7 Assessment 44275 Physical exam (Primary Care) Vital Signs: Last Vital Signs Temp 97.8 F 05/04/25 09:30 Pulse 78 05/04/25 09:30 Resp 16 05/04/25 09:30 BP 138/63 05/04/25 09:30 Pulse Ox 96 05/04/25 09:30 Oxygen Delivery Method Room Air 05/04/25 09:30 BMI result Body Mass Index 30.8 Tobacco/Smoking Status: Tobacco use Status Tobacco use date assessed 05/04/25 05/04/25 09:36 Patient Tobacco Use Status Never used Tobacco 05/04/25 09:36 e-Cigarette/Vaping Use Never Used 05/04/25 09:36 PHQ-9: PHQ-9 Score PHQ-9: Total score 1 05/04/25 09:36 Depression Screening Interpretation: Negative Thrive Assessment: Date of Thrive Assessment Date Thrive assessed 02/05/25 05/04/25 09:36 Currently or been in a relationship where the following occur: No concerns reported Coding Level of Care Code Est Pt Level 4 (71655) Complex EM visit Add On G2211 Diagnoses Anxiety F41.9 Additional Codes SHIMA-7 Assessment Billing - SHIMA-7 Assessment Tool: SHIMA-7 Assessment 49488 ([id number]) PHQ-9 - 91159 - PHQ-9 Billing: Yes ([id number]) Assessment & Plan Assessment & Plan (1) Anxiety: Code(s): F41.9 - Anxiety disorder, unspecified Category: Medical Plan: History of Present Illness - The patient is a 74-year-old female presenting with anxiety, heartburn, arthritis, and for preventative care. - Anxiety: Reports occasional heart palpitations and fluttering despite daily Zoloft use. - Heartburn: Experiences intermittent heartburn, managed with Pepcid. - Arthritis: Reports significant arthritis in the back, causing soreness and achiness. - Preventative care: Has anxiety about breast cancer, with a normal mammogram in October. Avoids self-examinations but agrees to a nurse-conducted examination. Social History - Family status: The patient is involved in [employer] activities. Review of Systems - Gastrointestinal: Reports intermittent heartburn. - Cardiovascular: Reports occasional heart palpitations and fluttering. - Musculoskeletal: Reports soreness and achiness in the back due to arthritis. - Psychological: Reports anxiety, particularly related to breast cancer. Physical Exam General: Cooperative and healthy appearing Nutritional Appearance: Well nourished Orientation/consciousness: Patient oriented x3 Limitations: No limitations Head: Normal to inspection General: Appearance normal, both eyes and all related structures Neck: Normal visual inspection Chest: Normal palpation of entire chest wall Respiratory: Normal respiratory effort Neurology: Patient oriented x3 Results - Labs: Immunoglobulin A for celiac was 322 (normal range 7-320), indicating no celiac disease. Plan 1. Anxiety - Continue Zoloft as prescribed for anxiety management. 2. Heartburn - Continue using rhwp-tpj-nyckchm medications like Pepcid for symptom relief. 3. Arthritis - Monitor symptoms and consider further evaluation if pain persists. 4. Preventative Care: Breast Cancer Screening - Perform breast examination with a nurse present due to patient's anxiety about self-examinations. Discussion Notes During the visit, we discussed the management of anxiety with continued use of Zoloft and addressed heartburn with kgcg-srb-mcgrtqg medications. We also talked about the patient's arthritis and the importance of monitoring symptoms. For breast cancer screening, we agreed on a nurse-assisted examination due to the patient's anxiety about self-examinations. Patient Instructions - Continue taking Zoloft daily as prescribed. - Use Pepcid or similar medications for heartburn relief as needed. - Monitor arthritis symptoms and report any worsening. - Schedule a breast examination with a nurse present.
[2025-05-04 09:30] VITALS: BP 138/63; PULSE 78; RESP 16; TEMP 36.6; O2SAT 96; BMI 30.8
--- OUTSIDE RECORDS SUMMARY | 2025-05-04 09:40 | XMS_ITS | Encounter Summary ---
Author Organization [facility] Address [address] [facility] [address] [place] [address] Phone Care Team Providers Care Trim Line Worker Name Role Phone Jens Solano MD Primary Care Provider + Encounter Details Date Type Department Care Team (Late st Contact Info) Description 09/07/2024 Procedure Pass [facility]IOP [facility]PT [address] [place] [address] Social History Tobacco Use Types Packs/Day Years [...] Upcoming Encounters Date Type Department Care Team ([facility] st Contact Info) Description 05/22/2025 5:00 PM EDT Evaluation [facility] at [address] [address] Maxwell Harkins [address] [place] [phone] [email or web address] 06/09/2025 4:00 PM EDT Evaluation [facility] at [address] [address] Maxwell Harkins [address] [place] [phone] [email or web address] 06/24/2025 9:00 AM EDT Evaluation [facility] at [address] [address] Kasi Ferraro AuD [address] [place] [phone] [email or web address] 08/04/2025 4:30 PM EST Evaluation [facility] at [address] [address] ShahanaMaxwell [address] [place] [address] [email or web address] documented as of this encounter Visit Diagnoses Not on filedocumented in this encounter Care Teams Trim Line Worker Relationship Specialty Start Date End Date Jens Solano MD PCP - General Internal Medicine 01/07/19 documented as of this encounter Additional Source Comments The information contained in this document represents components of the legal health record. It is not the complete legal health record.[facility]
--- OUTSIDE RECORDS SUMMARY | 2025-05-04 09:40 | XMS_ITS | Encounter Summary ---
Author Organization [facility] Address [address] [facility] [address] [place] [address] Phone Care Team Providers Care Combatant Diver Qualified Name Role Phone Jens Solano MD Primary Care Provider + Encounter Details Date Type Department Care Team (Latest Contact Info) Description 01/07/2019 Transcribe Orders [facility] Laboratory [address] [place] [address] Prabhakar Carney MD [facility] [address] [address] Other androgenic alopecia (Primary Dx) Social History Tobacco Use Types Packs/Day Years [...] PM EDT Evaluation [facility] at [address] [address] Maxwell Harkins [address] [place] [address] [email or web address] 06/09/2025 4:00 PM EDT Evaluation [facility] at [address] [address] Maxwell Harkins [address] [place] [address] [email or web address] 06/24/2025 9:00 AM EDT Evaluation [facility] at [address] [address] Kasi Ferraro AuD [address] [place] [address] [email or web address] 08/04/2025 4:30 PM EST Evaluation [facility] at [address] [address] Maxwell Harkins [address] [place] [address] [email or web address] documented as of this encounter Results * Iron (01/07/2019 12:43 PM EDT) IRON 86 30 - 160 ug/dL [facility] Blood 01/07/2019 12:4 3 PM EDT 01/07/2019 12:46 PM EDT us Prabhakar Carney MD LAB BLOOD ORDERABLES Fin al Result [facility] [address] [place] [address] * Ferritin (01/07/2019 12:43 PM EDT) FERRITIN 146 13 - 150 ug/L [facility] Blood 01/07/2019 12:4 3 PM EDT 01/07/2019 12:46 PM EDT us Prabhakar Carney MD LAB BLOOD ORDERABLES Fin al Result [facility] [address] [place] [address] * CBC (01/07/2019 12:43 PM EDT) WBC 5.80 3.40 - 11.20 K/uL [facility] RBC 4.32 3.80 - 4.80 M/uL [facility] HGB 12.6 12.0 - 15.0 g/dL [facility] HCT 39.4 36.0 - 46.0 % [facility] PLT 225 130 - 400 K/uL [facility] MCV 91.2 79.0 - 98.0 fL [facility] MCH 29.2 27.0 - 34.8 pg [facility] MCHC 32.0 31.5 - 36.0 g/dL [facility] RDW 12.7 10.8 - 14.6 % [facility] MPV 10.8 9.4 - 12.4 [facility] NRBC 0.00 0.00 /100 WBCs [facility] ABSOLUTE NRBC 0.00 0.00 K/uL [facility] Blood 01/07/2019 12:4 3 PM EDT 01/07/2019 12:46 PM EDT us Prabhakar Carney MD LAB BLOOD ORDERABLES Fin al Result Performing Organization Address City/State/[facility] Co de Phone Number [address] [address] documented in this encounter Visit Diagnoses Diagnosis Other androgenic alopecia- Primary documented in this encounter Care Teams Combatant Diver Qualified Relationship Specialty Start Date End Date Jens Solano MD PCP - General Internal Medicine 01/07/19 documented as of this encounter Additional Source Comments The information contained in this document represents components of the legal health record. It is not the complete legal health record.[facility]
--- OUTSIDE RECORDS SUMMARY | 2025-05-04 09:40 | XMS_ITS | Patient Health Record ---
Author Organization [facility] Address [address] [place] [address] Care Team Providers Care Gardener Florist Name Role Phone KRISTOPHER BETANCOURT Primary Care Provider Zi Lehman [phone] Allergies Allergen (clinical drug ingredient) Drug/Non Drug Allergy documented on EMR Reaction Allergy Type Onset Date Status Penicillin Unknown Drug Allergy Active Substance with sulfonamide structure and antibacterial mechanism of action (substance) Sulfa Antibiotics severe Drug Allergy Active Results Component Value Reference Range Notes Creatinine Reviewed date:04/21/2025 06:09:00 PM Interpretation: Performing Lab:[facility], [address] [place] [phone] Notes/Report: Creatinine 0.65 0.5-1.4 mg/dL Estimated Glomerular Filt Rate > 60 Chronic Kidney Disease: Estimated GFR < 60 mL/min/1.73m2 Severe Kidney Disease: Estimated GFR < 15 mL/min/1.73m2 Amylase Reviewed date:04/21/2025 06:09:06 PM Interpretation: Performing Lab:[facility], [address] [place] [phone] Notes/Report: Amylase 40 28-100 U/L Lipase Reviewed date:04/21/2025 06:09:25 PM Interpretation: Performing Lab:[facility], [address] [place] [phone] Notes/Report: Lipase 36 8-78 U/L Complete Blood Count Auto Di ff Reviewed date:04/21/2025 06:08:40 PM Interpretation: Performing Lab:[facility], [address] [place] [phone] Notes/Report: White Blood Count 4.7 4.8-10.8 X10*3/uL Red Blood Count 4.17 4.20-5.50 X10*6/uL Hemoglobin 12.7 12.0-16.0 g/dl Hematocrit 38.8 37.0-47.0 % Mean Corpuscular Volume 93.0 80.0-98.0 fL Mean Corpuscular Hemoglobin 30.5 27.0-33.0 pg Mean Corpuscular HGB Conc 32.7 31.0-35.0 g/dl Red Cell Distribution Width 13.1 11.0-16.0 % Platelet Count 218 160-400 X10*3/uL Mean Platelet Volume 12.0 9.4-12.3 fL Neutrophils Percent Auto 55.8 45-73 % Imm Gran Pct Auto 0.2 0.0-0.4 % Lymphocytes Percent Auto 33.7 20-40 % Monocytes Percent Auto 6.4 2-11 % Eosinophils Percent Auto 3.0 0-4 % Basophils Percent Auto 0.9 0-2 % NRBC Pct Auto 0.0 0.0-0.2 /100WBC Neutrophils Absolute Auto 2.6 2.0-8.3 x10*3/u L Imm Gran Abs Auto 0.01 0.00-0.03 X10*3/uL Lymphocytes Absolute Auto 1.6 1.2-4.9 X10*3/u L Monocytes Absolute Auto 0.3 0.1-1.2 X10*3/uL Eosinophils Absolute Auto 0.1 0.0-0.4 X10*3/u L Basophils Absolute Auto 0.0 0.0-0.2 X10*3/uL NRBC Abs Auto 0.000 0.0-0.012 X10*3/uL Liver Panel Reviewed date:04/21/2025 06:08:27 PM Interpretation: Performing Lab:[facility], [address] [place] [phone] Notes/Report: Bilirubin Total 0.6 0.0-1.0 mg/dL Bilirubin Direct 0.2 0.0-0.5 mg/dL Aspartate Amino Transferase 23 5-31 U/L Alanine Aminotransferase 18 0-31 U/L Total Protein 7.0 6.5-8.0 g/dL Albumin Level 4.5 3.5-5.0 g/dL Alkaline Phosphatase 77 39-117 U/L Blood Urea Nitrogen Reviewed date:04/21/2025 06:08:17 PM Interpretation: Performing Lab:[facility], [address] [place] [phone] Notes/Report: Blood Urea Nitrogen 16 9-16 mg/dL Immunoglobulin A Reviewed date:04/28/2025 12:17:04 AM Interpretation: Performing Lab:[facility], [address] [place] [phone] Notes/Report: Immunoglobulin A 322 70-320 mg/dL THIS TEST WAS PERFORMED AT: [facility] [address] [place] [phone] KWAME SANTA MD Transglutaminase Ab IgG Reviewed date:04/28/2025 12:16:25 AM Interpretation: Performing Lab:[facility], [address] [place] [phone] Notes/Report: Transglutaminase Ab IgG <1.0 Value Interpretation ----- <15.0 Antibody not detected > or = 15.0 Antibody detected THIS TEST WAS PERFORMED AT: [facility] [address] [place] [phone] KWAME SANTA MD Transglutaminase IgA Reviewed date:04/28/2025 12:16:14 AM Interpretation: Performing Lab:[facility], [address] [place] [phone] Notes/Report: Transglutaminase IgA <1.0 Value Interpretation ----- <15.0 Antibody not detected > or = 15.0 Antibody detected THIS TEST WAS PERFORMED AT: [facility] [address] [place] [phone] KWAME SANTA MD Gliadin Ab Panel Reviewed date:04/28/2025 12:16:03 AM Interpretation: Performing Lab:[address] [phone] Notes/Report: Gliadin Deamidated IgA Ab 1.1 Value Interpretation ----- <15.0 Antibody not detected > or = 15.0 Antibody detected Gliadin Deamidated IgG Ab <1.0 Value Interpretation ----- <15.0 Antibody not detected > or = 15.0 Antibody detected THIS TEST WAS PERFORMED AT: [facility] [address] [place] [phone] KWAME SANTA MD Endomysial IgA rflx Titer Reviewed date:04/28/2025 12:15:49 AM Interpretation: Performing Lab:[facility], [address] [place] [phone] Notes/Report: Endomysial IgA Antibody Negative Negative THIS TEST WAS PERFORMED AT: [facility]/[address] [address] MUKESH MIRAMONTES MD,PHD Endomysial Titer TNP Reason For Referral No Information Medications Medication SIG (Take, Route, Frequency, Duration) [...] Problem Status W/U Status Risk Notes Problem Colon cancer screening (560943712) Colon cancer screening (Z12.11) Active confirmed Problem Change in bowel habit (62924987) Change in bowel habits (R19.4) Active confirmed Problem Generalized abdominal pain (222568452) Abdominal discomfort, generalized (R10.84) Active confirmed Vital Signs Blood pressure diastolic 77 mm Hg 04/20/2025 Height 63 in 04/20/2025 Blood pressure systolic 111 mm Hg 04/20/2025 Weight 175 lbs 04/20/2025 BMI 31 kg/m2 04/20/2025 Procedures Procedure Date Ordered Date Performed Result Body Sit e COLONOSCOPY 04/20/2025 N/A Encounters Encounter Location Date Provider Diagnosis [facility] [address] [place] [address] 04/20/2025 Zi Lange Change in bowel habi ts R19.4 ; Colon cancer screening Z12.11 and Abdominal discomfort, generalized R10.84 [facility] [address] [place] [address] 04/22/2025 Zi Lange Assessments Encounter Date Diagnosis (ICD Code) Assessment Notes Treatment Notes Treatment Clinical Notes Section Notes 04/20/2025 Colon cancer screening (ICD-10 - Z12.11) [...] keep you advised of her progress. 04/20/2025 Change in bowel habits (ICD-10 - [...] CT ABD & PELVIS WITH CONTRAST 04/20/2025 Next Appt Details Provider Name:Zi Lange , 07/14/2025 11:30:00 AM, [address] [place] [address] , [place], [place], [phone], Insurance Providers Payer Name Payer Address Payer Phone Subscriber Number Group Number Insured Name Patient Relationship to Insured Coverage Start Date Coverage End Date [place] [address] [place] [address] [id number] VERENICE MALIK Self - patient is the insured 8 [facility] [address] [place] [address] [id number] VERENICE MALIK Self - patient is the insured Medical (General) History Medical History History ICD Code Denies [place],DM,CVA,Lung disease,renal dise ase Depression/Anxiety IBS 3 negative colonoscopies in [place] with her most recent one in October 2016 by Surgical History Surgery Date(Month/Year) Oopherectomy bilateral Appendectomy CCY Hernia repair x 3 section x 6
--- OUTSIDE RECORDS SUMMARY | 2025-05-04 09:40 | XMS_ITS | Clinical Summary ---
Author Organization [facility] Address [address] [address] Phone Care Team Providers Care Proposal Manager Name Role Phone Jens Solano MD [...] Encounters Date Type Department Care Team Description 04/30/2025 8:00 AM EDT Evaluation [facility] at [address] [place] [address] Kasi Ferraro AuD Maison, Stephane F Tinnitus of both ears (Primary Dx); Sensorineural hearing loss (SNHL) of both ears 04/20/2025 Orders Only [facility] Otolaryngology General LW [address] [place] [address] Delores Juárez Tinnitus, unspecified laterality (Primary Dx) [...] PM EDT Evaluation [facility] at [address] [address] Maxwell Harkins [address] [place] [address] [email or web address] 06/09/2025 4:00 PM EDT Evaluation [facility] at [address] [address] Maxwell Harkins [address] [place] [address] [email or web address] 06/24/2025 9:00 AM EDT Evaluation [facility] at [address] [address] Kasi Ferraro AuD [address] [place] [address] [email or web address] 08/04/2025 4:30 PM EST Evaluation [facility] at [address] [address] Maxwell Harkins [address] [place] [address] [email or web address] Health Maintenance Due Date Last Done Comments [...] OSTEOPOROSIS SCREENING INITIAL (ONE-TIME) 2017 COVID-19 VACCINE (6 - season) 2024 06/13/2023, 04/29/2022, 07/05/2021, Additional history exists INFLUENZA VACCINE (#1) 2025 07/05/2021 RSV VACCINE (1 - 1-dose 75+ series) [...] this topic Medical Devices Implanted Type Area Parking Officer Device Identifier Shelf Expiration Date Model / Serial / Lot Mesh Abdomen Description:Hernia repair Procedures Procedure Name Priority Date/Time Associated Diagnosis Comments AUDIOLOGY ORDERS 04/30/2025 7:17 AM EDT from Last 3 Months Results * Audiology Orders (04/30/2025 7:17 AM EDT) 04/30/2025 7:17 AM EDT us Provider Not In System PhD AUDIOLOGY SERVICES OR DERABLES Final Result Performing Organization Address City/State/RUST Co de Phone Number DR NORA OVALLE from Last 3 Months Insurance MEDICARE PART A & B [facility] Member Subscriber Plan / Payer ( fective 2000-Present) Name:Julia Malik Relation to Subscriber:Spouse Name:REBECCA MALIK Date of :1951 (Home) Address: [address] [place] [address] Payer ID:[id number] (NAIC) Group ID:[id number] Type:PPO Address: [id number] [place] [address] MEDICARE PART A & B [facility] Member Subscriber Plan / Payer ( fective 2000-Present) Name:Julia Malik Relation to Subscriber:Spouse Name:REBECCA MALIK Date of :1951 (Home) Address: [address] [place] [address] Payer ID:[id number] (NAIC) Group ID:[id number] Type:PPO Address: [address] [place] [address] MEDICARE PART A & B [facility] Member Subscriber Plan / Payer (Ef fective 2000-Present) Name:Julia Malik Relation to Subscriber:Spouse Name:REBECCA MALIK Date of :1951 (Home) Address: [address] [place] [address] Payer ID:[id number] ([facility]) Group ID:[id number] Type:PPO Address: [facility] [address] [place] [address] MEDICARE PART A & B [facility] Member Subscriber Plan / Payer (Ef fective 2000-Present) Name:Julia Malik Relation to Subscriber:Spouse Name:REBECCA MALIK Date of :1951 (Home) Address: [address] [place] [address] Payer ID:[id number] (NAIC) Group ID:[id number] Type:PPO Address: [address] [place] [address] MEDICARE PART A & B [facility] Member Subscriber Plan / Payer (Ef fective 2000-Present) Name:Julia Malik Relation to Subscriber:Spouse Name:REBECCA MALIK Date of :1951 (Home) Address: [address] [place] [address] Payer ID:[id number] (NAIC) Group ID:[id number] Type:PPO Address: [facility] [address] [place] [address] MEDICARE PART A & B [facility] Member Subscriber Plan / Payer ( fective 2000-Present) Name:Julia Malik Relation to Subscriber:Spouse Name:REBECCA MALIK Date of :1951 (Home) Address: [address] [place] [address] [place] [address] Payer ID:[id number] (NAIC) Group ID:[id number] Type:PPO Address: [address] [place] [address] [facility] [address] MEDICARE PART A & B [facility] Member Subscriber Plan / Payer ( fective 2000-Present) Name:Julia Malik Relation to Subscriber:Spouse Name:REBECCA MALIK Date of :1951 (Home) Address: [address] [place], [place] [address] Payer ID:[id number] (NAIC) Group ID:[id number] Type:PPO Address: [address] [place] [address] [place] MEDICARE PART A & B [facility] Member Subscriber Plan / Payer (Ef fective 2000-Present) Name:Julia Malik Relation to Subscriber:Spouse Name:REBECCA MALIK Date of :1951 (Home) Address: [address] [place] [address] Payer ID:[id number] (NAIC) Group ID:[id number] Type:O Address: [facility] [address] [place] [address] MEDICARE PART A & B [facility] Member Subscriber Plan / Payer (Ef fective 2000-Present) Name:Julia Malik Relation to Subscriber:Spouse Name:REBECCA MALIK Date of :1951 (Home) Address: [address] [place] [address] Payer ID:[id number] (NAIC) Group ID:[id number] Type:PPO Address: [address] [place] [address] Advance Directives For more information, please contact: [phone] (9AM - 5PM Allie/[facility], Saturday-Saturday) Documents on File Type Date Recorded Patient Preparatory Technician Expl anation Healthcare Proxy 09/14/2024 3:49 PM Care Teams Proposal Manager Relationship Specialty Start Date End Date Jens Solano MD PCP - General Internal Medicine 01/07/19 Additional Source Comments The information contained in this document represents components of the legal health record. It is not the complete legal health record.[facility]
--- OUTSIDE RECORDS SUMMARY | 2025-05-04 09:40 | XMS_ITS | Clinical Summary ---
Author Organization [facility] Address [address] [place] [address] Care Team Providers Care Treadle Cut Off Saw Operator Name Role Phone Wilian Bergeron Primary Care Provider [phone] Encounters Date Type Department Care Team Description 02/11/2025 2:00 PM EDT Procedure visit [facility] [address] [place] [address] Nancy Hansen, AUD, CCC-A Subjective tinnitus [...] patient's age to complete this topic Insurance [facility] Member Subscriber Plan / Payer (Ef fective 2024-Present) Name:Julia Hall Relation to Subscriber:Spouse Name:REBECCA HALL Date of :1951 (Home) Address: [address] [place] [address] Payer ID:[id number] (NAIC) Group ID:[id number] Type:Not on file Address: [address] [place] [address] MEDICARE Care Teams Treadle Cut Off Saw Operator Relationship Specialty Start Date End Date Wilian Bergeron [address] [place] [address] PCP - General Internal Medicine 02/05/25
== END 2025-05-04 10:09 | disposition home or self-care (01) ==
LOC: HO.HMCSH 09:15
PROVIDERS: PCP Internal Medicine; Visit Provider Internal Medicine
DX: F41.9 Anxiety disorder, unspecified (principal)

== ENCOUNTER → 2025-05-04 09:15 | Outpatient (BNVA) | payer MEDICARE, BC, SELFPAY | PROVIDERS: PCP Internal Medicine; Visit Provider Internal Medicine | DX: F41.9 Anxiety disorder, unspecified (principal) | CPT/HCPCS: 96127; 99212 ==

== ENCOUNTER 2025-05-26 12:57 | Outpatient (REF) | payer MEDICARE, BC, SELFPAY ==
--- OUTSIDE RECORDS SUMMARY | 2024-06-17 | XMS_ITS | Encounter Summary ---
Author Organization [facility] Address [address] [employer] [facility] [address] [place] [address] Phone Care Team Providers Care Hand Splitter Name Role Phone Jens Solano MD Primary Care Provider + Encounter Details Date Type Department Care Team (Late st Contact Info) Description 06/17/2024 Hospital Encounter [facility] [address] [place] [phone] Bipin Coburn MD, MS [address] [place] [address] [email or web address] Social History Tobacco Use Types Packs/Day [...] Info) Description 06/09/2025 4:00 PM EDT Evaluation [facility] at [address] [address] Maxwell Harkins [address] [place] [phone] Yanira@[email or web address] 06/24/2025 9:00 AM EDT Evaluation [facility] at [address] [address] Kasi Ferraro AuD [address] [place] [phone] [email or web address]@[email or web address] 09/18/2025 4:30 PM EST Evaluation [facility] at [address] [address] Maxwell Harkins [address] [place] [phone] [email or web address] documented as of this encounter Procedures Procedure Name Priority Date/Time Associated Diagnosis Comments CT FACE OUTSIDE (NO INTERPRETATION) Routine 06/17/2024 12:00 AM EDT documented in this encounter Results * CT Face Outside (No Interpretation) (06/17/2024 12:00 AM EDT) Narrative [facility] ZAZUETA INTERFACES - 08/13/2024 1:14 PM EST This study is for PACS storage only and not for interpretation. Bipin Coburn MD, MS IMG OUTSIDE IMAGING W/OUT INTERPRETATION Final Result [facility] documented in this encounter Visit Diagnoses Not on filedocumented in this encounter Care Teams Hand Splitter Relationship Specialty Start Date End Date Jens Solano MD PCP - General Internal Medicine 01/07/19 documented as of this encounter Additional Source Comments The information contained in this document represents components of the legal health record. It is not the complete legal health record.[facility]
--- OUTSIDE RECORDS SUMMARY | 2024-06-17 00:05 | XMS_ITS | Encounter Summary ---
Author Organization [facility] Address [address] [place] [address] Phone Care Team Providers Care Velvet Cutter Name Role Phone Jens Solano MD Primary Care Provider + Encounter Details Date Type Department Care Team (Late st Contact Info) Description 06/17/2024 12:05 AM EDT Hospital Encounter [facility] [address] [place] [address] Bipin Coburn MD, MS [address] [place] [address] [email or web address]. [facility] Social History Tobacco Use Types Packs/Day Years [...] Info) Description 06/09/2025 4:00 PM EDT Evaluation [facility] at [address] [address] Maxwell Harkins [address] [place] [phone] Yanira@[email or web address] 06/24/2025 9:00 AM EDT Evaluation [facility] at [address] [address] Kasi Ferraro AuD [address] [place] [phone] Rashaun@[facility] 09/18/2025 4:30 PM EST Evaluation [facility] at [address] [address] Maxwell Harkins [address] [place] [phone] Yanira@[email or web address] documented as of this encounter Procedures [...] on filedocumented in this encounter Care Teams Velvet Cutter Relationship Specialty Start Date End Date Jens Solano MD PCP - General Internal Medicine 01/07/19 documented as of this encounter Additional Source Comments The information contained in this document represents components of the legal health record. It is not the complete legal health record.[facility]
--- OUTSIDE RECORDS SUMMARY | 2025-05-22 17:00 | XMS_ITS | Encounter Summary ---
Author Organization [facility] Address [address] [place] [address] Phone Care Team Providers Care Youth Services Specialist Name Role Phone Jens Solano MD Primary Care Provider + Reason for Visit * Reason Comments Tinnitus * Hospital - Outpatient (Routine) - Closed Specialty Diagnoses / Procedures Referred By Contac t Referred To Contact Audiology Procedures COMMUNICATION NEEDS ASSESSMENT Jens Solano MD [address] [place] [address] Phone: tel: fax: Maxwell Harkins [address] [place] [address] Phone: tel: fax: mailto:[email or web address] [email or web address] Referral ID Status Reason Start Date Expiration Date Visits Re quested Visits Authorized [id number] Closed 05/22/2025 06/08/2025 1 1 Encounter Details Date Type Department Care Team (Late st Contact Info) Description 05/22/2025 5:00 PM EDT Evaluation [facility] at [address] [place] [address] Maxwell Harkins [address] [place] [address] [email or web address] Sensorineural hearing loss (SNHL) of both [...] Upcoming Encounters Date Type Department Care Team ([facility] st Contact Info) Description 06/09/2025 4:00 PM EDT Evaluation [facility] at [address] [address] Maxwell Harkins [address] [place] [address] [email or web address] 06/24/2025 9:00 AM EDT Evaluation [facility] at [address] [address] Kasi Ferraro AuD [address] [place] [address] [email or web address] 09/18/2025 4:30 PM EST Evaluation [facility] at [facility] 243 [facility] Room [address] [place] [address] Maxwell Harkins [address] [place] [address] [email or web address] documented as of this encounter Visit Diagnoses Diagnosis Sensorineural hearing loss (SNHL) of both ears- Primary Tinnitus of both ears Unspecified tinnitus documented in this encounter Care Teams Youth Services Specialist Relationship Specialty Start Date End Date Jens Solano MD PCP - General Internal Medicine 01/07/19 documented as of this encounter Additional Source Comments The information contained in this document represents components of the legal health record. It is not the complete legal health record.[facility]
--- NOTE | ~2025-05-26 | CT_ITS ---
EXAMINATION: CT ABDOMEN AND PELVIS WITH CONTRAST CLINICAL INFORMATION: Change in bowel movements. COMPARISON: Correlated to ultrasound abdomen, limited dated October 14, 2024. Prior CT dated November 18, 2005 is not available on PACS. TECHNIQUE: Multidetector volumetric images were obtained from the superior aspect of the liver through the pubic symphysis following administration 85 mL of Omnipaque 350 intravenous contrast. Sagittal and coronal reformatted images were obtained on the technologist's workstation. Oral contrast: No This CT examination was performed using dose optimization techniques as appropriate, variously including the following: *Automated exposure control *Adjustment of mA and/or kV according to patient size (this includes techniques or standardized protocols for targeted exams where dose is matched to indication/reason for exam; i.e. extremities or head) *Use of iterative reconstruction technique. DLP: 462 mGy centimeter. FINDINGS: LUNG BASES: Linear attenuation abnormalities in the lung bases included on the right middle lung lobe. LIVER, GALLBLADDER, AND BILIARY TREE: Liver measures 15 cm. No focal mass. Main portal veins, hepatic veins and intrahepatic portion of the IVC are patent. Absent gallbladder. Prominent cystic duct. Common bile duct measures 7 mm. PANCREAS: No focal mass. No peripancreatic fluid collection. No main pancreatic ductal dilatation. SPLEEN: 8 cm. No focal mass. ADRENAL GLANDS: Soft tissue fullness, left adrenal gland measures 70 Hounsfield units no nodular lesion, right adrenal gland.. KIDNEYS AND URETERS: No hydronephrosis. No gross nephrolithiasis. Normal enhancement pattern of the renal parenchyma without focal mass. Probable small parapelvic renal cysts. Extrarenal pelvises. BLADDER: Fluid-filled. Punctate calcifications in the lower pelvis likely extravesical. GASTROINTESTINAL TRACT: Abundant stool in the rectosigmoid colon. No intestinal obstruction pattern. No pneumatosis intestinalis. I do not see the appendix. Hiatal hernia, moderate size. There is hyperdensity in the vagina. ABDOMINAL WALL: There is an infraumbilical right midline fat-containing hernia/eventration. Diastases abdominal rectus muscles in the periumbilical region. LYMPH NODES: No mesenteric or retroperitoneal lymphadenopathy. VASCULAR: Mixed plaques in the abdominal aorta wall. No aneurysm or dissection. PELVIC VISCERA: Hyperdensity within the vagina. OSSEOUS STRUCTURES: Grade 1 anterolisthesis at L4-5 likely degenerative resulting in bilateral neuroforamina stenosis. Multilevel marginal osteophyte formation and endplate sclerosis decreased intervertebral disc height in the lower thoracic spine. Prominent left transverse processes of L5 articulating with the sacrum. Sclerosis along the reticular surface with subchondral cyst formation both coxofemoral joints and asymmetric joint space narrowing, right greater than the left side. CT/CT abdomen pelvis w IV con IMPRESSION: Abundant stool in the rectosigmoid colon without intestinal obstruction pattern. Concerning reflux into the vagina. Hiatal hernia, moderate size. Right midline infraumbilical fat-containing eventration. Osteoarthritis/osteoarthrosis both hips. Grade 1 anterolisthesis L4-5. Fleischner guidelines were followed. Electronically signed by: Dawit Noble MD 05/26/2025 03:59 PM EDT
[2025-05-26 15:24] LABS: Creatinine POC 0.7 mg/dL (0.5-1.4); GFR POC > 60
[2025-05-26] MEDS: iohexoL 350 MG/ML 100 ML INFUS..BTL IV (15:35)
[2025-05-26] MEDS: Barium Sulfate Oral (Vanilla) 450 ML ORAL.SUSP 900 ML PO (15:35)
--- OUTSIDE RECORDS SUMMARY | 2025-05-26 16:24 | XMS_ITS | Patient Health Record ---
Author Organization [facility] Address [address] [place] [address] Care Team Providers Care Day Care Director Name Role Phone WILIAN BETANCOURT Primary Care Provider Zi Lehman [phone] Allergies Allergen (clinical drug ingredient) Drug/Non Drug Allergy documented on EMR Reaction Allergy Type Onset Date Status Penicillin Unknown Drug Allergy Active Substance with sulfonamide structure and antibacterial mechanism of action (substance) Sulfa Antibiotics severe Drug Allergy Active Results Component Value Reference Range Notes Creatinine Reviewed date:04/21/2025 06:09:00 PM Interpretation: Performing Lab:[facility], [address] [place] [phone] Notes/Report: Creatinine 0.65 0.5-1.4 mg/dL Estimated Glomerular Filt Rate > 60 Chronic Kidney Disease: Estimated GFR < 60 mL/min/1.73m2 Severe Kidney Disease: Estimated GFR < 15 mL/min/1.73m2 Amylase Reviewed date:04/21/2025 06:09:06 PM Interpretation: Performing Lab:[facility], [address] [place] [phone] Notes/Report: Amylase 40 28-100 U/L Lipase Reviewed date:04/21/2025 06:09:25 PM Interpretation: Performing Lab:[facility], [address] [place] [phone] Notes/Report: Lipase 36 8-78 U/L Complete Blood Count Auto Di ff Reviewed date:04/21/2025 06:08:40 PM Interpretation: Performing Lab:[facility], [address] [place] [phone] Notes/Report: White Blood Count 4.7 4.8-10.8 X10*3/uL [...] Panel Reviewed date:04/21/2025 06:08:27 PM Interpretation: Performing Lab:[facility], [address] [place] [phone] Notes/Report: Bilirubin Total 0.6 0.0-1.0 mg/dL Bilirubin Direct 0.2 0.0-0.5 mg/dL Aspartate Amino Transferase 23 5-31 U/L Alanine Aminotransferase 18 0-31 U/L Total Protein 7.0 6.5-8.0 g/dL Albumin Level 4.5 3.5-5.0 g/dL Alkaline Phosphatase 77 39-117 U/L Blood Urea Nitrogen Reviewed date:04/21/2025 06:08:17 PM Interpretation: Performing Lab:[facility], [address] [place] [phone] Notes/Report: Blood Urea Nitrogen 16 9-16 mg/dL Immunoglobulin A Reviewed date:04/28/2025 12:17:04 AM Interpretation: Performing Lab:[facility], [address] [place] [phone] Notes/Report: Immunoglobulin A 322 70-320 mg/dL THIS TEST WAS PERFORMED AT: [facility] [address] [place] [phone] KWAME SANTA MD Transglutaminase Ab IgG Reviewed date:04/28/2025 12:16:25 AM Interpretation: Performing Lab:[facility], [address] [place] [phone] Notes/Report: Transglutaminase Ab IgG <1.0 Value Interpretation ----- <15.0 Antibody not detected > or = 15.0 Antibody detected THIS TEST WAS PERFORMED AT: [facility] [address] [place] [phone] KWAME SANTA MD Transglutaminase IgA Reviewed date:04/28/2025 12:16:14 AM Interpretation: Performing Lab:[facility], [address] [place] [phone] Notes/Report: Transglutaminase IgA <1.0 Value Interpretation ----- <15.0 Antibody not detected > or = 15.0 Antibody detected THIS TEST WAS PERFORMED AT: [facility] [address] [place] [phone] KWAME SANTA MD Gliadin Ab Panel Reviewed date:04/28/2025 12:16:03 AM Interpretation: Performing Lab:[address] [phone] Notes/Report: Gliadin Deamidated IgA Ab 1.1 Value Interpretation ----- <15.0 Antibody not detected > or = 15.0 Antibody detected Gliadin Deamidated IgG Ab <1.0 Value Interpretation ----- <15.0 Antibody not detected > or = 15.0 Antibody detected THIS TEST WAS PERFORMED AT: [facility] [address] [place] [phone] KWAME SANTA MD Endomysial IgA rflx Titer Reviewed date:04/28/2025 12:15:49 AM Interpretation: Performing Lab:[facility], [address] [place] [phone] Notes/Report: Endomysial IgA Antibody Negative Negative THIS TEST WAS PERFORMED AT: [employer]/[address] [address] MUKESH MIRAMONTES MD,PHD Endomysial Titer TNP CT abdomen pelvis w con (Not yet reviewed by provider) Interpretation: Performing Lab: Notes/Report: [address] [address] [address] Scan Report Signed Patient: Verenice Malik MR#: [id number] 2 : 1950 Acct:[id number] Age/Sex: 74 / F ADM Date: 05/26/25 Loc: HO.CT Attending Dr: Zi Lange MD Ordering Physician: Zi Lange MD Date of Service: 05/26/25 Procedure(s): CT abdomen pelvis w IV con Accession Number(s): [id number] cc: Wilian Betancourt MD; Zi Lange MD Report Number: [id number]: Total DLP = 462.00 mGy-cm Reason for Exam: CHANGE IN BOWEL MOVEMENTS EXAMINATION: CT ABDOMEN AND PELVIS WITH CONTRAST CLINICAL INFORMATION: Change in bowel movements. COMPARISON: Correlated to ultrasound abdomen, limited dated October 14, 2024. Prior CT dated 2005 is not available on PACS. TECHNIQUE: Multidetector volumetric images were obtained from the superior aspect of the liver through the pubic symphysis following administration 85 mL of Omnipaque 350 intravenous contrast. Sagittal and coronal reformatted images were obtained on the technologist's workstation. Oral contrast: No This CT examination was performed using dose optimization techniques as appropriate, variously including the following: *Automated exposure control *Adjustment of mA and/or kV according to patient size (this includes techniques or standardized protocols for targeted exams where dose is matched to indication/reason for exam; i.e. extremities or head) *Use of iterative reconstruction technique. DLP: 462 mGy centimeter. FINDINGS: LUNG BASES: Linear attenuation abnormalities in the lung bases included on the right middle lung lobe. LIVER, GALLBLADDER, AND BILIARY TREE: Liver measures 15 cm. No focal mass. Main portal veins, hepatic veins and intrahepatic portion of the IVC are patent. Absent gallbladder. Prominent cystic duct. Common bile duct measures 7 mm. PANCREAS: No focal mass. No peripancreatic fluid collection. No main pancreatic ductal dilatation. SPLEEN: 8 cm. No focal mass. ADRENAL GLANDS: Soft tissue fullness, left adrenal gland measures 70 Hounsfield units no nodular lesion, right adrenal gland.. KIDNEYS AND URETERS: No hydronephrosis. No gross nephrolithiasis. Normal enhancement pattern of the renal parenchyma without focal mass. Probable small parapelvic renal cysts. Extrarenal pelvises. BLADDER: Fluid-filled. Punctate calcifications in the lower pelvis likely extravesical. GASTROINTESTINAL TRACT: Abundant stool in the rectosigmoid colon. No intestinal obstruction pattern. No pneumatosis intestinalis. I do not see the appendix. Hiatal hernia, moderate size. There is hyperdensity in the vagina. ABDOMINAL WALL: There is an infraumbilical right midline fat-containing hernia/eventration. Diastases abdominal rectus muscles in the periumbilical region. LYMPH NODES: No mesenteric or retroperitoneal lymphadenopathy. VASCULAR: Mixed plaques in the abdominal aorta wall. No aneurysm or dissection. PELVIC VISCERA: Hyperdensity within the vagina. OSSEOUS STRUCTURES: Grade 1 anterolisthesis at L4-5 likely degenerative resulting in bilateral neuroforamina stenosis. Multilevel marginal osteophyte formation and endplate sclerosis decreased intervertebral disc height in the lower thoracic spine. Prominent left transverse processes of L5 articulating with the sacrum. Sclerosis along the reticular surface with subchondral cyst formation both coxofemoral joints and asymmetric joint space narrowing, right greater than the left side. CT/CT abdomen pelvis w IV con IMPRESSION: Abundant stool in the rectosigmoid colon without intestinal obstruction pattern. Concerning reflux into the vagina. Hiatal hernia, moderate size. Right midline infraumbilical fat-containing eventration. Osteoarthritis/osteoarthrosis both hips. Grade 1 anterolisthesis L4-5. Fleischner guidelines were followed. Electronically signed by: Dawit Noble MD 05/26/2025 03:59 PM EDT RP Dictated By: Dawit Marshall MD Signed By: <Electronically signed by Dawit Palmer MD in OV> 05/26/25 1559 DD/ 1501 TD/TT: 05/26/25 1536 Accounting Representative: Creatinine GFR POC (Not yet reviewed by provider) Interpretation: Performing Lab:[facility], [address] [place] [phone] Notes/Report: [id number] 0.68 >60 1509 HO.LARG Creatinine POC 0.7 0.5-1.4 mg/dL GFR POC > 60 Chronic Kidney Disease: Estimated GFR < 60 mL/min/1.73m2 Severe Kidney Disease: Estimated GFR < 15 mL/min/1.73m2 Reason For Referral No Information Medications Medication [...] Status Risk Notes Problem Colon cancer screening (102916343) Colon cancer screening (Z12.11) Active confirmed Problem Change in bowel habit (56365325) Change in bowel habits (R19.4) Active confirmed Problem Generalized abdominal pain (073062577) Abdominal discomfort, generalized (R10.84) Active confirmed Vital Signs Blood pressure diastolic 77 mm Hg 04/20/2025 Height 63 in 04/20/2025 Blood pressure systolic 111 mm Hg 04/20/2025 Weight 175 lbs 04/20/2025 BMI 31 kg/m2 04/20/2025 Procedures Procedure Date Ordered Date Performed Result Body Sit e COLONOSCOPY 04/20/2025 N/A Encounters Encounter Location Date Provider Diagnosis [facility] [address] [place] [address] 04/20/2025 Zi Lange Change in bowel habi ts R19.4 ; Colon cancer screening Z12.11 and Abdominal discomfort, generalized R10.84 [facility] [address] [place] [address] 04/22/2025 Zi Lange Assessments Encounter Date Diagnosis [...] CT ABD & PELVIS WITH CONTRAST 04/20/2025 CT abdomen pelvis w con 05/26/2025 Creatinine GFR POC 05/26/2025 Next Appt Details Provider Name:Zi Lange , 07/14/2025 11:30:00 AM, [address] [place] [address] , [place], [place], [id number], Insurance Providers Payer Name Payer Address Payer Phone Subscriber Number Group Number Insured Name Patient Relationship to Insured Coverage Start Date Coverage End Date MEDICARE OF [place] [address] [place] [address] [id number] VERENICE MALIK Self - patient is the insured 8 [facility] [address] [place] [address] [id number] VERENICE MALIK Self - patient is the insured Medical (General) History Medical History History ICD Code Denies AR,DM,CVA,Lung disease,renal dise ase Depression/Anxiety IBS 3 negative colonoscopies in [place] with her most recent one in October 2016 by Surgical History Surgery Date(Month/Year) Oopherectomy bilateral Appendectomy CCY Hernia repair x 3 section x 6
--- OUTSIDE RECORDS SUMMARY | 2025-05-26 16:24 | XMS_ITS | Clinical Summary ---
Author Organization [facility] Address [address] [address] Phone Care Team Providers Care Ladies' Locker Room Attendant Name Role Phone Jens Solano MD Primary [...] Encounters Date Type Department Care Team Description 05/22/2025 5:00 PM EDT Evaluation [facility] at [address] [place] [address] Maxwell Harkins Sensorineural hearing loss (SNHL) of both ears (Primary Dx); Tinnitus of both ears 05/14/2025 Orders Only [facility] Otolaryngology General [address] [place] [address] JuárezDelores Tinnitus, unspecified laterality (Primary Dx) 04/30/2025 8:00 AM EDT Evaluation [facility] at [address] [place] [address] Kasi Ferraro, Scotty Harkins Maxwell Carlos Tinnitus of both ears (Primary Dx); Sensorineural hearing loss (SNHL) of both ears 04/20/2025 Orders Only [facility] General LW [address] [place] [address] JuárezNellieDelores Tinnitus, unspecified laterality (Primary Dx) from Last [...] Upcoming Encounters Date Type Department Care Team ([facility] st Contact Info) Description 06/09/2025 4:00 PM EDT Evaluation [facility] at [address] [address] Maxwell Harkins [address] [place] [address] [email or web address] 06/24/2025 9:00 AM EDT Evaluation [facility] at [address] [address] Kasi Ferraro AuD [address] [place] [address] [email or web address] 09/18/2025 4:30 PM EST Evaluation [facility] at [address] [address] Maxwell Harkins [address] [place] [address] [email or web address] Health Maintenance Due Date Last Done Comments Adult Td,Tdap Booster 1950 LIPID PANEL 1950 DEPRESSION SCREENING 1964 HEPATITIS C SCREENING 1970 MAMMOGRAM 1992 COLOGUARD 1997 COLONOSCOPY 1997 COLORECTAL CANCER SCREENING 1997 FIT TEST 1997 FOBT 1997 SIGMOIDOSCOPY 1997 VIRTUAL COLONOSCOPY 1997 PNEUMOCOCCAL VACCINES (50+ years) (1 of 1 - PCV) 2002 ZOSTER VACCINES (1 of 2) 2002 OSTEOPOROSIS SCREENING INITIAL (ONE-TIME) 2017 INFLUENZA VACCINE (#1) 2025 07/05/2021 COVID-19 VACCINE (2024- season) 2025 06/13/2023, 04/29/2022, 07/05/2021, Additional history exists RSV [...] this topic Medical Devices Implanted Type Area Boat Diesel Motor Mechanic Device Identifier Shelf Expiration Date Model / Serial / Lot Mesh Abdomen Description:Hernia repair Procedures Procedure Name Priority Date/Time Associated Diagnosis Comments AUDIOLOGY ORDERS 04/30/2025 7:17 AM EDT from Last 3 Months Results * Audiology Orders (04/30/2025 7:17 AM EDT) 04/30/2025 7:17 AM EDT us Provider Not In System PhD AUDIOLOGY SERVICES OR DERABLES Final Result DR NORA OVALLE from Last 3 Months Insurance MEDICARE PART A & B [facility] Member Subscriber Plan / Payer ( fective 2000-Present) Name:Julia Malik Relation to Subscriber:Spouse Name:REBECCA MALIK Date of :1953 (Home) Address: [address] [place] [address] Payer ID:[id number] (NAIC) Group ID:[id number] Type:PPO Address: [place] [address] MEDICARE PART A & B [facility] Member Subscriber Plan / Payer ( fective 2000-Present) Name:Jluia Malik Relation to Subscriber:Spouse Name:REBECCA MALIK Date of :1953 (Home) Address: [address] [place] [address] Payer ID:[id number] (NAIC) Group ID:[id number] Type:PPO Address: [place] [address] MEDICARE PART A & B [facility] Member Subscriber Plan / Payer ( fective 2000-Present) Name:Julia Malik Relation to Subscriber:Spouse Name:REBECCA MALIK Date of :1951 (Home) Address: [address] [place] [address] Payer ID:[id number] (NAIC) Group ID:[id number] Type:[facility] Address: [facility] [address] [place] [address] MEDICARE PART A & B [facility] Member Subscriber Plan / Payer (Ef fective 2000-Present) Name:Julia Malik Relation to Subscriber:Spouse Name:REBECCA MALIK Date of :1951 (Home) Address: [address] [place] [address] Payer ID:[id number] (NAIC) Group ID:[id number] Type:PPO Address: [id number] [place] [address] MEDICARE PART A & B [facility] Member Subscriber Plan / Payer (Ef fective 2000-Present) Name:Julia Malik Relation to Subscriber:Spouse Name:REBECCA MALIK Date of :1951 (Home) Address: [address] [place] [address] Payer ID:[id number] (NAIC) Group ID:[id number] Type:PPO Address: [address] [place] [address] [place] [address] MEDICARE PART A & B [facility] Member Subscriber Plan / Payer ( fective 2000-Present) Name:Julia Malik Relation to Subscriber:Spouse Name:REBECCA MALIK Date of :1951 (Home) Address: [address] [place] [address] Payer ID:[id number] (NAIC) Group ID:[id number] Type:PPO Address: [facility] [id number] [place] [address] MEDICARE PART A & B [facility] Member Subscriber Plan / Payer ( fective 2000-Present) Name:Julia Malik Relation to Subscriber:Spouse Name:REBECCA MALIK Date of :1951 (Home) Address: [address] [place] [address] Payer ID:[id number] (NAIC) Group ID:[id number] Type:PPO Address: [address] [place] [address] MEDICARE PART A & B [facility] Member Subscriber Plan / Payer (Ef fective 2000-Present) Name:Julia Malik Relation to Subscriber:Spouse Name:REBECCA MALIK Date of :1951 (Home) Address: [address] [place] [address] Payer ID:[id number] (NAIC) Group ID:[id number] Type:PPO Address: [facility] [address] [place] [address] MEDICARE PART A & B [facility] Member Subscriber Plan / Payer (Ef fective 2000-Present) Name:Julia Malik Relation to Subscriber:Spouse Name:HELENAREBECCA Date of :1951 (Home) Address: [address] [place] [address] Payer ID:[id number] (NAIC) Group ID:[id number] Type:PPO Address: [facility] [address] [place] [address] Advance Directives For more information, please contact: [phone] (9AM - 5PM [facility], Saturday-Saturday) Documents on File Type Date Recorded Patient Harbor Department Manager Expl anation Healthcare Proxy 09/14/2024 3:49 PM Care Teams Ladies' Locker Room Attendant Relationship Specialty Start Date End Date Jens Solano MD PCP - General Internal Medicine 01/07/19 Additional Source Comments The information contained in this document represents components of the legal health record. It is not the complete legal health record.[facility]
--- OUTSIDE RECORDS SUMMARY | 2025-05-26 16:24 | XMS_ITS | Encounter Summary ---
Author Organization [facility] Address [address] [facility] [address] [place] [address] Phone Care Team Providers Care Occupational Health Physiotherapist Name Role Phone Jens Solano MD Primary Care Provider + Encounter Details Date Type Department Care Team (Late st Contact Info) Description 09/07/2024 Procedure Pass [facility] PERIOP DEPT [address] [place] [phone] Social History Tobacco Use Types Packs/Day Years [...] PM EDT Evaluation [facility] at [address] [address] Maxwell Harkins [address] [place] [address] [email or web address] 06/24/2025 9:00 AM EDT Evaluation [facility] at [address] [address] Kasi Ferraro AuD [address] [place] [address] [email or web address] 09/18/2025 4:30 PM EST Evaluation [facility] at [address] [address] Maxwell Harkins [address] [place] [address] [email or web address] documented as of this encounter Visit Diagnoses Not on filedocumented in this encounter Care Teams Occupational Health Physiotherapist Relationship Specialty Start Date End Date Jens Solano MD PCP - General Internal Medicine 01/07/19 documented as of this encounter Additional Source Comments The information contained in this document represents components of the legal health record. It is not the complete legal health record.[facility]
--- OUTSIDE RECORDS SUMMARY | 2025-05-26 16:24 | XMS_ITS | Encounter Summary ---
Author Organization [facility] Address 399 [facility] [address] [place] [address] Phone Care Team Providers Care Layout Designer Name Role Phone Jens Solano MD Primary Care Provider + Encounter Details Date Type Department Care Team (Latest Contact Info) Description 01/07/2019 Transcribe Orders [facility] Laboratory [address] [place] [address] Prabhakar Carney MD [facility] [address] [address] Other androgenic alopecia (Primary Dx) Social History [...] PM EDT Evaluation [facility] at [address] [address] Maxwell Harkins [address] [place] [address] [email or web address] 06/24/2025 9:00 AM EDT Evaluation [facility] at [address] [address] Kasi Ferraro AuD [address] [place] [address] [email or web address] 09/18/2025 4:30 PM EST Evaluation [facility] at [facility] [address] [facility] [address] [place] [address] Maxwell Harkins [address] [place] [address] [email or web address] documented as of this encounter Results * Iron (01/07/2019 12:43 PM EDT) IRON 86 30 - 160 ug/dL [facility] Blood 01/07/2019 12:4 3 PM EDT 01/07/2019 12:46 PM EDT us Prabhakar Carney MD LAB BLOOD ORDERABLES Fin al Result [address] [address] * Ferritin (01/07/2019 12:43 PM EDT) FERRITIN 146 13 - 150 ug/L [facility] Blood 01/07/2019 12:4 3 PM EDT 01/07/2019 12:46 PM EDT us Prabhakar Carney MD LAB BLOOD ORDERABLES Fin al Result [address] [address] * CBC (01/07/2019 12:43 PM EDT) WBC 5.80 3.40 - 11.20 K/uL [facility] RBC 4.32 3.80 - 4.80 M/uL [facility] HGB 12.6 12.0 - 15.0 g/dL [facility] HCT 39.4 36.0 - 46.0 % [facility] PLT 225 130 - 400 K/uL [facility] MCV 91.2 79.0 - 98.0 fL [facility] MCH 29.2 27.0 - 34.8 pg [facility] MCHC 32.0 31.5 - 36.0 g/dL [facility] RDW 12.7 10.8 - 14.6 % [facility] MPV 10.8 9.4 - 12.4 fl [facility] NRBC 0.00 0.00 /100 WBCs [facility] ABSOLUTE NRBC 0.00 0.00 K/uL [facility] Blood 01/07/2019 12:4 3 PM EDT 01/07/2019 12:46 PM EDT us Prabhakar Carney MD LAB BLOOD ORDERABLES Fin al Result [facility] [address] [place] [address] documented in this encounter Visit Diagnoses Diagnosis Other androgenic alopecia- Primary documented in this encounter Care Teams Layout Designer Relationship Specialty Start Date End Date Jens Solano MD PCP - General Internal Medicine 01/07/19 documented as of this encounter Additional Source Comments The information contained in this document represents components of the legal health record. It is not the complete legal health record.[facility]
--- OUTSIDE RECORDS SUMMARY | 2025-05-26 16:24 | XMS_ITS | Clinical Summary ---
Author Organization [facility] Address [address] [place] [address] Care Team Providers Care Business Technology Architect Name Role Phone Wilian Bergeron Primary Care [...] to complete [place] [address] [facility] FEDERAL Member Subscriber Plan / Payer (Ef fective 2024-Present) Name:Julia Hall Relation to Subscriber:Spouse Name:REBECCA HALL Date of :1951 (Home) Address: [address] [place] [address] [place] [address] Payer ID:[id number] (NAIC) Group ID:[id number] Type:Not on file Address: [address] [place] [address] MEDICARE Care Teams Business Technology Architect Relationship Specialty Start Date End Date Wilian Bergeron [address] [place], [place] [phone] PCP - General Internal Medicine 02/05/25
== END 2025-05-26 12:58 | disposition home or self-care (01) ==
LOC: HO.CT 12:57
PROVIDERS: PCP Internal Medicine; Visit Provider Internal Medicine
DX: R10.84 Generalized abdominal pain (principal); R19.4 Change in bowel habit
CPT/HCPCS: 74177; 82565; Q9967

== ENCOUNTER → 2025-05-26 15:01 | Outpatient (BNV) | payer MEDICARE, BC, SELFPAY | PROVIDERS: PCP Internal Medicine; Visit Provider Radiology Diagnostic Radiology | DX: R19.5 Other fecal abnormalities (principal) | CPT/HCPCS: 74177 ==

== ENCOUNTER 2025-05-28 14:49 | Outpatient (AMB) | payer MEDICARE, BC, SELFPAY ==
--- OUTSIDE RECORDS SUMMARY | 2024-06-17 | XMS_ITS | Encounter Summary ---
Author Organization [facility] Address [address] [facility] [address] [place] [phone] Phone Care Team Providers Care Hand Iii Cutter Name Role Phone Jens Solano MD Primary Care Provider + Encounter Details Date Type Department Care Team (Late st Contact Info) Description 06/17/2024 Hospital Encounter [facility] [address] [place] [address] Bipin Coburn MD, MS [address] [place] [address] [email or web address] [email or web address] Social History Tobacco Use Types Packs/Day Years [...] Info) Description 06/09/2025 4:00 PM EDT Evaluation [facility] at [address] [address] Maxwell Harkins [address] [place] [phone] [email or web address] 06/24/2025 9:00 AM EDT Evaluation [facility] at [address] [address] Kasi Ferraro AuD [address] [place] [phone] [email or web address] 09/18/2025 4:30 PM EST Evaluation [facility] at [address] [address] Maxwell Harkins [address] [place] [phone] [email or web address] documented as of this encounter Procedures [...] on filedocumented in this encounter Care Teams Hand Iii Cutter Relationship Specialty Start Date End Date Jens Solano MD PCP - General Internal Medicine 01/07/19 documented as of this encounter Additional Source Comments The information contained in this document represents components of the legal health record. It is not the complete legal health record.[facility]
--- OUTSIDE RECORDS SUMMARY | 2024-06-17 00:05 | XMS_ITS | Encounter Summary ---
Author Organization [facility] Address [address] [place] [address] Phone Care Team Providers Care Geothermal Powerplant Mechanic Helper Name Role Phone Jens Solano MD Primary Care Provider + Encounter Details Date Type Department Care Team (Late st Contact Info) Description 06/17/2024 12:05 AM EDT Hospital Encounter [facility] [address] [place] [phone] Bipin Coburn MD, MS [address] [place] [address] [email or web address] Social History Tobacco Use Types Packs/Day Years [...] Evaluation [facility] at [address] [address] Maxwell Harkins [address] [place] [phone] Yanira@[facility] 06/24/2025 9:00 AM EDT Evaluation [facility] at [address] [address] Kasi Ferraro AuD [address] [place] [phone] Rashaun@[facility] 09/18/2025 4:30 PM EST Evaluation [facility] at [address] [address] Maxwell Harkins [address] [place] [phone] Yanira@[facility] documented as of this encounter Procedures [...] on filedocumented in this encounter Care Teams Geothermal Powerplant Mechanic Helper Relationship Specialty Start Date End Date Jens Solano MD PCP - General Internal Medicine 01/07/19 documented as of this encounter Additional Source Comments The information contained in this document represents components of the legal health record. It is not the complete legal health record.[facility]
--- OUTSIDE RECORDS SUMMARY | 2025-05-28 14:51 | XMS_ITS | Encounter Summary ---
Author Organization [facility] Address [address] [facility] [address] [place] [address] Phone Care Team Providers Care Webbing Tacker Name Role Phone Jens Solano MD Primary Care Provider + Encounter Details Date Type Department Care Team (Latest Contact Info) Description 01/07/2019 Transcribe Orders [facility] Laboratory [address] [place] [address] Prabhakar Carney MD [facility] [address] Other androgenic alopecia (Primary Dx) Social History [...] PM EDT Evaluation [facility] at [address] [address] Maxwell Harkins [address] [place] [address] [email or web address] 06/24/2025 9:00 AM EDT Evaluation [facility] at [address] [address] Kasi Ferraro AuD [address] [place] [address] [email or web address] 09/18/2025 4:30 PM EST Evaluation [facility] [address] [facility] [address] [place] [address] Maxwell Harkins [address] [place] [address] [email or web address] documented as of this encounter Results * Iron (01/07/2019 12:43 PM EDT) IRON 86 30 - 160 ug/dL [facility] Blood 01/07/2019 12:4 3 PM EDT 01/07/2019 12:46 PM EDT us Prabhakar Carney MD LAB BLOOD ORDERABLES Fin al Result [address] [address] * Ferritin (01/07/2019 12:43 PM EDT) FERRITIN 146 13 - 150 ug/L [facility] Blood 01/07/2019 12:4 3 PM EDT 01/07/2019 12:46 PM EDT us Prabhakar Carney MD LAB BLOOD ORDERABLES Fin al Result [address] [address] * CBC (01/07/2019 12:43 PM EDT) WBC 5.80 3.40 - 11.20 K/uL [facility] RBC 4.32 3.80 - 4.80 M/uL [facility] HGB 12.6 12.0 - 15.0 g/dL [facility] HCT 39.4 36.0 - 46.0 % [facility] PLT 225 130 - 400 K/uL [facility] MCV 91.2 79.0 - 98.0 fL [facility] MCH 29.2 27.0 - 34.8 pg [facility] MCHC 32.0 31.5 - 36.0 g/dL [facility] RDW 12.7 10.8 - 14.6 % [facility] MPV 10.8 9.4 - 12.4 fl [facility] NRBC 0.00 0.00 /100 WBCs [facility] ABSOLUTE NRBC 0.00 0.00 K/uL [facility] Blood 01/07/2019 12:4 3 PM EDT 01/07/2019 12:46 PM EDT us Prabhakar Carney MD LAB BLOOD ORDERABLES Fin al Result [facility] [address] [place] [address] documented in this encounter Visit Diagnoses Diagnosis Other androgenic alopecia- Primary documented in this encounter Care Teams Webbing Tacker Relationship Specialty Start Date End Date Jens Solano MD PCP - General Internal Medicine 01/07/19 documented as of this encounter Additional Source Comments The information contained in this document represents components of the legal health record. It is not the complete legal health record.[facility]
--- OUTSIDE RECORDS SUMMARY | 2025-05-28 14:51 | XMS_ITS | Encounter Summary ---
Author Organization [facility] Address [address] [facility] [address] [place] [address] Phone Care Team Providers Care Aircraft Fueler Name Role Phone Jens Solano MD Primary Care Provider + Encounter Details Date Type Department Care Team (Late st Contact Info) Description 09/07/2024 Procedure Pass [facility] [address] [place] [address] Social History Tobacco Use Types Packs/Day Years [...] PM EDT Evaluation [facility] at [address] [address] Maxwell Harkins [address] [place] [address] [email or web address] 06/24/2025 9:00 AM EDT Evaluation [facility] at [address] [address] Kasi Ferraro AuD [address] [place] [address] [email or web address] 09/18/2025 4:30 PM EST Evaluation [facility] at [address] [address] Maxwell Harkins [address] [place] [address] [email or web address] documented as of this encounter Visit Diagnoses Not on filedocumented in this encounter Care Teams Aircraft Fueler Relationship Specialty Start Date End Date Jens Solano MD PCP - General Internal Medicine 01/07/19 documented as of this encounter Additional Source Comments The information contained in this document represents components of the legal health record. It is not the complete legal health record.[facility]
--- OUTSIDE RECORDS SUMMARY | 2025-05-28 14:51 | XMS_ITS | Clinical Summary ---
Author Organization [facility] Address [address] [address] Phone Care Team Providers Care Shipping Coordinator Name Role Phone Jens Solano MD Primary [...] EDT Evaluation [facility] at [address] [place] [address] Maxwell Harkins Sensorineural hearing loss (SNHL) of both ears (Primary Dx); Tinnitus of both ears 05/14/2025 Orders Only [facility] General [facility] [address] [place] [address] JuárezDelores Tinnitus, unspecified laterality (Primary Dx) 04/30/2025 8:00 AM EDT Evaluation [facility] at [address] [place] [address] Kasi Ferraro, Scotty Harkins Maxwell Carlos Tinnitus of both ears (Primary Dx); Sensorineural hearing loss (SNHL) of both ears 04/20/2025 Orders Only [facility] Otolaryngology General LW [address] [place] [address] JuárezNellieDelores Tinnitus, unspecified laterality (Primary Dx) from [...] Upcoming Encounters Date Type Department Care Team ([facility] st Contact Info) Description 06/09/2025 4:00 PM EDT Evaluation [facility] at [address] [address] Maxwell Harkins [address] [place] [address] [email or web address] 06/24/2025 9:00 AM EDT Evaluation [facility] at [address] [address] Kasi Ferraro AuD [address] [place] [address] [email or web address] 09/18/2025 4:30 PM EST Evaluation [facility] at [address] [address] Maxwell Harkins [address] [place] [address] [email or web address] Health Maintenance Due Date Last Done Comments [...] this topic Medical Devices Implanted Type Area Sole Scraper Device Identifier Shelf Expiration Date Model / [...] Months Insurance MEDICARE [facility] Member Subscriber Plan / Payer ( fective 2000-Present) Name:Julia Malik Relation to Subscriber:Spouse Name:REBECCA MALIK Date of :1951 (Home) Address: [address] [place] [address] Payer ID:[id number] (NAIC) Group ID:[id number] Type:PPO Address: [place] [address] MEDICARE PART A & B [facility] Member Subscriber Plan / Payer ( fective 2000-Present) Name:Julia Malik Relation to Subscriber:Spouse Name:REBECCA MALIK Date of :1951 (Home) Address: [address] [place] [address] Payer ID:[id number] (NAIC) Group ID:[id number] Type:PPO Address: [place] [address] MEDICARE PART A & B [facility] Member Subscriber Plan / Payer ( fective 2000-Present) Name:Julia Malik Relation to Subscriber:Spouse Name:REBECCA MALIK Date of :1951 (Home) Address: [address] [place] [address] Payer ID:[id number] (NAIC) Group ID:[id number] Type:[facility] Address: [facility] [address] [place] [address] MEDICARE PART A & B [facility] Member Subscriber Plan / Payer (Ef fective 2000-Present) Name:Julia Malik Relation to Subscriber:Spouse Name:REBECCA MALIK Date of :1951 (Home) Address: [address] [place] [address] Payer ID:[id number] (NAIC) Group ID:[id number] Type:PPO Address: [id number] [place] [address] MEDICARE PART A & B [facility] Member Subscriber Plan / Payer (Ef fective 2000-Present) Name:Julia Malik Relation to Subscriber:Spouse Name:REBECCA MALIK Date of :1951 (Home) Address: [address] [place] [address] Payer ID:[id number] (NAIC) Group ID:[id number] Type:PPO Address: [address] [place] [address] [place] [address] MEDICARE PART A & B [facility] Member Subscriber Plan / Payer ( fective 2000-Present) Name:Julia Malik Relation to Subscriber:Spouse Name:REBECCA MALIK Date of :1951 (Home) Address: [address] [place] [address] Payer ID:[id number] (NAIC) Group ID:[id number] Type:PPO Address: [facility] [id number] [place] [address] MEDICARE PART A & B [facility] Member Subscriber Plan / Payer ( fective 2000-Present) Name:Julia Malik Relation to Subscriber:Spouse Name:REBECCA MALIK Date of :1951 (Home) Address: [address] [place] [address] Payer ID:[id number] (NAIC) Group ID:[id number] Type:PPO Address: [id number] [place] [address] MEDICARE PART A & B [facility] Member Subscriber Plan / Payer (Ef fective 2000-Present) Name:Julia Malik Relation to Subscriber:Spouse Name:REBECCA MALIK Date of :1951 (Home) Address: [address] [place] [address] Payer ID:[id number] (NAIC) Group ID:[id number] Type:PPO Address: [facility] [address] [place] [address] MEDICARE PART A & B [facility] Member Subscriber Plan / Payer (Ef fective 2000-Present) Name:Julia Malik Relation to Subscriber:Spouse Name:HELENAREBECCA Date of :1951 (Home) Address: [address] [place] [address] Payer ID:[id number] (NAIC) Group ID:[id number] Type:PPO Address: [facility] [id number] [place] [address] Advance Directives For more information, please contact: [phone] (9AM - 5PM [facility], Saturday-Saturday) Documents on File Type Date Recorded 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 It is not the complete legal health record.[facility]
--- OUTSIDE RECORDS SUMMARY | 2025-05-28 14:51 | XMS_ITS | Clinical Summary ---
Author Organization [facility] Address [address] [place] [address] Care Team Providers Care Other Sales Support Worker Name Role Phone Wilian Bergeron Primary Care Provider [phone] Social History Tobacco Use Types Packs/Day Years [...] to complete this [place] [address] [facility] FEDERAL Member Subscriber Plan / Payer (Ef fective 2024-Present) Name:Julia Hall Relation to Subscriber:Spouse Name:REBECCA HALL Date of :1951 (Home) Address: [address] [place] [address] [place] [address] Payer ID:[id number] (NAIC) Group ID:[id number] Type:Not on file Address: [address] [place] [address] MEDICARE Care Teams Other Sales Support Worker Relationship Specialty Start Date End Date Wilian Bergeron [address] [place], [place] [phone] PCP - General Internal Medicine 02/05/25
--- OUTSIDE RECORDS SUMMARY | 2025-05-28 14:51 | XMS_ITS | Patient Health Record ---
Author Organization [facility] Address [address] [place] [address] Care Team Providers Care Crop Specialist Name Role Phone WILIAN BETANCOURT Primary Care Provider Zi Lehman [phone] Allergies Allergen (clinical drug ingredient) Drug/Non Drug Allergy documented on EMR Reaction Allergy Type Onset Date Status Penicillin Unknown Drug Allergy Active Substance with sulfonamide structure and antibacterial mechanism of action (substance) Sulfa Antibiotics severe Drug Allergy Active Results Component Value Reference Range Notes Creatinine Reviewed date:04/21/2025 06:09:00 PM Interpretation: Performing Lab:[facility], [address] [place] [phone] Notes/Report: Creatinine 0.65 0.5-1.4 mg/dL Estimated Glomerular Filt Rate > 60 Chronic Kidney Disease: Estimated GFR < 60 mL/min/1.73m2 Severe Kidney Disease: Estimated GFR < 15 mL/min/1.73m2 Amylase Reviewed date:04/21/2025 06:09:06 PM Interpretation: Performing Lab:[facility], [address] [place] [phone] Notes/Report: Amylase 40 28-100 U/L Lipase Reviewed date:04/21/2025 06:09:25 PM Interpretation: Performing Lab:[facility], [address] [place] [phone] Notes/Report: Lipase 36 8-78 U/L Complete Blood Count Auto Di ff Reviewed date:04/21/2025 06:08:40 PM Interpretation: Performing Lab:[facility], [address] [place] [phone] Notes/Report: White Blood Count 4.7 4.8-10.8 X10*3/uL [...] Panel Reviewed date:04/21/2025 06:08:27 PM Interpretation: Performing Lab:[facility], [address] [place] [phone] Notes/Report: Bilirubin Total 0.6 0.0-1.0 mg/dL Bilirubin Direct 0.2 0.0-0.5 mg/dL Aspartate Amino Transferase 23 5-31 U/L Alanine Aminotransferase 18 0-31 U/L Total Protein 7.0 6.5-8.0 g/dL Albumin Level 4.5 3.5-5.0 g/dL Alkaline Phosphatase 77 39-117 U/L Blood Urea Nitrogen Reviewed date:04/21/2025 06:08:17 PM Interpretation: Performing Lab:[facility], [address] [place] [phone] Notes/Report: Blood Urea Nitrogen 16 9-16 mg/dL Immunoglobulin A Reviewed date:04/28/2025 12:17:04 AM Interpretation: Performing Lab:[facility], [address] [place] [phone] Notes/Report: Immunoglobulin A 322 70-320 mg/dL THIS TEST WAS PERFORMED AT: [email or web address] [address] [place] [phone] KWAME SANTA MD Transglutaminase Ab IgG Reviewed date:04/28/2025 12:16:25 AM Interpretation: Performing Lab:[facility], [address] [place] [phone] Notes/Report: Transglutaminase Ab IgG <1.0 Value Interpretation ----- <15.0 Antibody not detected > or = 15.0 Antibody detected THIS TEST WAS PERFORMED AT: [email or web address] [address] [place] [phone] KWAME SANTA MD Transglutaminase IgA Reviewed date:04/28/2025 12:16:14 AM Interpretation: Performing Lab:[facility], [address] [place] [phone] Notes/Report: Transglutaminase IgA <1.0 Value Interpretation ----- <15.0 Antibody not detected > or = 15.0 Antibody detected THIS TEST WAS PERFORMED AT: [email or web address] [address] [place] [phone] KWAME SANTA MD Gliadin Ab Panel Reviewed date:04/28/2025 12:16:03 AM Interpretation: Performing Lab:[address] [address] Notes/Report: Gliadin Deamidated IgA Ab 1.1 Value Interpretation ----- <15.0 Antibody not detected > or = 15.0 Antibody detected Gliadin Deamidated IgG Ab <1.0 Value Interpretation ----- <15.0 Antibody not detected > or = 15.0 Antibody detected THIS TEST WAS PERFORMED AT: [email or web address] [address] [place] [phone] KWAME SANTA MD Endomysial IgA rflx Titer Reviewed date:04/28/2025 12:15:49 AM Interpretation: Performing Lab:[facility], [address] [place] [phone] Notes/Report: Endomysial IgA Antibody Negative Negative THIS TEST WAS PERFORMED AT: [facility]/[address] [address] MUKESH MIRAMONTES MD,PHD Endomysial Titer TNP CT abdomen pelvis w con (Not yet reviewed by provider) Interpretation: Performing Lab: Notes/Report: [address] [address] [address] Scan Report Signed Patient: Verenice Malik MR#: [id number] 2 : 1950 Acct:[id number] Age/Sex: 74 / F ADM Date: 05/26/25 Loc: HO.CT Attending Dr: Zi Lange MD Ordering Physician: Zi Lange MD Date of Service: 05/26/25 Procedure(s): CT abdomen pelvis w IV con Accession Number(s): [id number] cc: Wilian Betancourt MD; Zi Lange MD Report Number: [id number]: Total DLP = 462.00 mGy-cm Reason for [...] 05/26/25 1559 DD/ 1501 TD/TT: 05/26/25 1536 Market Research Executive: Creatinine GFR POC Reviewed date:05/27/2025 06:50:44 PM Interpretation: Performing Lab:[facility], [address] [place] [phone] Notes/Report: [id number] 0.68 >60 1509 HO.LARG Creatinine POC 0.7 [...] Status Risk Notes Problem Colon cancer screening (415683183) Colon cancer screening (Z12.11) Active confirmed Problem Change in bowel habit (76122416) Change in bowel habits (R19.4) Active confirmed Problem Generalized abdominal pain (224991212) Abdominal discomfort, generalized (R10.84) Active confirmed Vital Signs Blood pressure diastolic 77 mm Hg 04/20/2025 Height 63 in 04/20/2025 Blood pressure systolic 111 mm Hg 04/20/2025 Weight 175 lbs 04/20/2025 BMI 31 kg/m2 04/20/2025 Procedures Procedure Date Ordered Date Performed Result Body Sit e COLONOSCOPY 04/20/2025 N/A Encounters Encounter Location Date Provider Diagnosis [facility] [address] [place] [address] 04/20/2025 Zi Lange Change in bowel habi ts R19.4 ; Colon cancer screening Z12.11 and Abdominal discomfort, generalized R10.84 [facility] [address] [place] [address] 04/22/2025 Zi Anisa Assessments Encounter Date Diagnosis (ICD Code) Assessment [...] 04/20/2025 CT abdomen pelvis w con 05/26/2025 Next Appt Details Provider Name:Zi Lange , 07/14/2025 11:30:00 AM, [address] [place] [address] , [place], [place], [phone], Insurance Providers Payer Name Payer Address Payer Phone Subscriber Number Group Number Insured Name Patient Relationship to Insured Coverage Start Date Coverage End Date MEDICARE OF [place] [address] [place] [address] [id number] VERENICE MALIK Self - patient is the insured [address] [facility] [address] [place] [address] [id number] VERENICE MALIK Self - patient is the insured Medical (General) History Medical History History ICD Code Denies [place],DM,CVA,Lung disease,renal dise ase Depression/Anxiety IBS 3 negative colonoscopies in [place] with her most recent one in October 2016 by Surgical History Surgery Date(Month/Year) Oopherectomy bilateral Appendectomy CCY Hernia repair x 3 section x 6
[2025-05-28 14:52] VITALS: BP 140/80; PULSE 71; TEMP 36.4; O2SAT 98; BMI 31.6
--- NOTE | 2025-05-28 14:52 | AM.OFFWIN_ITS ---
Intake Vital Signs 05/28/25 14:52 Height 5 ft 2.8 in Weight 177 lb BMI 31.6 BP 140/80 H Blood Pressure Location Rt brachial Position Sitting Pulse 71 Pulse Source Pulse Oximeter Temp 97.6 F Temp Source Oral Pulse Oximetry (%) 98 Oxygen Delivery Method Room Air Intake Visit Reasons: ep knee pain both knees Patient Tobacco Use Status: Never used Tobacco Allergies sulfamethoxazole (From Bactrim) Allergy (Intermediate, Verified 05/28/25 14:53) Rash trimethoprim (From Bactrim) Allergy (Intermediate, Verified 05/28/25 14:53) Rash morphine (MORPHINE) Allergy (Unknown, Verified 05/28/25 14:53) UNKNOWN Penicillins (PENICILLINS) Allergy (Unknown, Verified 05/28/25 14:53) UNKNOWN Do you need a note to return to daycare/school/sports/work: No HPI HPI Comments History of Present Illness Details This is a 74-year-old female presenting for evaluation of right knee pain. Patient states that her son replaced her deck approximately 10 days ago and she was used to taking a step down from her kitchen onto her deck. Her new neck does not have that one step down and is of equal level with her kitchen. Patient states 1 week ago she stepped from her kitchen onto her deck and stepped very hard onto the deck surface because she was anticipating taking a step down. Patient is unaware if she twisted her knee but has had pain in her anterior and medial right knee since that time. Patient has used ice and 200 mg of ibuprofen twice daily, intermittently without relief of her discomfort. Patient states that she continues to have pain when ambulating but denies any direct trauma to her right anterior knee. [facility] Medical History Elevated blood pressure reading Class 1 obesity with body mass index (BMI) of 31.0 to 31.9 in adult Anxiety History of mammogram (~10/12/24) History of sinusitis Tinnitus Fever of unknown origin Depression Surgical History History of colonoscopy H/O bone graft History of sinus surgery History of nasal surgery History of dental surgery Social History Household Members: Significant Other Housing: House Do you presently have visiting nurse or other home services: No Alcohol intake: current Alcohol intake frequency: holidays/special occasions only Patient Tobacco Use Status: Never used Tobacco e-Cigarette/Vaping Use: Never Used Second Hand Smoke Exposure: No service: No Current occupational status: retired Cognitive needs: No Hearing needs: No Vision needs: Yes (reading Glasses) Review of Systems Const All systems reviewed & are unremarkable except as noted in HPI and below Denies chills, Denies fatigue and Denies fever(s) Eyes Reports no additional complaints ENT Reports no additional complaints Card Reports no additional complaints Resp Reports no additional complaints Musc Denies deformity, Reports arthralgias, Denies joint swelling and Denies muscle cramps Skin/Breast Reports system reviewed and no additional complaints, except as documented Neuro Reports no additional complaints Psych Reports no additional complaints Endo Denies fatigue Vasyl/Lymph Reports no additional complaints Physical Exam Vital Signs: Last Vital Signs Temp 97.6 F 05/28/25 14:52 Pulse 71 05/28/25 14:52 BP 140/80 H 05/28/25 14:52 Pulse Ox 98 05/28/25 14:52 Oxygen Delivery Method Room Air 05/28/25 14:52 BMI result Body Mass Index 31.6 Const General: cooperative, healthy appearing, comfortable, no acute distress, well developed, alert, awake and Physically active; No acute distress Nutritional Appearance: well nourished Orientation/consciousness: patient oriented x3 Limitations: no limitations (ambulating independently) Skin Other: No erythema, edema or warmth to touch upon examination of the right knee. General skin exam: no rashes or lesions noted Lesions: no lesions Neuro General: patient oriented x3 Extrem General: Yes normal to inspection, Yes no calf tenderness, No calf tenderness, No edema and No muscle atrophy Right lower extremity: full ROM (right knee) and knee Details: abnormal to inspection, tenderness Location: of the medial joint line; not of the lateral joint line and not of the lateral joint line and normal ROM (passive ROM intact, mild pain with varus stress of right knee); no ecchymosis and no crepitus; no edema and joint enlargement noted Psych Appearance: grossly normal Mental Status: mental status grossly normal Insight: Good insight present (Psych) Judgement: Good judgement present (Psych) Assessment & Plan Assessment & Plan (1) Strain of right knee: Comment: Patient is evaluated. Patient's history coupled with her examination is consistent with a right knee strain with possible inadequate anti-inflammatory treatment prior to this encounter. Patient will be discharged home with Naprosyn and instructed to follow up with Orthopedics as an outpatient. Code(s): S86.911A - Strain of unspecified muscle(s) and tendon(s) at lower leg level, right leg, initial encounter Qualifiers: Encounter type: initial encounter Qualified Code(s): S86.911A - Strain of unspecified muscle(s) and tendon(s) at lower leg level, right leg, initial encounter Plan: Naprosyn 500 mg twice daily times 7-10 days, Júnior wrap is provided for compression in the office and she is encouraged to obtain a neoprene knee sleeve to wear daily. Orders: Referrals Orthopedics Referral M25.561 - Pain in right knee Medications: New naproxen (Naprosyn) 500 mg PO BID 20 tabs 0RF Coding Level of Care Code Est Pt Level 3 (29809) Diagnoses Strain of right knee, initial encounter S86.911A Encounter type: initial encounter Time Spent (min) 20
== END 2025-05-28 15:35 | disposition home or self-care (01) ==
PROVIDERS: PCP Internal Medicine; Visit Provider Physician Assistant
DX: S86.911A Strain of unspecified muscle(s) and tendon(s) at lower leg level, right leg, initial encounter (principal)

== ENCOUNTER → 2025-05-28 14:49 | Outpatient (BNVA) | payer MEDICARE, BC, SELFPAY | PROVIDERS: PCP Internal Medicine; Visit Provider Physician Assistant | DX: M25.561 Pain in right knee (principal); S86.911A Strain of unspecified muscle(s) and tendon(s) at lower leg level, right leg, initial encounter; X58.XXXA Exposure to other specified factors, initial encounter; Y93.9 Activity, unspecified; Y92.9 Unspecified place or not applicable; Y99.9 Unspecified external cause status | CPT/HCPCS: 99212 ==

== ENCOUNTER 2025-06-29 09:57 | Outpatient (AMB) | payer MEDICARE, BC, SELFPAY ==
--- OUTSIDE RECORDS SUMMARY | 2025-06-29 11:27 | XMS_ITS | Patient Health Record ---
Author Organization [facility] Address [address] [place] [address] Care Team Providers Care Filter Tank Operator Name Role Phone WILIAN BETANCOURT Primary Care Provider Zi Lehman [phone] Allergies Allergen (clinical drug ingredient) Drug/Non Drug Allergy documented on EMR Reaction Allergy Type Onset Date Status Penicillin Unknown Drug Allergy Active Substance with sulfonamide structure and antibacterial mechanism of action (substance) Sulfa Antibiotics severe Drug Allergy Active Results Component Value Reference Range Notes Creatinine Reviewed date:04/21/2025 06:09:00 PM Interpretation: Performing Lab:[facility], [address] [place] [phone] Notes/Report: Creatinine 0.65 0.5-1.4 mg/dL Estimated Glomerular Filt Rate > 60 Chronic Kidney Disease: Estimated GFR < 60 mL/min/1.73m2 Severe Kidney Disease: Estimated GFR < 15 mL/min/1.73m2 Amylase Reviewed date:04/21/2025 06:09:06 PM Interpretation: Performing Lab:[facility], [address] [place] [phone] Notes/Report: Amylase 40 28-100 U/L Lipase Reviewed date:04/21/2025 06:09:25 PM Interpretation: Performing Lab:[facility], [address] [place] [phone] Notes/Report: Lipase 36 8-78 U/L Complete Blood Count Auto Di ff Reviewed date:04/21/2025 06:08:40 PM Interpretation: Performing Lab:[facility], [address] [place] [phone] Notes/Report: White Blood Count 4.7 4.8-10.8 X10*3/uL [...] Reviewed date:04/21/2025 06:08:27 PM Interpretation: Performing Lab:[facility], [address] [place] [phone] Notes/Report: Bilirubin Total 0.6 0.0-1.0 mg/dL Bilirubin Direct 0.2 0.0-0.5 mg/dL Aspartate Amino Transferase 23 5-31 U/L Alanine Aminotransferase 18 0-31 U/L Total Protein 7.0 6.5-8.0 g/dL Albumin Level 4.5 3.5-5.0 g/dL Alkaline Phosphatase 77 39-117 U/L Blood Urea Nitrogen Reviewed date:04/21/2025 06:08:17 PM Interpretation: Performing Lab:[facility], [address] [place] [phone] Notes/Report: Blood Urea Nitrogen 16 9-16 mg/dL Immunoglobulin A Reviewed date:04/28/2025 12:17:04 AM Interpretation: Performing Lab:[facility], [address] [place] [phone] Notes/Report: Immunoglobulin A 322 70-320 mg/dL THIS TEST WAS PERFORMED AT: [facility] [address] [place] [phone] KWAME SANTA MD Transglutaminase Ab IgG Reviewed date:04/28/2025 12:16:25 AM Interpretation: Performing Lab:[facility], [address] [place] [phone] Notes/Report: Transglutaminase Ab IgG <1.0 Value Interpretation ----- <15.0 Antibody not detected > or = 15.0 Antibody detected THIS TEST WAS PERFORMED AT: [facility] [address] [place] [phone] KWAME SANTA MD Transglutaminase IgA Reviewed date:04/28/2025 12:16:14 AM Interpretation: Performing Lab:[facility], [address] [place] [phone] Notes/Report: Transglutaminase IgA <1.0 Value Interpretation ----- <15.0 Antibody not detected > or = 15.0 Antibody detected THIS TEST WAS PERFORMED AT: [facility] [address] [place] [phone] KWAME SANTA MD Gliadin Ab Panel Reviewed date:04/28/2025 12:16:03 AM Interpretation: Performing Lab:[address] [phone] Notes/Report: Gliadin Deamidated IgA Ab 1.1 Value Interpretation ----- <15.0 Antibody not detected > or = 15.0 Antibody detected Gliadin Deamidated IgG Ab <1.0 Value Interpretation ----- <15.0 Antibody not detected > or = 15.0 Antibody detected THIS TEST WAS PERFORMED AT: [facility] [address] [place] [phone] KWAME SANTA MD Endomysial IgA rflx Titer Reviewed date:04/28/2025 12:15:49 AM Interpretation: Performing Lab:[facility], [address] [place] [phone] Notes/Report: Endomysial IgA Antibody Negative Negative THIS TEST WAS PERFORMED AT: [facility]/[address] [phone] MUKESH MIRAMONTES MD,PHD Endomysial Titer TNP CT abdomen pelvis w con (Not yet reviewed by provider) Interpretation:Abnormal Performing Lab: Notes/Report: [address] [address] [address] Scan Report Signed Patient: Verenice Malik MR#: [id number] 2 : 1950 Acct:[id number] Age/Sex: 74 / F ADM Date: 05/26/25 Loc: HO.CT Attending Dr: Zi Lange MD Ordering Physician: Zi Lange MD Date of Service: 05/26/25 Procedure(s): CT abdomen pelvis w IV con Accession Number(s): [id number] cc: Wilian Betancourt MD; Zi Lange MD Report Number: [id number]: Total DLP = 462.00 mGy-cm Reason for [...] 03:59 PM EDT RP Dictated By: Dawit Mrashall MD Signed By: <Electronically signed by Dawit Palmer MD in OV> 05/26/25 1559 DD/ 1501 TD/TT: 05/26/25 1536 Director Of Oncology: Creatinine GFR POC Reviewed date:05/27/2025 06:50:44 PM Interpretation: Performing Lab:[facility], [address] [place] [phone] Notes/Report: [id number] 0.68 >60 1509 HO.LARG Creatinine POC 0.7 [...] Status Risk Notes Problem Colon cancer screening (575488593) Colon cancer screening (Z12.11) Active confirmed Problem Change in bowel habit (05826421) Change in bowel habits (R19.4) Active confirmed Problem Generalized abdominal pain (524465622) Abdominal discomfort, generalized (R10.84) Active confirmed Vital Signs Blood pressure diastolic 77 mm Hg 04/20/2025 Height 63 in 04/20/2025 Blood pressure systolic 111 mm Hg 04/20/2025 Weight 175 lbs 04/20/2025 BMI 31 kg/m2 04/20/2025 Procedures Procedure Date Ordered Date Performed Result Body Sit e COLONOSCOPY 04/20/2025 N/A Encounters Encounter Location Date Provider Diagnosis [facility] [address] [place] [address] 04/20/2025 Zi Lange Change in bowel habi ts R19.4 ; Colon cancer screening Z12.11 and Abdominal discomfort, generalized R10.84 [facility] [address] [place] [address] 04/22/2025 Zi Lange Assessments Encounter Date Diagnosis [...] Provider Name:Zi Lange , 07/14/2025 11:30:00 AM, [address] [place] [address] , [place], [place], [id number], Insurance Providers Payer Name Payer Address Payer Phone Subscriber Number Group Number Insured Name Patient Relationship to Insured Coverage Start Date Coverage End Date MEDICARE OF [place] [address] [place] [address] [id number] VERENICE MALIK Self - patient is the insured 8 [facility] [address] [place] [address] [id number] VERENICE MALIK Self - patient is the insured Medical (General) History Medical History History ICD Code Denies [place],DM,CVA,Lung disease,renal dise ase Depression/Anxiety IBS 3 negative colonoscopies in [place] with her most recent one in October 2016 by Surgical History Surgery Date(Month/Year) Oopherectomy bilateral Appendectomy CCY Hernia repair x 3 section x 6
--- OUTSIDE RECORDS SUMMARY | 2025-06-29 11:27 | XMS_ITS | Clinical Summary ---
Author Organization [facility] Address [address] [place] [address] Care Team Providers Care Aquaculture Farmer Name Role Phone Wilian Bergeron Primary Care [...] Screening 09/09/2024 Depression Screening and Follow-Up 09/09/2024 Fall Risk Screening 09/09/2024 Health Care Proxy Review 09/09/2024 Social Drivers of Health Annual Screening 09/09/2024 COVID-19 Vaccine ( season) 2025 06/13/2023, 04/29/2022, 07/05/2021, Additional history exists Influenza Vaccine (#1) 2025 07/05/2021 RSV Vaccine (60+ years old and patients) (1 - 1-dose 75+ series) 11/19/2027 Hepatitis B Vaccines Aged Out No long er eligible based on patient's age to complete this topic Insurance [facility] [employer] Member Subscriber Plan / Payer (Ef fective 2024-Present) Name:Julia Hall Relation to Subscriber:Spouse Name:REBECCA HALL Date of :1953 (Home) Address: [address] [place] [address] Payer ID:[id number] (NAIC) Group ID:[id number] Type:Not on file Address: [address] [place] [address] MEDICARE Care Teams Aquaculture Farmer Relationship Specialty Start Date End Date Wilian Bergeron [address] [place], [place] [id number] PCP - General Internal Medicine 02/05/25
--- NOTE | 2025-06-29 12:13 | AM.OFFVISNUR ---
Intake Visit Reasons: Flu vaccine Allergies sulfamethoxazole (From Bactrim) Allergy (Intermediate, Verified 05/28/25 14:53) Rash trimethoprim (From Bactrim) Allergy (Intermediate, Verified 05/28/25 14:53) Rash morphine (MORPHINE) Allergy (Unknown, Verified 05/28/25 14:53) UNKNOWN Penicillins (PENICILLINS) Allergy (Unknown, Verified 05/28/25 14:53) UNKNOWN Office Procedures Flu Questionnaire Does the patient have a severe egg allergy?: No Does the patient have severe life threatening allergies?: No Does the patient have a fever or illness today?: No Has the patient ever had Guillain-[place] Syndrome?: No Has the patient ever had any past reaction to a flu shot?: No Immunizations Fluarix [id number] (PF) 45 mcg (15 mcg x 3)/0.5 mL IM syringe Performing Provider: Wilian Bergeron MD [facility] Administered by: Merline Wood CMA on 06/29/25 12:14 Dose Route Admin Location Dispensed Lot Number Expiration Date 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 VIS Given Date VIS Provided VIS Publication Date 06/29/25 Single Vaccine 24 Eligibility Eligibility Date Funding Source Not [facility] Eligible 06/29/25 Private Assessment & Plan Assessment & Plan Orders: Orders Influenza [id number] Immunization Today Z23 - Encounter for immunization Coding
== END 2025-06-29 10:13 | disposition home or self-care (01) ==
LOC: HO.HMCSH 09:57
PROVIDERS: PCP Internal Medicine
DX: Z23 Encounter for immunization (principal)

== ENCOUNTER → 2025-06-29 09:57 | Outpatient (BNVA) | payer MEDICARE, BC, SELFPAY | PROVIDERS: PCP Internal Medicine | DX: Z23 Encounter for immunization (principal) | CPT/HCPCS: 90471; 90656 ==

== ENCOUNTER 2025-08-02 12:20 | Day surgery (SDC) | payer MEDICARE, BC, SELFPAY ==
--- OUTSIDE RECORDS SUMMARY | 2024-06-17 | XMS_ITS | Encounter Summary ---
Author Organization [facility] Address [address] [facility] [address] [place] [phone] Phone Care Team Providers Care Red Lead Burner Name Role Phone Jens Solano MD Primary Care Provider + Encounter Details Date Type Department Care Team (Late st Contact Info) Description 06/17/2024 Hospital Encounter [facility] [address] [place] [address] Bipin Coburn MD, MS [address] [place] [address] [email or web address] Social History Tobacco Use Types Packs/Day [...] Care Team (Late st Contact Info) Description 06/09/2025 4:00 PM EDT Evaluation [facility] [address] [address] Maxwell Harkins [address] [place] [phone] [email or web address] 06/24/2025 9:00 AM EDT Evaluation [facility] [address] [address] Kasi Ferraro AuD [address] [place] [phone] [email or web address] 09/18/2025 4:30 PM EST Evaluation [facility] [address] [address] Maxwell Harkins [address] [place] [phone] [email or web address] documented as of this encounter Procedures Procedure Name Priority Date/Time Associated Diagnosis Comments CT FACE OUTSIDE (NO INTERPRETATION) Routine 06/17/2024 12:00 AM EDT documented in this encounter Results * CT Face Outside (No Interpretation) (06/17/2024 12:00 AM EDT) Narrative [facility] - 08/13/2024 1:14 PM EST This study is for PACS storage only and not for interpretation. Bipin Coburn MD, MS IMG OUTSIDE IMAGING W/OUT INTERPRETATION Final Result [facility] documented in this encounter Visit Diagnoses Not on filedocumented in this encounter Care Teams Red Lead Burner Relationship Specialty Start Date End Date Jens Solano MD PCP - General Internal Medicine 01/07/19 documented as of this encounter Additional Source Comments The information contained in this document represents components of the legal health record. It is not the complete legal health record.[facility]
--- OUTSIDE RECORDS SUMMARY | 2024-06-17 00:05 | XMS_ITS | Encounter Summary ---
Author Organization [facility] Address [address] [place] [address] Phone Care Team Providers Care Barrel Raiser Helper Name Role Phone Jens Solano MD Primary Care Provider + Encounter Details Date Type Department Care Team (Late st Contact Info) Description 06/17/2024 12:05 AM EDT Hospital Encounter [facility] [address] [place] [address] Bipin Coburn MD, MS [address] [place] [address] [email or web address] Social History Tobacco Use Types Packs/Day [...] Info) Description 06/09/2025 4:00 PM EDT Evaluation [facility] [place] [address] [address] Maxwell Harkins [address] [place] [phone] Yanira@[facility] 06/24/2025 9:00 AM EDT Evaluation [facility] [place] [address] [address] Kasi Ferraro AuD [address] [place] [phone] [email or web address]@[facility] 09/18/2025 4:30 PM EST Evaluation [facility] at [address] [address] Maxwell Harkins [address] [place] [phone] Yanira@[email or web address] documented as of this encounter Procedures Procedure [...] on filedocumented in this encounter Care Teams Barrel Raiser Helper Relationship Specialty Start Date End Date Jens Solano MD PCP - General Internal Medicine 01/07/19 documented as of this encounter Additional Source Comments The information contained in this document represents components of the legal health record. It is not the complete legal health record.[facility]
--- OUTSIDE RECORDS SUMMARY | 2025-05-22 17:00 | XMS_ITS | Encounter Summary ---
Author Organization [facility] Address [address] [place] [address] Phone Care Team Providers Care Station Cleaning Porter Name Role Phone Jens Solano MD Primary Care Provider + Reason for Visit * Reason Comments Tinnitus * Hospital - Outpatient (Routine) - Closed Specialty Diagnoses / Procedures Referred By Contac t Referred To Contact Audiology Procedures COMMUNICATION NEEDS ASSESSMENT Jens Solano MD [address] [place] [address] Phone: tel: fax: Maxwell Harkins [address] [place] [address] Phone: tel: fax: mailto:[email or web address] Referral ID Status Reason Start Date Expiration Date Visits Re quested Visits Authorized [id number] Closed 05/22/2025 06/08/2025 1 1 Encounter Details Date Type Department Care Team (Late st Contact Info) Description 05/22/2025 5:00 PM EDT Evaluation [facility] at [address] [place] [address] Maxwell Harkins [address] [place] [address] [email or web address] Sensorineural hearing loss (SNHL) of both ears (Primary Dx); Tinnitus of both ears Social History Tobacco Use [...] Upcoming Encounters Date Type Department Care Team ([facility] st Contact Info) Description 06/09/2025 4:00 PM EDT Evaluation [facility] at [address] [address] Maxwell Harkins [address] [place] [address] [email or web address]@[email or web address] [email or web address] 06/24/2025 9:00 AM EDT Evaluation [facility] at [address] [address] Kasi Ferraro AuD [address] [place] [address] [email or web address] [email or web address] 09/18/2025 4:30 PM EST Evaluation [facility] at [facility] 243 [facility] Room [address] [place] [address] Maxwell Harkins [address] [place] [address] Yanira@[email or web address] [place] documented as of this encounter Visit Diagnoses Diagnosis Sensorineural hearing loss (SNHL) of both ears- Primary Tinnitus of both ears Unspecified tinnitus documented in this encounter Care Teams Station Cleaning Porter Relationship Specialty Start Date End Date Jens Solano MD PCP - General Internal Medicine 01/07/19 documented as of this encounter Additional Source Comments The information contained in this document represents components of the legal health record. It is not the complete legal health record.[facility]
--- OUTSIDE RECORDS SUMMARY | 2025-05-25 10:57 | XMS_ITS | Patient Health Record ---
Author Organization [facility] Address [address] [place] [address] Care Team Providers Care Travelers' Aid Worker Name Role Phone KRISTOPHER BETANCOURT Primary Care Provider Zi Lehman [phone] Allergies Allergen (clinical drug ingredient) Drug/Non Drug Allergy documented on EMR Reaction Allergy Type Onset Date Status Penicillin Unknown Drug Allergy Active Substance with sulfonamide structure and antibacterial mechanism of action (substance) Sulfa Antibiotics severe Drug Allergy Active Results Component Value Reference Range Notes Creatinine Reviewed date:04/21/2025 06:09:00 PM Interpretation: Performing Lab:[facility], [address] [place] [phone] Notes/Report: Creatinine 0.65 0.5-1.4 mg/dL Estimated Glomerular Filt Rate > 60 Chronic Kidney Disease: Estimated GFR < 60 mL/min/1.73m2 Severe Kidney Disease: Estimated GFR < 15 mL/min/1.73m2 Amylase Reviewed date:04/21/2025 06:09:06 PM Interpretation: Performing Lab:[facility], [address] [place] [phone] Notes/Report: Amylase 40 28-100 U/L Lipase Reviewed date:04/21/2025 06:09:25 PM Interpretation: Performing Lab:[facility], [address] [place] [phone] Notes/Report: Lipase 36 8-78 U/L Complete Blood Count Auto Di ff Reviewed date:04/21/2025 06:08:40 PM Interpretation: Performing Lab:[facility], [address] [place] [phone] Notes/Report: White Blood Count 4.7 4.8-10.8 X10*3/uL [...] Panel Reviewed date:04/21/2025 06:08:27 PM Interpretation: Performing Lab:[facility], [address] [place] [phone] Notes/Report: Bilirubin Total 0.6 0.0-1.0 mg/dL Bilirubin Direct 0.2 0.0-0.5 mg/dL Aspartate Amino Transferase 23 5-31 U/L Alanine Aminotransferase 18 0-31 U/L Total Protein 7.0 6.5-8.0 g/dL Albumin Level 4.5 3.5-5.0 g/dL Alkaline Phosphatase 77 39-117 U/L Blood Urea Nitrogen Reviewed date:04/21/2025 06:08:17 PM Interpretation: Performing Lab:[facility], [address] [place] [phone] Notes/Report: Blood Urea Nitrogen 16 9-16 mg/dL Immunoglobulin A Reviewed date:04/28/2025 12:17:04 AM Interpretation: Performing Lab:[facility], [address] [place] [phone] Notes/Report: Immunoglobulin A 322 70-320 mg/dL THIS TEST WAS PERFORMED AT: [facility] [address] [place] [phone] KWAME SANTA MD Transglutaminase Ab IgG Reviewed date:04/28/2025 12:16:25 AM Interpretation: Performing Lab:[facility], [address] [place] [phone] Notes/Report: Transglutaminase Ab IgG <1.0 Value Interpretation ----- <15.0 Antibody not detected > or = 15.0 Antibody detected THIS TEST WAS PERFORMED AT: [facility] [address] [place] [phone] KWAME SANTA MD Transglutaminase IgA Reviewed date:04/28/2025 12:16:14 AM Interpretation: Performing Lab:[facility], [address] [place] [phone] Notes/Report: Transglutaminase IgA <1.0 Value Interpretation ----- <15.0 Antibody not detected > or = 15.0 Antibody detected THIS TEST WAS PERFORMED AT: [facility] [address] [place] [phone] KWAME SANTA MD Gliadin Ab Panel Reviewed date:04/28/2025 12:16:03 AM Interpretation: Performing Lab:[address] [phone] Notes/Report: Gliadin Deamidated IgA Ab 1.1 Value Interpretation ----- <15.0 Antibody not detected > or = 15.0 Antibody detected Gliadin Deamidated IgG Ab <1.0 Value Interpretation ----- <15.0 Antibody not detected > or = 15.0 Antibody detected THIS TEST WAS PERFORMED AT: [facility] [address] [place] [phone] KWAME SANTA MD Endomysial IgA rflx Titer Reviewed date:04/28/2025 12:15:49 AM Interpretation: Performing Lab:[facility], [address] [place] [phone] Notes/Report: Endomysial IgA Antibody Negative Negative THIS TEST WAS PERFORMED AT: [employer]/[address] [phone] MUKESH MIRAMONTES MD,PHD Endomysial Titer TNP Reason [...] Status Risk Notes Problem Colon cancer screening (849236017) Colon cancer screening (Z12.11) Active confirmed Problem Change in bowel habit (19735136) Change in bowel habits (R19.4) Active confirmed Problem Generalized abdominal pain (987787142) Abdominal discomfort, generalized (R10.84) Active confirmed Vital Signs Blood pressure diastolic 77 mm Hg 04/20/2025 Height 63 in 04/20/2025 Blood pressure systolic 111 mm Hg 04/20/2025 Weight 175 lbs 04/20/2025 BMI 31 kg/m2 04/20/2025 Procedures Procedure Date Ordered Date Performed Result Body Sit e COLONOSCOPY 04/20/2025 N/A Encounters Encounter Location Date Provider Diagnosis [facility] [address] [place] [address] 04/20/2025 Zi Lange Change in bowel habi ts R19.4 ; Colon cancer screening Z12.11 and Abdominal discomfort, generalized R10.84 [facility] [address] [place] [address] 04/22/2025 Zi Lange Assessments Encounter Date Diagnosis [...] Provider Name:Zi Lange , 07/14/2025 11:30:00 AM, [address] [place] [address] , [place], [place], [id number], Insurance Providers Payer Name Payer Address Payer Phone Subscriber Number Group Number Insured Name Patient Relationship to Insured Coverage Start Date Coverage End Date MEDICARE OF [place] [address] [place] [address] [id number] VERENICE MALIK Self - patient is the insured [facility] [address] [place] [address] [phone] [id number] VERENICE MALIK Self - patient is the insured Medical (General) History Medical History History ICD Code Denies [place],DM,CVA,Lung disease,renal dise ase Depression/Anxiety IBS 3 negative colonoscopies in [place] with her most recent one in October 2016 by Surgical History Surgery Date(Month/Year) Oopherectomy bilateral Appendectomy CCY Hernia repair x 3 section x 6
--- OUTSIDE RECORDS SUMMARY | 2025-05-25 10:59 | XMS_ITS | Clinical Summary ---
Author Organization [facility] Address [address] [place] [address] Care Team Providers Care Patient Appointment Coordinator Name Role Phone Wilian Bergeron Primary Care Provider Social History Tobacco Use Types Packs/Day Years [...] 2002 Zoster Vaccines (1 of 2) 2002 Alcohol/Substance Use Screening 09/09/2024 Depression Screening and Follow-Up 09/09/2024 Health Care Proxy Review 09/09/2024 Social Drivers of Health Annual Screening 09/09/2024 COVID-19 Vaccine ( season) 2025 06/13/2023, 04/29/2022, 07/05/2021, Additional history exists Influenza Vaccine (#1) 2025 07/05/2021 RSV Vaccine (60+ years old and patients) (1 - 1-dose 75+ series) 11/19/2027 Hepatitis B Vaccines Aged Out No long er eligible based on patient's age to complete [place] [address] [facility] Member Subscriber Plan / Payer (Ef fective 2024-Present) Name:Julia Hall Relation to Subscriber:Spouse Name:REBECCA HALL Date of :1953 (Home) Address: [address] [place] [address] [place] [address] Payer ID:[id number] (NAIC) Group ID:[id number] Type:Not on file Address: [address] [place] [address] MEDICARE Care Teams Patient Appointment Coordinator Relationship Specialty Start Date End Date Wilian Bergeron [address] [place], [place] [phone] PCP - General Internal Medicine 02/05/25
--- OUTSIDE RECORDS SUMMARY | 2025-05-25 10:59 | XMS_ITS | Encounter Summary ---
Author Organization [facility] Address [address] [place] [address] Phone Care Team Providers Care Pasting Inspector Name Role Phone Jens Solano MD Primary Care Provider + Encounter Details Date Type Department Care Team (Latest Contact Info) Description 01/07/2019 Transcribe Orders [facility] Laboratory [address] [place] [address] Prabhakar Carney MD [facility] [address] Other androgenic alopecia (Primary Dx) Social History [...] PM EDT Evaluation [facility] at [address] [address] Maxwell Harkins [address] [place] [address] [email or web address] [place] 06/24/2025 9:00 AM EDT Evaluation [facility] at [address] [address] Kasi Ferraro AuD [address] [place] [address] [email or web address] 09/18/2025 4:30 PM EST Evaluation [facility] at [facility] 243 [facility] [address] [place] [address] Maxwell Harkins [address] [place] [address] [email or web address] documented as of this encounter Results * Iron (01/07/2019 12:43 PM EDT) IRON 86 30 - 160 ug/dL [facility] Blood 01/07/2019 12:4 3 PM EDT 01/07/2019 12:46 PM EDT us Prabhakar Carney MD LAB BLOOD ORDERABLES Fin al Result [address] [address] * Ferritin (01/07/2019 12:43 PM EDT) FERRITIN 146 13 - 150 ug/L [facility] Blood 01/07/2019 12:4 3 PM EDT 01/07/2019 12:46 PM EDT us Prabhakar Carney MD LAB BLOOD ORDERABLES Fin al Result [address] [address] * CBC (01/07/2019 12:43 PM EDT) WBC 5.80 3.40 - 11.20 K/uL [facility] RBC 4.32 3.80 - 4.80 M/uL [facility] HGB 12.6 12.0 - 15.0 g/dL [facility] HCT 39.4 36.0 - 46.0 % [facility] PLT 225 130 - 400 K/uL [facility] MCV 91.2 79.0 - 98.0 fL [facility] MCH 29.2 27.0 - 34.8 pg [facility] MCHC 32.0 31.5 - 36.0 g/dL [facility] RDW 12.7 10.8 - 14.6 % [facility] MPV 10.8 9.4 - 12.4 fl [facility] NRBC 0.00 0.00 /100 WBCs [facility] ABSOLUTE NRBC 0.00 0.00 K/uL [facility] Blood 01/07/2019 12:4 3 PM EDT 01/07/2019 12:46 PM EDT us Prabhakar Carney MD LAB BLOOD ORDERABLES Fin al Result [facility] [address] [place] [address] documented in this encounter Visit Diagnoses Diagnosis Other androgenic alopecia- Primary documented in this encounter Care Teams Pasting Inspector Relationship Specialty Start Date End Date Jens Solano MD PCP - General Internal Medicine 01/07/19 documented as of this encounter Additional Source Comments The information contained in this document represents components of the legal health record. It is not the complete legal health record.[facility]
--- OUTSIDE RECORDS SUMMARY | 2025-05-25 10:59 | XMS_ITS | Encounter Summary ---
Author Organization [facility] Address [address] [employer] [facility] [address] [place] [address] Phone Care Team Providers Care Magazine Feeder Name Role Phone Jens Solano MD Primary Care Provider + Encounter Details Date Type Department Care Team (Late st Contact Info) Description 09/07/2024 Procedure Pass [facility] MAIN PERIOP DEPT [address] [place] [address] Social History Tobacco Use Types Packs/Day Years [...] PM EDT Evaluation [facility] at [address] [address] Maxwell Harkins [address] [place] [address] [email or web address] 06/24/2025 9:00 AM EDT Evaluation [facility] at [address] [address] Kasi Ferraro AuD [address] [place] [address] [email or web address] 09/18/2025 4:30 PM EST Evaluation [facility] at [address] [address] Maxwell Harkins [address] [place] [address] [email or web address] documented as of this encounter Visit Diagnoses Not on filedocumented in this encounter Care Teams Magazine Feeder Relationship Specialty Start Date End Date Jens Solano MD PCP - General Internal Medicine 01/07/19 documented as of this encounter Additional Source Comments The information contained in this document represents components of the legal health record. It is not the complete legal health record.[facility]
--- NOTE | 2025-07-28 14:18 | HO.ANESPROP2 ---
Documented by User: Carla Bateman NP 07/28/25 14:19 HPI - Anesthesia Eval Consult details Narrative: 74yo F for Colonoscopy PMFSH Active Problems Active Problems: All Active Problems (Updated 05/28/25 @ 15:44 by Amanda Birmingham PA-C) Strain of right knee (Acute) Right knee pain (Acute) Acute pain of left knee (Acute) Elevated blood pressure reading (Acute) Class 1 obesity with body mass index (BMI) of 31.0 to 31.9 in adult (Acute) Anxiety (Acute) H/O bone graft (Acute) History of sinus surgery (Acute) History of sinusitis (Acute) Tinnitus (Acute) Depression (Acute) Abdominal muscle strain (Acute) Protuberant abdomen (Acute) Abdominal pain (Acute) Past Medical History Medical History (Updated 08/02/25 @ 12:48 by Melina Chawla RN) Ovarian cyst, bilateral Elevated blood pressure reading Class 1 obesity with body mass index (BMI) of 31.0 to 31.9 in adult Anxiety History of mammogram (~10/12/24) History of sinusitis Tinnitus Fever of unknown origin Depression Surgical History Surgical History (Updated 08/02/25 @ 12:48 by Melina Chawla RN) History of hernia surgery H/O section History of cholecystectomy Hx of appendectomy History of colonoscopy H/O bone graft History of sinus surgery History of nasal surgery History of dental surgery Social History Social History Household Members: Significant Other Housing: House Do you presently have visiting nurse or other home services: No Alcohol intake: current Alcohol intake frequency: holidays/special occasions only Patient Tobacco Use Status: Never used Tobacco e-Cigarette/Vaping Use: Never Used Second Hand Smoke Exposure: No Use of substances other than those prescribed or required for medical reasons: No Are you DNR?: No Advance Directives: No Advance Directives Information Provided: Yes Patient : No : No service: No Current occupational status: retired Cognitive needs: No Hearing needs: No Vision needs: Yes (reading Glasses) Meds Allergies Allergy/AdvReac Type Severity Reaction Status Date / Time morphine (MORPHINE) Allergy Severe Rash Verified 08/02/25 12:45 sulfamethoxazole (From Allergy Severe Rash Verified 08/02/25 12:45 Bactrim) trimethoprim (From Bactrim) Allergy Severe Rash Verified 08/02/25 12:45 Penicillins (PENICILLINS) Allergy Unknown UNKNOWN Verified 05/28/25 14:53 Home Medications ?Medication ?Instructions ?Recorded ?Confirmed ?Last Taken ?Type estradiol 10 mcg vaginal tablet 10 mcg vaginal TUTH@0900 12/14/23 02/05/25 12/12/23 History (Yuvafem) sertraline 100 mg tablet 150 mg PO DAILY 12/14/23 02/05/25 12/13/23 History estradiol 0.01% (0.1 mg/gram) 1 appful vaginal DAILY 02/05/25 02/05/25 Unknown History vaginal cream (Estrace) Assessment and Plan Assessment Anesthesia Assessment: Chart Reviewed Documented by User: Yunior Gomez MD 08/02/25 13:40 [facility] Past Medical History Medical History (Updated 08/02/25 @ 12:48 by Melina Chawla RN) Ovarian cyst, bilateral Elevated blood pressure reading Class 1 obesity with body mass index (BMI) of 31.0 to 31.9 in adult Anxiety History of mammogram (~10/12/24) History of sinusitis Tinnitus Fever of unknown origin Depression Cognitive capacity: normal Functional capacity: independent ambulation Family History Family history of problems with anesthesia: No Surgical History Surgical History (Updated 08/02/25 @ 12:48 by Melina Chawla RN) History of hernia surgery H/O section History of cholecystectomy Hx of appendectomy History of colonoscopy H/O bone graft History of sinus surgery History of nasal surgery History of dental surgery History of Problems with Anesthesia: No Social History Social History Household Members: Significant Other Housing: House Do you presently have visiting nurse or other home services: No Alcohol intake: current Alcohol intake frequency: holidays/special occasions only Patient Tobacco Use Status: Never used Tobacco e-Cigarette/Vaping Use: Never Used Second Hand Smoke Exposure: No Use of substances other than those prescribed or required for medical reasons: No Are you DNR?: No Advance Directives: No Advance Directives Information Provided: Yes Patient : No : No service: No Current occupational status: retired Cognitive needs: No Hearing needs: No Vision needs: Yes (reading Glasses) Meds Allergies Allergy/AdvReac Type Severity Reaction Status Date / Time morphine (MORPHINE) Allergy Severe Rash Verified 08/02/25 12:45 sulfamethoxazole (From Allergy Severe Rash Verified 08/02/25 12:45 Bactrim) trimethoprim (From Bactrim) Allergy Severe Rash Verified 08/02/25 12:45 Penicillins (PENICILLINS) Allergy Unknown UNKNOWN Verified 05/28/25 14:53 Home Medications ?Medication ?Instructions ?Recorded ?Confirmed ?Last Taken ?Type estradiol 10 mcg vaginal tablet 10 mcg vaginal TUTH@0900 12/14/23 02/05/25 12/12/23 History (Yuvafem) sertraline 100 mg tablet 150 mg PO DAILY 12/14/23 02/05/25 12/13/23 History estradiol 0.01% (0.1 mg/gram) 1 appful vaginal DAILY 02/05/25 02/05/25 Unknown History vaginal cream (Estrace) Exam Exam Date and Time: 08/02/25 Airway Mallampati Class: II TM Dist: >3cm Neck ROM: Full Loose/Missing/Broken Teeth: No Heart: normal Lungs: normal Other: normal Assessment and Plan Assessment Anesthesia Assessment: Anesthesia Plan Discussed Final Anesthetic Review Family History of Problems with Anesthesia: No History of Problems with Anesthesia: No NPO: Yes ASA Class: II Final Preanesthetic Review: No Changes in Pt Med Stat, Meds/Allgs Chart Reviewed, Consent Obtained/Reviewed and Anes Risks/Benef Reviewed Patient Risk: Low Procedure Risk: Low Anesthetic Plan Anesthetic Plan: MAC: Disposition: Standard PACU
[2025-08-02 12:49] VITALS: BMI 30.1
[2025-08-02 13:02] VITALS: BP 134/68; PULSE 100; RESP 16; TEMP 37; O2SAT 97
[2025-08-02] MEDS: Lactated Ringers 1,000 ML 100 ML IVCONT (13:13)
[2025-08-02 15:17] VITALS: BP 107/54; PULSE 70; RESP 16; TEMP 36.1; O2SAT 100
--- NOTE | 2025-08-02 15:25 | PM.OP ---
Brief Operative Note Date of Service: 08/02/25 Pre-op diagnosis: Change in bowel habits Post-op diagnosis: other (Colon polyp) Procedure: Colonoscopy to the cecum with cold snare polypectomy x 1 Surgeon: Zi Lange MD Anesthesia: MAC Was an State Highway Police Officer used for this Procedure?: No Estimated blood loss (mL): 2.0 Pathology: other (A. Polyp at 20cm) Condition: stable Disposition: PACU
[2025-08-02 15:33] VITALS: BP 118/55; PULSE 73; RESP 20; TEMP 36.4; O2SAT 99
--- NOTE | 2025-08-03 01:42 | OP_ITS ---
DATE OF SERVICE: 08/02/2025 SURGEON: Zi Lange MD INDICATIONS: The patient presents for evaluation of change in bowel habits and colorectal cancer screening. Full consent has been obtained from her for this, including risks of bleeding and perforation. PREOPERATIVE DIAGNOSIS: POSTOPERATIVE DIAGNOSIS: PROCEDURE PERFORMED: Colonoscopy to the cecum with cold snare polypectomy. ESTIMATED BLOOD LOSS: COMPLICATIONS: ANESTHESIA: Monitored anesthesia care. ASSISTANTS: SPECIMENS: PREOPERATIVE DIAGNOSES: Change in bowel habits and colorectal cancer screening. POSTOPERATIVE DIAGNOSES: Change in bowel habits and colorectal cancer screening, colon polyp, diverticulosis, internal and external hemorrhoids. DESCRIPTION OF PROCEDURE: The patient was placed in left lateral decubitus position. Digital rectal exam revealed some hemorrhoidal tissue. The Olympus video pediatric colonoscope was entered into the rectum and advanced to the cecum with assistance of abdominal wall pressure. Once in the cecum, I did identify normal-appearing cecal pouch with appendiceal orifice and normal-appearing ileocecal valve. The entire cecum and ileocecal valve appeared normal. There was transillumination of light deep in the lower quadrant. The scope was then slowly withdrawn assessing all mucosal surfaces carefully. Preparation was excellent. At 20 cm, there was a flat, but raised approximately 6 mm grossly adenomatous polyp, which was removed by cold snare polypectomy, recovered by suction. The polypectomy site appeared clean, without sign of residual polyp nor significant bleeding. I did not visualize any other polyps, colitis, nor angiodysplasia. There was a mild amount of sigmoid diverticulosis. In the rectum, scope was retroflexed visualizing internal hemorrhoids, but no other pathology. The rectal mucosa appeared normal. Scope was straightened and withdrawn from the patient. She tolerated the procedure well and was returned to the recovery area in stable condition. IMPRESSION: 1. Colon polyp. 2. Diverticulosis. 3. Internal and external hemorrhoids. PLAN: The results of the pathology will be checked. If this is a tubular adenoma, I would recommend a followup colonoscopy in 5 years. If it happens to be only hyperplastic, I would then recommend holding off on any further screening colonoscopies given her age of 74. She was advised not to use any aspirin and NSAIDs for 1 week. She will otherwise see me on a p.r.n. basis. In regard to her previous complaint of some floating stools this seems to have resolved by her history. Workup for that was negative in regard to CT scan of the pancreas and celiac disease. MD MILA Villalobos/SUPRIYA / [phone]
== END 2025-08-02 16:24 | disposition home or self-care (01) ==
PROVIDERS: PCP Internal Medicine; Visit Provider Internal Medicine
PROC: 0DJD8ZZ Inspection of Lower Intestinal Tract, Via Natural or Artificial Opening Endoscopic (ICD-10-PCS; CPT 45378; principal; 2025-08-02 13:40)
DX: R19.4 Change in bowel habit (principal); Z83.719 Family history of colon polyps, unspecified; D12.5 Benign neoplasm of sigmoid colon; K57.30 Diverticulosis of large intestine without perforation or abscess without bleeding; K64.8 Other hemorrhoids; K64.4 Residual hemorrhoidal skin tags; K58.9 Irritable bowel syndrome, unspecified; R10.84 Generalized abdominal pain; F41.8 Other specified anxiety disorders; Z79.899 Other long term (current) drug therapy; Z88.0 Allergy status to penicillin; Z88.2 Allergy status to sulfonamides; Z90.49 Acquired absence of other specified parts of digestive tract; Z98.890 Other specified postprocedural states
CPT/HCPCS: 45385; 88305; J2003; J2704; J3010

== ENCOUNTER 2025-08-17 10:01 | Outpatient (AMB) | payer MEDICARE, BC, SELFPAY ==
[2025-08-17 10:09] VITALS: BP 132/63; PULSE 80; RESP 16; TEMP 36.3; O2SAT 97; BMI 31.2
--- NOTE | 2025-08-17 10:09 | A.OFFPC_ITS ---
Vital Signs 08/17/25 10:09 Height 5 ft 2.8 in Weight 175 lb BMI 31.2 BP 132/63 Blood Pressure Location Lt brachial Position Sitting Respiration 16 Pulse 80 Pulse Source Pulse Oximeter Temp 97.4 F Temp Source Temporal Artery Scan Pulse Oximetry (%) 97 Oxygen Delivery Method Room Air Intake Visit Reasons: 4 month follow up Scrape Gatherer Required: No Accompanied by: Self / Same As Patient Allergies morphine (MORPHINE) Allergy (Severe, Verified 08/17/25 10:10) Rash sulfamethoxazole (From Bactrim) Allergy (Severe, Verified 08/17/25 10:10) Rash trimethoprim (From Bactrim) Allergy (Severe, Verified 08/17/25 10:10) Rash Penicillins (PENICILLINS) Allergy (Unknown, Verified 08/17/25 10:10) UNKNOWN Tobacco use date assessed: 05/04/25 Dental Screening Dental Screen Date: 12/29/24 [facility] Medical History Ovarian cyst, bilateral Elevated blood pressure reading Class 1 obesity with body mass index (BMI) of 31.0 to 31.9 in adult Anxiety History of mammogram (~10/12/24) History of sinusitis Tinnitus Fever of unknown origin Depression Surgical History History of hernia surgery H/O section History of cholecystectomy Hx of appendectomy History of colonoscopy (08/02/25) H/O bone graft History of sinus surgery History of nasal surgery History of dental surgery Social History Household Members: Significant Other Housing: House Do you presently have visiting nurse or other home services: No Alcohol intake: current Alcohol intake frequency: holidays/special occasions only Patient Tobacco Use Status: Never used Tobacco e-Cigarette/Vaping Use: Never Used Second Hand Smoke Exposure: No service: No Current occupational status: retired Cognitive needs: No Hearing needs: No Vision needs: Yes (reading Glasses) Questionnaire PHQ-9 Over the last 2 weeks, how often have you been bothered by any of the following problems? 1. Little interest or pleasure in doing things: not at all 2. Feeling down, depressed, or hopeless: several days (currently on medication) 3. Trouble falling or staying asleep, or sleeping too much: not at all 4. Feeling tired or having little energy: not at all 5. Poor appetite or overeating: not at all 6. Feeling bad about yourself - or that you are a failure or have let yourself or your family down: not at all 7. Trouble concentrating on things, such as reading the newspaper or watching television: not at all 8. Moving or speaking so slowly that other people could have noticed. Or the opposite - being so fidgety or restless that you have been moving around a lot more than usual: not at all 9. Thoughts that you would be better off or of hurting yourself in some way: not at all Total score: 1 Depression Screening Interpretation: Negative Depression Screening Done: Yes 34927 - PHQ-9 Billing: Yes Source: Developed by Drs. Zi Roque, Yas Sheldon, Steve Washington and colleagues, with an educational hay from [employer] Thrive Questionnaire Date Thrive assessed: 02/05/25 I am a: Patient What is your living situation today?: I have a steady place to live Within the past 12 months, did the food you bought not last and you didn't have the money to get more?: Never true Within the past 12 months, did you worry whether your food would run out before you got money to buy more?: Never true Do you have trouble paying for medicines?: No Do you have trouble getting transportation to medical appointments?: No Do you have trouble paying your heating and electricity bill?: No Do you have trouble taking care of your child, family member or friend?: No Do you have trouble with day-to-day activities such as bathing, preparing meals, shopping, managing finances, etc.?: No Are you currently unemployed and looking for a job?: No Are you interested in more education?: No Please select the resources that you would like help with: None Currently or been in a relationship where the following occur: No concerns reported THRIVE Score: 0 AUDIT C Alcohol Use Questionnaire (AUDIT-C) 1. How often do you have a drink containing alcohol?: Monthly or less 2. How many drinks containing alcohol do you have on a typical day when you are drinking?: 1 or 2 3. How often do you have six or more drinks on one occasion?: Never Total Score: 1 Score Reviewed/Action Taken: No SHIMA-7 AMB Questionnaire SHIMA-7 Date SHIMA - 7 assessed: 02/05/25 Feeling nervous, anxious, or on edge: 0 = Not at all Not being able to stop or control worryin = Not at all Worrying too much about different things: 0 = Not at all Trouble relaxin = Not at all Being so restless that it is hard to sit still: 0 = Not at all Becoming easily annoyed or irritable: 0 = Not at all Feeling afraid as if something awful might happen: 0 = Not at all Total SHIMA-7 score (0-4 normal; 5-9 mild; 10-14 moderate; 15-21 severe): 0 Source: Developed by Drs. Zi Roque, Yas Sheldon, Steve Washington and colleagues, with an educational hay from [employer] SHIMA-7 Assessment Billing SHIMA-7 Assessment Tool: SHIMA-7 Assessment 25415 Physical exam (Primary Care) Tobacco/Smoking Status: Tobacco use Status Tobacco use date assessed 05/04/25 05/04/25 09:36 Patient Tobacco Use Status Never used Tobacco 05/28/25 14:53 e-Cigarette/Vaping Use Never Used 05/04/25 09:36 Depression Screening Interpretation: Negative Thrive Assessment: Date of Thrive Assessment Date Thrive assessed 02/05/25 05/04/25 09:36 Currently or been in a relationship where the following occur: No concerns reported Office Procedures Flu Questionnaire Does the patient have a severe egg allergy?: No Does the patient have severe life threatening allergies?: No Does the patient have a fever or illness today?: No Has the patient ever had Guillain-Washington Syndrome?: No Has the patient ever had any past reaction to a flu shot?: No Immunizations Fluarix [id number] (PF) 45 mcg (15 mcg x 3)/0.5 mL IM syringe Performing Provider: Wilian Bergeron MD [facility] Documented (not given) by: ANDRES Medrano on 08/17/25 10:15 Reason Not Given: Received Previously Coding Additional Codes PHQ-9 - 84792 - PHQ-9 Billing: Yes ([id number]) SHIMA-7 Assessment Billing - SHIMA-7 Assessment Tool: SHIMA-7 Assessment 00036 ([id number]) Assessment & Plan Assessment & Plan Orders: Orders Influenza [id number] Immunization Today Z23 - Encounter for immunization
== END 2025-08-17 10:47 | disposition home or self-care (01) ==
LOC: HO.HMCSH 10:01
PROVIDERS: PCP Internal Medicine; Visit Provider Internal Medicine
DX: Z23 Encounter for immunization (principal)

== ENCOUNTER → 2025-08-17 10:01 | Outpatient (BNVA) | payer MEDICARE, BC, SELFPAY | PROVIDERS: PCP Internal Medicine; Visit Provider Internal Medicine | DX: L30.4 Erythema intertrigo (principal); F32.A Depression, unspecified; R19.5 Other fecal abnormalities; M85.89 Other specified disorders of bone density and structure, multiple sites | CPT/HCPCS: 90471; 96127; 99212 ==

== ENCOUNTER 2025-09-01 02:43 | Emergency (ER) | payer MEDICARE, BC, SELFPAY ==
--- OUTSIDE RECORDS SUMMARY | 2024-05-18 04:30 | XMS_ITS ---
Author Organization [facility], [place] Address [address] [facility] [address] [place] [address] Care Team Providers Care Caregivers Non Medical Name Role Phone Migration, Provider Unavailable Unavailable REASON FOR VISIT Follow-up Appt Encounters Encounter Location Date Provider Diagnosis [address] [id number] 05/18/2024 Provider Migration Plan Of Treatment No Information Progress Notes * VERENICE MALIKDOB:1950 ( 74 yo F)Acc No.[id number]:05/18/2024 Progress Notes Patient: VERENICE JUDD Provider: Stephanie Berry :1950 A ge:73 Y S ex:Female Date:05/18/2024 Address:[address] [place] [address] [id number] Subjective: * Chief Complaints: * F ollow-up Appt * Ocular Surgical History: Objective: Vision Examination: * Electronic signature of Prov ider Migration on 09/01/2025 at 05:22 AM EST Sign off status: Pending * Provider: Stephanie ruiz Migration Date: 0 05/18/2024 Generated for Bob mejia/Ember/Carolineitting on: 1 11/02/2024 05:22 AM EST
--- OUTSIDE RECORDS SUMMARY | 2024-06-01 06:15 | XMS_ITS ---
Author Organization [facility], [place] Address [address] [facility] 1 [place] [address] Care Team Providers Care Shank Sander Name Role Phone Migration, Provider Unavailable Unavailable REASON FOR VISIT Follow-up Appt Encounters Encounter Location Date Provider Diagnosis [address] [address] 06/01/2024 Provider Migration Plan Of Treatment No Information Progress Notes * VERENICE MALIKDOB:1950 ( 74 yo F)Acc No.[id number]:06/01/2024 Progress Notes Patient: VERENICE JUDD Provider: Stephanie Berry :1950 A ge:73 Y S ex:Female Date:06/01/2024 Address:[address] [place] [address] [id number] Subjective: * Chief Complaints: * F ollow-up Appt * Ocular Surgical History: Objective: Vision Examination: * Electronic signature of Prov ider Migration on 09/01/2025 at 05:21 AM EST Sign off status: Pending * Provider: Stephanie ruiz Migration Date: 0 06/01/2024 Generated for Bob mejia/Ember/Carolineitting on: 1 11/02/2024 05:21 AM EST
--- OUTSIDE RECORDS SUMMARY | 2024-06-16 23:00 | XMS_ITS | Encounter Summary ---
Author Organization [facility] Address [address] [facility] [address] [place] [phone] Phone Care Team Providers Care Cake Mixer Name Role Phone Jens Solano MD Primary Care Provider + Encounter Details Date Type Department Care Team (Late st Contact Info) Description 06/17/2024 Hospital Encounter [facility] [address] [place] [phone] Bipin Coburn MD, MS [address] [place] [address] [email or web address] [email or web address] [email or web address] Social History Tobacco Use Types Packs/Day Years Used Date Smoking Tobacco: Never Smokeless Tobacco: Never Alcohol Use Standard Drinks/Week Comments Yes 1 (1 standard drink = 0.6 oz pur e alcohol) socially Education Answer Date Recorded Are you interested in more education? Not on munir e 08/03/2024 Are you concerned about learning? Not on file 08/03/2024 No 08/03/2024 No 08/03/2024 Digital Access Answer Date Recorded No 08/03/2024 No 08/03/2024 Reliable internet access at home? Not on file 08/03/2024 Device with a working camera? Not on file Intimate Partner Violence Answer Date R ecorded Are you denied basic needs s uch as food, clothing, or medical care? No 09/07/2024 In the past 12 months have y ou been in a relationship with a person who hurts, threatens, or tries to control you? No 09/07/2024 Are you denied basic needs s uch as food, clothing, or medical care? No 09/07/2024 In the past 12 months have y ou been in a relationship with a person who hurts, threatens, or tries to control you? No 09/07/2024 Comments No Sex and Gender Information Value Date Recorded Sex Assigned at Not on file Legal Sex Female 12:28 PM EDT Gender Identity Not on file Sexual Orientation Not on file documented as of this encounter Plan of Treatment Upcoming Encounters Date Type Department Care Team (Late st Contact Info) Description 09/14/2025 10:30 AM EST Evaluation [facility] [address] [place] [address] Maxwell Harkins [address] [place] [address] [email or web address] 12/06/2025 11:00 AM EDT Evaluation [facility] [address] [place] [address] Kasi Ferraro AuD [address] [place] [phone] [email or web address] Maxwell Harkins [address] [place] [phone] [email or web address] documented as of this encounter Procedures Procedure Name Priority Date/Time Associated Diagnosis Comments CT FACE OUTSIDE (NO INTERPRETATION) Routine 06/17/2024 12:00 AM EDT documented in this encounter Results * CT Face Outside (No Interpretation) (06/17/2024 12:00 AM EDT) Narrative [facility] - 08/13/2024 1:14 PM EST This study is for PACS storage only and not for interpretation. Bipin Coburn MD, MS IMG OUTSIDE IMAGING W/OUT INTERPRETATION Final Result [facility] documented in this encounter Visit Diagnoses Not on filedocumented in this encounter Care Teams Cake Mixer Relationship Specialty Start Date End Date Jens Solano MD PCP - General Internal Medicine 01/07/19 documented as of this encounter Additional Source Comments The information contained in this document represents components of the legal health record. It is not the complete legal health record.[facility]
--- OUTSIDE RECORDS SUMMARY | 2024-06-16 23:05 | XMS_ITS | Encounter Summary ---
Author Organization [facility] Address [address] [place] [phone] Phone Care Team Providers Care Chemical Plant Manager Name Role Phone Jens Solano MD Primary Care Provider + Encounter Details Date Type Department Care Team (Late st Contact Info) Description 06/17/2024 12:05 AM EDT Hospital Encounter [facility] [address] [place] [phone] Bipin Coburn MD, MS [address] [place] [address] [email or web address] Social History Tobacco Use Types Packs/Day Years [...] Evaluation [facility] [address] [place] [address] Maxwell Harkins [address] [place] [address] [email or web address] 12/06/2025 11:00 AM EDT Evaluation [facility] [address] [place] [address] Kasi Ferraro AuD [address] [place] [address] [email or web address] Maxwell Harkins [address] [place] [phone] [email or web address] documented as of this encounter Procedures Procedure Name Priority Date/Time Associated Diagnosis Comments CT FACE OUTSIDE (NO INTERPRETATION) Routine 06/17/2024 12:05 AM EDT documented in this encounter Results * CT Face Outside (No Interpretation) (06/17/2024 12:05 AM EDT) Narrative [facility] - 08/13/2024 1:15 PM EST This study is for PACS storage only and not for interpretation. us Bipin Coburn MD, MS IMG OUTSIDE IMAGING W/OUT INTERPRETATION Final Result [facility] documented in this encounter Visit Diagnoses Not on filedocumented in this encounter Care Teams Chemical Plant Manager Relationship Specialty Start Date End Date Jens Solano MD PCP - General Internal Medicine 01/07/19 documented as of this encounter Additional Source Comments The information contained in this document represents components of the legal health record. It is not the complete legal health record.[facility]
--- OUTSIDE RECORDS SUMMARY | 2024-06-29 11:30 | XMS_ITS ---
Author Organization [facility] [place] Address [address] [facility] [address] [place] [address] Care Team Providers Care Summer Babysitter Name Role Phone Migration, Provider Unavailable Unavailable REASON FOR VISIT Sick Visit Encounters Encounter Location Date Provider Diagnosis [facility], [address] [address] 06/29/2024 Provider Migration Plan Of Treatment No Information Progress Notes * VERENICE MALIKDOB:1950 ( 74 yo F)Acc No.[id number]:06/29/2024 Progress Notes Patient: VERENICE JUDD Provider: Stephanie Berry :1950 A ge:73 Y S ex:Female Date:06/29/2024 Address:[address] [place] [address] [id number] Subjective: * Chief Complaints: * S ick Visit * Ocular Surgical History: Objective: Vision Examination: * Electronic signature of Prov ider Migration on 09/01/2025 at 05:21 AM EST Sign off status: Pending * Provider: Stephanie ruiz Migration Date: 1 Generated for Bob mejia/Ember/Rajsmitting on: 11/02/2024 05:21 AM EST
--- OUTSIDE RECORDS SUMMARY | 2024-08-27 09:30 | XMS_ITS ---
Author Organization [facility] [place] Address [address] [facility] [address] [place] [address] Care Team Providers Care Counter Hop Name Role Phone Migration, Provider Unavailable Unavailable REASON FOR VISIT Follow-up Appt Encounters Encounter Location Date Provider Diagnosis [address] [address] 08/27/2024 Provider Migration Plan Of Treatment No Information Progress Notes * VERENICE MALIKDOB:1950 ( 74 yo F)Acc No.[id number]:08/27/2024 Progress Notes Patient: VERENICE JUDD Provider: Stephanie Berry :1950 A ge:73 Y S ex:Female Date:08/27/2024 Address:[address] [place] [address] [id number] Subjective: * Chief Complaints: * F ollow-up Appt * Ocular Surgical History: Objective: Vision Examination: * Electronic signature of Prov ider Migration on 09/01/2025 at 05:22 AM EST Sign off status: Pending * Provider: Stephanie ruiz Migration Date: 10/28/2023 Generated for Bob mejia/Ember/Rajsmitting on: 11/02/2024 05:22 AM EST
--- OUTSIDE RECORDS SUMMARY | 2025-07-14 05:30 | XMS_ITS ---
Author Organization [facility] Address [address] [place] [address] Care Team Providers Care Sap Bpc Developer Name Role Phone KRISTOPHER BETANCOURT Primary Care Provider Zi Lehman [phone] REASON FOR VISIT screening,change in bowel habits Encounters Encounter Location Date Provider Diagnosis [facility] Outpatient [address] [place], [place] [phone] 07/14/2025 Zi Lange Plan Of Treatment No Information Progress Notes * VERENICE MALIKDOB:1950 ( 74 yo F)Acc No.[id number]:07/14/2025 COLON WITH MAC Patient: VERENICE JUDD Provider: Tori Lange MD :1950 A ge:74 Y S ex:Female Date:07/14/2025 Address:[address] [place], [place] [id number] Pcp:KRISTOPHER BETANCOURT Subjective: * Chief Complaints: * S creening,change in bowel habits * The named appointment provid er may or may not be the originator of this progress note, and it is not deemed complete until electronically signed by the appointment provider. Sign off status: Pending * Provider: Tori Lange MD Date: 09/13/2024 Generated for Bob mejia/Ember/Carolineitting on: 11/02/2024 05:21 AM EST
--- OUTSIDE RECORDS SUMMARY | 2025-08-02 08:40 | XMS_ITS ---
Author Organization [facility] Address [address] [place] [address] Care Team Providers Care Rope Maker Name Role Phone KRISTOPHER BETANCOURT Primary Care Provider Zi Lehman [phone] REASON FOR VISIT screening,change in bowel habits Encounters Encounter Location Date Provider Diagnosis [facility] Outpatient [address] [place], [place] [phone] 08/02/2025 Zi Lange Plan Of Treatment No Information Progress Notes * VERENICE MALIKDOB:1950 ( 74 yo F)Acc No.[id number]:08/02/2025 COLON WITH MAC Patient: VERENICE JUDD Provider: Tori Lange MD :1950 A ge:74 Y S ex:Female Date:08/02/2025 Address:[address] [place] [address] [facility] Pcp:KRISTOPHER BETANCOURT Subjective: * Chief Complaints: * S creening,change in bowel habits Billing Information: * Procedure Codes: * The named appointment provid er may or may not be the originator of this progress note, and it is not deemed complete until electronically signed by the appointment provider. Sign off status: Pending * Provider: Tori Lange MD Date: 10/02/2024 Generated for Bob mejia/Ember/Carolineitting on: 11/02/2024 05:22 AM EST
--- NOTE | ~2025-09-01 | CT_ITS ---
CLINICAL HISTORY: epigastric pain, hx lap jose r, api, oophrectomy CT abdomen and pelvis with contrast Comparison 05/26/2025 Findings: Mild bibasilar lung atelectasis/scarring. Cholecystectomy. Bilateral renal parapelvic cysts. Otherwise unremarkable kidneys without hydronephrosis or urinary tract stone. Spleen, pancreas, liver, bile ducts, adrenals, urinary bladder, and internal reproductive organs are unremarkable. Small hiatal hernia. Uncomplicated fundal duodenal diverticulum can not be excluded. Mild atherosclerotic calcifications. Postsurgical ventral abdominal wall changes. Right paramidline infraumbilical [id number] sized fat containing incisional hernia with mild internal and surrounding fat stranding likely due to scarring. Nevertheless, correlate clinically for presence or absence of reducibility of the hernia. Appendix not seen. No right lower quadrant fatty changes. No acute fracture. Spinal degenerative changes. IMPRESSION: Postsurgical ventral abdominal wall changes. Right paramidline infraumbilical [id number] sized fat containing incisional hernia with mild internal and surrounding fat stranding likely due to scarring. Nevertheless, correlate clinically for presence or absence of reducibility of the hernia. Nonprogressive small hiatal hernia. This document has been electronically signed by: Roxanne Aranda MD on 09/01/2025 05:26:29
[2025-09-01 02:46] VITALS: BP 165/80; PULSE 94; RESP 18; TEMP 36.6; O2SAT 100; BMI 31.1
[2025-09-01 02:55] VITALS: BP 147/72; PULSE 94; RESP 12; TEMP 36.8; O2SAT 97
--- NOTE | 2025-09-01 03:01 | ECG_ITS ---
Test Reason : ABD PAIN Blood Pressure : */* mmHG Vent. Rate : 85 BPM Atrial Rate : 85 BPM P-R Int : 158 ms QRS Dur : 80 ms QT Int : 378 ms P-R-T Axes : 67 34 47 degrees QTcB Int : 449 ms Normal sinus rhythm Nonspecific ST abnormality Abnormal ECG When compared with ECG of 18-Nov-2005 07:56, QT has lengthened Referred By: Mally Trejo Electronically Signed By: NONA ROJAS MD
--- NOTE | 2025-09-01 03:04 | ED.ABDPAIN ---
HPI - Abdominal Pain General Chief Complaint: Abdominal Pain Stated Complaint: stomach pain Time Seen by Provider: 09/01/25 02:53 Source: patient Mode of arrival: ambulatory Limitations: no limitations History of Present Illness ED Provider: Dr. Mally Trejo HPI narrative: Patient comes to the emergency room complaining of epigastric pain started 2 hours ago. Patient states that she has not vomited or had any diarrhea. Patient has been passing flatus. Patient reports multiple surgeries in the past including appendectomy, cholecystectomy, oophorectomy. Also, multiple hernia surgeries. Patient denies fever or chills. Patient denies chest pain or shortness of breath. Related Data Home Medications ?Medication ?Instructions ?Recorded ?Confirmed estradiol 10 mcg vaginal tablet 10 mcg vaginal TUTH@0900 12/14/23 08/24/25 (Yuvafem) sertraline 100 mg tablet 150 mg PO DAILY 12/14/23 08/24/25 estradiol 0.01% (0.1 mg/gram) 1 appful vaginal DAILY 02/05/25 08/24/25 vaginal cream (Estrace) Previous Rx's ?Medication ?Instructions ?Recorded dicyclomine 20 mg tablet 20 mg PO TID PRN abdominal pain 09/01/25 #14 tabs polyethylene glycol 3350 17 17 g PO DAILY PRN constipation 09/01/25 gram/dose oral powder (Miralax) #119 grams Allergies Allergy/AdvReac Type Severity Reaction Status Date / Time morphine (MORPHINE) Allergy Severe Rash Verified 09/01/25 02:50 sulfamethoxazole (From Allergy Severe Rash Verified 09/01/25 02:50 Bactrim) trimethoprim (From Bactrim) Allergy Severe Rash Verified 09/01/25 02:50 Penicillins (PENICILLINS) Allergy Unknown UNKNOWN Verified 09/01/25 02:50 Review of Systems Review of Systems Constitutional : No Weight loss, No Fever, No Chills, No Night Sweats, No Fatigue, No Malaise ENT/Mouth : No Hearing loss, No Ear Pain, No Nasal Congestion, No Sinus Pain, No Hoarseness, No sore throat, No Rhinorrhea, No Swallowing Difficulty Eyes: No Eye Pain, No Swelling, No Redness, No Foreign Body, No Discharge, No Vision Changes Cardiovascular : No Chest Pain, No SOB, No Dyspnea on Exertion, No Orthopnea, No Edema, No Palpitations Respiratory : No Cough, No Sputum, No Wheezing, No Smoke Exposure, No Dyspnea Gastrointestinal : Complaining of nausea, No Vomiting, No Diarrhea, No Constipation, complaining of epigastric pain no hematochezia or melena Genitourinary : no irregular bleeding, No Dysuria, No Urinary Frequency, No Hematuria, No Urinary Incontinence, No Urgency, No Flank Pain, No Urinary Flow Changes, No Hesitancy Musculoskeletal : No joint pain, No Myalgias, No Joint Swelling Skin : No Skin Lesions, No rash Neuro : No Weakness, No Numbness, No Paresthesias, No Loss of Consciousness, No Dizziness, No Headache Psych : No Anxiety/Panic, No Depression, No SI/HI/AH/VH, No Social Issues, Heme/Lymph: No Bruising, No Bleeding,No Lymphadenopathy Endocrine : No Polyuria, No Polydipsia, No Temperature Intolerance PMF Past Medical History Medical History Ovarian cyst, bilateral Elevated blood pressure reading Class 1 obesity with body mass index (BMI) of 31.0 to 31.9 in adult Anxiety History of mammogram (~10/12/24) History of sinusitis Tinnitus Fever of unknown origin Depression Surgical History History of hernia surgery H/O section History of cholecystectomy Hx of appendectomy History of colonoscopy (08/02/25) H/O bone graft History of sinus surgery History of nasal surgery History of dental surgery Social History Social History Household Members: Significant Other Housing: House Do you presently have visiting nurse or other home services: No Alcohol intake: current Alcohol intake frequency: holidays/special occasions only Patient Tobacco Use Status: Never used Tobacco Smoked in Last 30 Days: No e-Cigarette/Vaping Use: Never Used Second Hand Smoke Exposure: No Use of substances other than those prescribed or required for medical reasons: No Advance Directives: No Advance Directives Information Provided: Yes Do you have a plan to hurt others: No Plan service: No Current occupational status: retired Cognitive needs: No Hearing needs: No Vision needs: Yes (reading Glasses) Physical Exam ED Exam Exam: Appearance: Alert. Oriented X3. Patient looks uncomfortable, nauseous Eyes: Pupils equal, round and reactive to light. ENT: Pharynx normal. Neck: Normal inspection. Neck supple. No lymph nodes noted. No crepitus CVS: Normal heart rate and rhythm. Pulses normal. Normal S1 and S2 Respiratory: No respiratory distress. Breath sounds normal. No Wheezing. No rales Abdomen: Soft, tenderness to palpation epigastric area, no rebound or guarding, negative pain at McBurney's point, negative Paredes's sign Skin: Skin warm and dry. Normal skin color. Normal skin turgor. Extremities: No lower extremity edema. No Lacerations. No Rash Neuro: Oriented X 3. No motor deficit. No sensory deficit. Moving all extremities. No slurred speech. CN 2 through 12 grossly intact Psych: calm, cooperative, normal affect Vital Signs: Vital Signs - 24 hr 09/01/25 02:46 09/01/25 02:55 Temperature 97.8 F 98.3 F Pulse Rate 94 94 Respiratory Rate 18 12 Blood Pressure 165/80 H 147/72 H Pulse Oximetry 100 97 Oxygen Delivery Method Room Air Room Air BMI result Body Mass Index 31.1 Course Course Course Narrative: Patient receiving IV fluids, Dilaudid and Zofran All of patient's labs and imaging pending Medical Decision Making Medical Decision Making MDM Narrative: My interpretation of labs: No significant abnormality patient's hematology and chemistry, LFTs within normal limits, troponin negative, lipase 33. Urinalysis negative for UTI. In previous labs, patient has had leukocyte esterase and WBCs. However, microbiology report is negative for bacterial growth CT scan shows postsurgical ventral abdominal wall changes, no significant acute abnormality. No hernia strangulation. After the pain medication, patient states that she feels much better, denies any abdominal cramping, pain, nausea or vomiting. I discussed with the patient to avoid eating heavily. However, with Young Jamison coming up tonight and patient has plans, it will be a bit hard. But I discussed with the patient that ideally he should try to stick to a liquid diet but realistically it will not be possible. At this time, patient states that she feels well, back to normal. I discussed with the patient that she needs to make sure that she has good bowel movements because it medication that they gave her today for the pain may cause significant constipation. Differential Diagnosis Differential Diagnoses: The differential diagnosis associated with the presentation includes (Hernia strangulation, small bowel obstruction, severe constipation, bowel perforation, colitis) Admission/Observation Consideration of admission/observation: Escalation of care including admission/observation considered (Given patient's age and initial presentation, observation was considered) Lab Data MDM Lab Attestation statement: I reviewed the patient's lab results. 09/01/25 03:18 09/01/25 03:18 Labs: Lab Results 09/01/25 09/01/25 Range/Units 03:18 04:39 WBC 10.2 (4.8-10.8) X10*3/uL RBC 4.09 L (4.20-5.50) X10*6/uL Hgb 12.3 (12.0-16.0) g/dl Hct 36.6 L (37.0-47.0) % MCV 89.5 (80.0-98.0) fL MCH 30.1 (27.0-33.0) pg MCHC 33.6 (31.0-35.0) g/dl RDW 12.1 (11.0-16.0) % Plt Count 187 (160-400) X10*3/uL MPV 10.1 (9.4-12.3) fL Immature Gran % (Auto) 0.3 (0.0-0.4) % Neut % (Auto) 71.9 (45-73) % Lymph % (Auto) 23.1 (20-40) % [place] % (Auto) 3.5 (2-11) % Eos % (Auto) 0.8 (0-4) % Baso % (Auto) 0.4 (0-2) % Lymph # (Auto) 2.4 (1.2-4.9) X10*3/uL [place] # (Auto) 0.4 (0.1-1.2) X10*3/uL Eos # (Auto) 0.1 (0.0-0.4) X10*3/uL Baso # (Auto) 0.0 (0.0-0.2) X10*3/uL Abs Immat Gran (auto) 0.03 (0.00-0.03) X10*3/uL Absolute Neuts (auto) 7.3 (2.0-8.3) x10*3/uL Absolute Nucleated RBC 0.000 (0.0-0.012) X10*3/uL Nucleated RBC % (auto) 0.0 (0.0-0.2) /100WBC Sodium 142 (135-145) mmol/L Potassium 3.4 (3.3-5.1) mmol/L Chloride 108 (96-108) mmol/L Carbon Dioxide 24 (22-29) mmol/L Anion Gap 13 (12-20) BUN 18 H (9-16) mg/dL Creatinine 0.67 (0.5-1.4) mg/dL Estim Creat Clear Calc 75.8 Estimated GFR > 60 Random Glucose 129 H (60-115) mg/dL Calcium 9.3 (8.4-10.2) mg/dL Magnesium 1.7 (1.6-2.6) mg/dL Total Bilirubin 0.3 (0.0-1.0) mg/dL Direct Bilirubin 0.1 (0.0-0.5) mg/dL AST 21 (5-31) U/L ALT 15 (0-31) U/L Alkaline Phosphatase 76 (39-117) U/L Troponin I High Sens < 2.7 (<3.5-17.0) ng/L Total Protein 6.6 (6.5-8.0) g/dL Albumin 4.3 (3.5-5.0) g/dL Lipase 33 (8-78) U/L Urine Color Yellow Urine Appearance Clear Urine pH 5.0 (5.0-9.0) Ur Specific [place] >= 1.030 H (1.005-1.025) Urine Protein Negative (Neg-Trace) mg/dL Urine Glucose (UA) Negative (Negative) mg/dL Urine Ketones Negative (Negative) mg/dL Urine Blood Negative (Negative) Urine Nitrite Negative (Negative) Ur Leukocyte Esterase Small (1+) H (Negative) Urine RBC 0-2 (0-2) /HPF Urine WBC 11-20 H (0-5) /HPF Ur Squamous Epith Cells 0-2 (0-2) /HPF Urine Bacteria None Seen (None Seen) Hyaline Casts 0-2 (0-2) /LPF Independent Interpretation I performed an independent interpretation of an: CT Scan Radiology Impression Discussion of test interpretation with radiology: I have reviewed the radiologist's reading. Radiologist Impression: Mild bibasilar lung atelectasis/scarring. Cholecystectomy. Bilateral renal parapelvic cysts. Otherwise unremarkable kidneys without hydronephrosis or urinary tract stone. Spleen, pancreas, liver, bile ducts, adrenals, urinary bladder, and internal reproductive organs are unremarkable. Small hiatal hernia. Uncomplicated fundal duodenal diverticulum can not be excluded. Mild atherosclerotic calcifications. Postsurgical ventral abdominal wall changes. Right paramidline infraumbilical [id number] sized fat containing incisional hernia with mild internal and surrounding fat stranding likely due to scarring. Nevertheless, correlate clinically for presence or absence of reducibility of the hernia. Appendix not seen. No right lower quadrant fatty changes. No acute fracture. Spinal degenerative changes. IMPRESSION: Postsurgical ventral abdominal wall changes. Right paramidline infraumbilical [id number] sized fat containing incisional hernia with mild internal and surrounding fat stranding likely due to scarring. Nevertheless, correlate clinically for presence or absence of reducibility of the hernia. Nonprogressive small hiatal hernia. Medications Administered Discontinued Medications Generic Name Dose Route Start Last Admin Trade Name Freq PRN Reason Stop Dose Admin Hydromorphone HCl 0.5 mg 09/01/25 03:03 09/01/25 03:21 Hydromorphone Hcl 0.5 Mg/0.5 Ml Syringe IVPUSH 09/01/25 03:04 0.5 mg ONCE ONE Administration Protocol Sodium Chloride 1,000 mls @ 999 mls/hr 09/01/25 03:01 09/01/25 05:37 Ns IVCONT 09/01/25 04:01 Infused .Q1H1M ONE Infusion Iohexol 85 ml 09/01/25 03:47 09/01/25 03:47 Iohexol 350 Mg/Ml 100 Ml Infus..Btl IV 09/01/25 03:48 85 ml ONCE ONE Administration Ondansetron HCl 4 mg 09/01/25 03:01 09/01/25 03:21 Ondansetron Hcl 4 Mg/2 Ml Vial IVPUSH 09/01/25 03:02 4 mg ONCE ONE Administration Pantoprazole Sodium 40 mg 09/01/25 03:42 09/01/25 03:53 Pantoprazole Sodium 40 Mg/10 Ml Vial IVPUSH 09/01/25 03:43 40 mg ONCE ONE Administration Critical Care Time Critical Care Time Critical Care Time: Yes Total Critical Care Time: 35 Attestation: I have personally provided critical care time. Time includes review of lab data, radiology results, discussion with consultants, and monitoring for potential decompensation. Intervention performed as documented. Discharge Plan Discharge Clinical Impression: Abdominal pain Patient Disposition: Home, Self-Care Instructions: Abdominal Pain (ED) Additional Instructions: Please follow-up with your primary care physician tomorrow. If you have any worsening or new symptoms, please return to the emergency room or call 911 Prescriptions: New dicyclomine 20 mg tablet 20 mg PO TID PRN (Reason: abdominal pain) Qty: 14 0RF polyethylene glycol 3350 [Miralax] 17 gram/dose powder 17 g PO DAILY PRN (Reason: constipation) Qty: 119 0RF No Action sertraline 100 mg tablet 150 mg PO DAILY estradiol [Yuvafem] 10 mcg tablet 10 mcg vaginal TUTH@0900 estradiol [Estrace] 0.01 % (0.1 mg/gram) cream 1 appful vaginal DAILY Rx Instructions: for 14 days Print Language: Uz[place]
[2025-09-01 03:22] LABS: MANUAL DIFF FLAG NO
[2025-09-01 03:23] LABS: Hematocrit 36.6 % (37.0-47.0); Hemoglobin 12.3 g/dl (12.0-16.0); Imm Gran Abs Auto 0.03 X10*3/uL (0.00-0.03); Imm Gran Pct Auto 0.3 % (0.0-0.4); Lymphocytes Absolute Auto 2.4 X10*3/uL (1.2-4.9); Mean Corpuscular HGB Conc 33.6 g/dl (31.0-35.0); Mean Corpuscular Hemoglobin 30.1 pg (27.0-33.0); Mean Corpuscular Volume 89.5 fL (80.0-98.0); NRBC Abs Auto 0.000 X10*3/uL (0.0-0.012); NRBC Pct Auto 0.0 /100WBC (0.0-0.2); Platelet Count 187 X10*3/uL (160-400); Red Blood Count 4.09 X10*6/uL (4.20-5.50); White Blood Count 10.2 X10*3/uL (4.8-10.8)
[2025-09-01 03:36] LABS: Alanine Aminotransferase 15 U/L (0-31); Albumin Level 4.3 g/dL (3.5-5.0); Alkaline Phosphatase 76 U/L (39-117); Anion Gap 13 (12-20); Aspartate Amino Transferase 21 U/L (5-31); Blood Urea Nitrogen 18 mg/dL (9-16); Calcium 9.3 mg/dL (8.4-10.2); Carbon Dioxide 24 mmol/L (22-29); Chloride 108 mmol/L (96-108); Creatinine Clr Calc Pharmacy 75.8; Estimated Glomerular Filt Rate > 60; Lipase 33 U/L (8-78); Magnesium 1.7 mg/dL (1.6-2.6); Potassium 3.4 mmol/L (3.3-5.1); Sodium 142 mmol/L (135-145); Total Protein 6.6 g/dL (6.5-8.0)
[2025-09-01 03:41] LABS: Troponin-I High Sensitivity < 2.7 ng/L (<3.5-17.0)
[2025-09-01] MEDS: iohexoL 350 MG/ML 100 ML INFUS..BTL 85 ML IV (03:47)
[2025-09-01 04:44] LABS: Appearance Urine Clear; Glucose Urine UA Negative (Negative); PH 5.0 (5.0-9.0); Specific Gravity - Urine >= 1.030 (1.005-1.025); UMIC TRIGGER UACC YES
[2025-09-01 04:49] LABS: UACC Culture Trigger YES
--- OUTSIDE RECORDS SUMMARY | 2025-09-01 05:21 | XMS_ITS | Patient Health Record ---
Author Organization [facility] Address [address] [place] [address] Care Team Providers Care Groundwater Monitoring Technician Name Role Phone WILIAN BETANCOURT Primary Care Provider Zi Lehman [phone] Allergies Allergen (clinical drug ingredient) Drug/Non Drug Allergy documented on EMR Reaction Allergy Type Onset Date Status Substance with sulfonamide structure and antibacterial mechanism of action (substance) Sulfa Antibiotics severe Drug Allergy Active Penicillin Unknown Drug Allergy Active Results Component Value Reference Range Flag Notes Complete Blood Count Auto Di ff Reviewed date:04/21/2025 06:08:40 PM Interpretation: Performing Lab:[facility], [address] [place] [phone] Notes/Report: White Blood Count 4.7 4.8-10.8 X10*3/uL L Red Blood Count 4.17 4.20-5.50 X10*6/uL L Hemoglobin 12.7 12.0-16.0 g/dl N Hematocrit 38.8 37.0-47.0 % N Mean Corpuscular Volume 93.0 80.0-98.0 fL N Mean Corpuscular Hemoglobin 30.5 27.0-33.0 pg N Mean Corpuscular HGB Conc 32.7 31.0-35.0 g/dl N Red Cell Distribution Width 13.1 11.0-16.0 % N Platelet Count 218 160-400 X10*3/uL N Mean Platelet Volume 12.0 9.4-12.3 fL N Neutrophils Percent Auto 55.8 45-73 % N Imm Gran Pct Auto 0.2 0.0-0.4 % N Lymphocytes Percent Auto 33.7 20-40 % N Monocytes Percent Auto 6.4 2-11 % N Eosinophils Percent Auto 3.0 0-4 % N Basophils Percent Auto 0.9 0-2 % N NRBC Pct Auto 0.0 0.0-0.2 /100WBC N Neutrophils Absolute Auto 2.6 2.0-8.3 x10*3/uL N Imm Gran Abs Auto 0.01 0.00-0.03 X10*3/uL N Lymphocytes Absolute Auto 1.6 1.2-4.9 X10*3/uL N Monocytes Absolute Auto 0.3 0.1-1.2 X10*3/uL N Eosinophils Absolute Auto 0.1 0.0-0.4 X10*3/uL N Basophils Absolute Auto 0.0 0.0-0.2 X10*3/uL N NRBC Abs Auto 0.000 0.0-0.012 X10*3/uL N Liver Panel Reviewed date:04/21/2025 06:08:27 PM Interpretation: Performing Lab:[address] [phone] Notes/Report: Bilirubin Total 0.6 0.0-1.0 mg/dL N Bilirubin Direct 0.2 0.0-0.5 mg/dL N Aspartate Amino Transferase 23 5-31 U/L N Alanine Aminotransferase 18 0-31 U/L N Total Protein 7.0 6.5-8.0 g/dL N Albumin Level 4.5 3.5-5.0 g/dL N Alkaline Phosphatase 77 39-117 U/L N Blood Urea Nitrogen Reviewed date:04/21/2025 06:08:17 PM Interpretation: Performing Lab:[facility], [address] [place] [phone] Notes/Report: Blood Urea Nitrogen 16 9-16 mg/dL N Transglutaminase IgA Reviewed date:04/28/2025 12:16:14 AM Interpretation: Performing Lab:[address] [address] Notes/Report: Transglutaminase IgA <1.0 N Value Interpretation ----- <15.0 Antibody not detected > or = 15.0 Antibody detected THIS TEST WAS PERFORMED AT: [facility] [address] [place] [phone] KWAME SANTA MD Gliadin Ab Panel Reviewed date:04/28/2025 12:16:03 AM Interpretation: Performing Lab:[address] [address] Notes/Report: Gliadin Deamidated IgA Ab 1.1 N Value Interpretation ----- <15.0 Antibody not detected > or = 15.0 Antibody detected Gliadin Deamidated IgG Ab <1.0 N Value Interpretation ----- <15.0 Antibody not detected > or = 15.0 Antibody detected THIS TEST WAS PERFORMED AT: [facility] [address] [place] [phone] KWAME SANTA MD Endomysial IgA rflx Titer Reviewed date:04/28/2025 12:15:49 AM Interpretation: Performing Lab:[facility], [address] [place] [phone] Notes/Report: Endomysial IgA Antibody Negative Negative THIS TEST WAS PERFORMED AT: [facility]/[address] [address] MUKESH MIRAMONTES MD,PHD Endomysial Titer TNP Pathology (Not yet reviewed by provider) Interpretation: Performing Lab:[facility], [address] [place] [address] Notes/Report: CT abdomen pelvis w con Reviewed date:08/01/2025 07:22:16 PM Interpretation:Abnormal Performing Lab: Notes/Report: [address] [address] [address] Scan Report Signed Patient: Verenice Malik MR#: [id number] 2 : 1950 Acct:[id number] Age/Sex: 74 / F ADM Date: 05/26/25 Loc: HO.CT Attending Dr: Zi Lange MD Ordering Physician: Zi Lange MD Date of Service: 05/26/25 Procedure(s): CT abdomen pelvis w IV con Accession Number(s): [id number] cc: Wilian Betancourt MD; Zi Lange MD Report Number: [id number]: Total DLP = 462.00 mGy-cm Reason for [...] 05/26/25 1559 DD/ 1501 TD/TT: 05/26/25 1536 Polymer Chemist: Creatinine GFR POC Reviewed date:05/27/2025 06:50:44 PM Interpretation: Performing Lab:[facility], [address] [place] [address] Notes/Report: [id number] 0.68 >60 1509 HO.LARG Creatinine POC 0.7 0.5-1.4 mg/dL N GFR POC > 60 Chronic Kidney Disease: Estimated GFR < 60 mL/min/1.73m2 Severe Kidney Disease: Estimated GFR < 15 mL/min/1.73m2 Lipase Reviewed date:04/21/2025 06:09:25 PM Interpretation: Performing Lab:[address] [address] Notes/Report: Lipase 36 8-78 U/L N Amylase Reviewed date:04/21/2025 06:09:06 PM Interpretation: Performing Lab:[facility], [address] [place] [phone] Notes/Report: Amylase 40 28-100 U/L N Creatinine Reviewed date:04/21/2025 06:09:00 PM Interpretation: Performing Lab:[facility], [address] [place] [address] Notes/Report: Creatinine 0.65 0.5-1.4 mg/dL N Estimated Glomerular Filt Rate > 60 Chronic Kidney Disease: Estimated GFR < 60 mL/min/1.73m2 Severe Kidney Disease: Estimated GFR < 15 mL/min/1.73m2 Transglutaminase Ab IgG Reviewed date:04/28/2025 12:16:25 AM Interpretation: Performing Lab:[facility], [address] [place] [phone] Notes/Report: Transglutaminase Ab IgG <1.0 N Value Interpretation ----- <15.0 Antibody not detected > or = 15.0 Antibody detected THIS TEST WAS PERFORMED AT: [facility] [address] [place] [phone] KWAME SANTA MD Immunoglobulin A Reviewed date:04/28/2025 12:17:04 AM Interpretation: Performing Lab:[facility], [address] [place] [phone] Notes/Report: Immunoglobulin A 322 70-320 mg/dL A THIS TEST WAS PERFORMED AT: [facility] [address] [place] [phone] KWAME SANTA MD Reason For Referral No Information Medications Medication SIG (Take, Route, Frequency, Duration) Notes Start Date End Date Status Vitamin D Active Zoloft Active Estrace Active Social History Tobacco Use: Social History Observation Description Date Details (start date - stop date) Never Smoker NA - NA Social History Drug/Alcohol: Social Info Question Answer Notes AUDIT-C (Standard) Did you have a drink containing alcohol in the past year? Yes How often did you have a drink containing alcohol in the past year? Monthly or less (1 point) How many drinks did you have on a typical day when you were drinking in the past year? 1 or 2 drinks (0 point) How often did you have six or more drinks on one occasion in the past year? Never (0 point) Points 1 Interpretation Negative Tobacco Use: Social Info Question Answer Notes Tobacco Control (Standard) Tobacco use: Nonsmoker Additional Details Category Social Info Options Details Miscellaneous: Marital status: Occupation: home Problems Problem Type SNOMED Code ICD Code Onset Dates Problem Status W/U Status Risk Notes Problem Colon cancer screening (007073494) Colon cancer screening (Z12.11) Active confirmed Problem Change in bowel habit (48400454) Change in bowel habits (R19.4) Active confirmed Problem Generalized abdominal pain (248330934) Abdominal discomfort, generalized (R10.84) Active confirmed Vital Signs Blood pressure diastolic 77 mm Hg 04/20/2025 Height 63 in 04/20/2025 Blood pressure systolic 111 mm Hg 04/20/2025 Weight 175 lbs 04/20/2025 BMI 31 kg/m2 04/20/2025 Procedures Procedure Date Ordered Date Performed Result Body Sit e COLONOSCOPY 04/20/2025 N/A Encounters Encounter Location Date Provider Diagnosis [facility] [address] [place] [id number] 08/02/2025 Zi Lange [facility] [address] [place] [phone] 04/20/2025 Zi Lange Change in bowel habits R19.4 ; Colon cancer screening Z12.11 and Abdominal discomfort, generalized R10.84 [facility] [address] [place] [phone] 04/22/2025 Zi Anisa [facility] [address] [place] [phone] 07/07/2025 Zi Lange Assessments Encounter Date Diagnosis (ICD [...] CT ABD & PELVIS WITH CONTRAST 04/20/2025 Pathology 08/02/2025 Insurance Providers Payer Name Payer Address Payer Phone Subscriber Number Group Number Insured Name Patient Relationship to Insured Coverage Start Date Coverage End Date MEDICARE OF [place] [address] [place] [address] [id number] VERENICE MALIK Self - patient is the insured 8 [facility] [address] [place] [address] [phone] [id number] VERENICE MALIK Self - patient is the insured Medical (General) History Medical History History ICD Code Denies [place],DM,CVA,Lung disease,renal dise ase Depression/Anxiety IBS 3 negative colonoscopies in [place] with her most recent one in October 2016 by Surgical History Surgery Date(Month/Year) section x 6 Hernia repair x 3 CCY Appendectomy Oopherectomy bilateral
--- OUTSIDE RECORDS SUMMARY | 2025-09-01 05:21 | XMS_ITS | Patient Health Record ---
Author Organization [facility] Address [address] [facility] [address] [place] [address] Care Team Providers Care Navy Airspace Officer Name Role Phone Migration, Provider Unavailable Unavailable Reason For Referral No Information Plan Of Treatment No Information Insurance Providers Payer Name Payer Address Payer Phone Subscriber Number Group Number Insured Name Patient Relationship to Insured Coverage Start Date Coverage End Date A [employer] [address] [place] [address] [id number] VERENICE MALIK Self - patient is the insured [facility] [address] [place] [address] [id number] VERENICE MALIK Self - patient is the insured
--- OUTSIDE RECORDS SUMMARY | 2025-09-01 05:21 | XMS_ITS | Encounter Summary ---
Author Organization [facility] Address [address] [facility] [address] [place] [address] Phone Care Team Providers Care Strap Making Machine Operator Name Role Phone Jens Solano MD Primary Care Provider + Encounter Details Date Type Department Care Team (Late st Contact Info) Description 09/07/2024 Procedure Pass [facility] [address] [place] [address] Social History Tobacco Use Types Packs/Day Years [...] Info) Description 09/14/2025 10:30 AM EST Evaluation [facility] [address] [place] [address] Maxwell Harkins [address] [place] [address] [email or web address] 12/06/2025 11:00 AM EDT Evaluation [facility] [address] [place] [address] Kasi Ferraro AuD [address] [place] [address] [email or web address] Maxwell Harkins [address] [place] [address] [email or web address] documented as of this encounter Visit Diagnoses Not on filedocumented in this encounter Care Teams Strap Making Machine Operator Relationship Specialty Start Date End Date Jens Solano MD PCP - General Internal Medicine 01/07/19 documented as of this encounter Additional Source Comments The information contained in this document represents components of the legal health record. It is not the complete legal health record.[facility]
--- OUTSIDE RECORDS SUMMARY | 2025-09-01 05:21 | XMS_ITS | Encounter Summary ---
Author Organization [facility] Address [address] [facility] [address] [place] [address] Phone Care Team Providers Care Train Conductor Name Role Phone Jens Solano MD Primary Care Provider + Encounter Details Date Type Department Care Team (Latest Contact Info) Description 01/07/2019 Transcribe Orders [address] [address] Prabhakar Carney MD [facility] [address] [address] Other androgenic alopecia (Primary Dx) Social History [...] Evaluation [facility] [address] [place] [address] Maxwell Harkins [address] [place] [address] [email or web address] 12/06/2025 11:00 AM EDT [facility] [address] [place] [address] Kasi Ferraro AuD [address] [place] [address] [email or web address] [email or web address] Maxwell Carlos [address] [place] [address] [email or web address] documented as of this encounter Results * Iron (01/07/2019 12:43 PM EDT) IRON 86 30 - 160 ug/dL [facility] Blood 01/07/2019 12:4 3 PM EDT 01/07/2019 12:46 PM EDT us Prabhakar Carney MD LAB BLOOD ORDERABLES Fin al Result Performing Organization Address [facility] Co de Phone Number [address] [address] * Ferritin (01/07/2019 12:43 PM EDT) FERRITIN 146 13 - 150 ug/L [facility] Blood 01/07/2019 12:4 3 PM EDT 01/07/2019 12:46 PM EDT us Prabhakar Carney MD LAB BLOOD BKR ORDERABLES Final Result Performing Organization Address [facility] Co de Phone Number [address] [address] * CBC (01/07/2019 12:43 PM EDT) WBC 5.80 3.40 - 11.20 K/uL [facility] RBC 4.32 3.80 - 4.80 M/uL [facility] HGB 12.6 12.0 - 15.0 g/dL [facility] HCT 39.4 36.0 - 46.0 % [facility] PLT 225 130 - 400 K/uL [facility] MCV 91.2 79.0 - 98.0 fL [facility] MCH 29.2 27.0 - 34.8 pg [facility] MCHC 32.0 31.5 - 36.0 g/dL [facility] RDW 12.7 10.8 - 14.6 % [facility] MPV 10.8 9.4 - 12.4 fl [facility] NRBC 0.00 0.00 /100 WBCs [facility] ABSOLUTE NRBC 0.00 0.00 K/uL [facility] Blood 01/07/2019 12:4 3 PM EDT 01/07/2019 12:46 PM EDT us Prabhakar Carney MD LAB BLOOD BKR ORDERABLES Final Result Performing Organization Address City/State/[facility] Co de Phone Number [address] [address] documented in this encounter Visit Diagnoses Diagnosis Other androgenic alopecia- Primary documented in this encounter Care Teams Train Conductor Relationship Specialty Start Date End Date Jens Solano MD PCP - General Internal Medicine 01/07/19 documented as of this encounter Additional Source Comments The information contained in this document represents components of the legal health record. It is not the complete legal health record.[facility]
--- OUTSIDE RECORDS SUMMARY | 2025-09-01 05:22 | XMS_ITS | Clinical Summary ---
Author Organization [facility] Address [address] [employer] [facility] [address] [place] [address] Phone Care Team Providers Care Policy Writer Name Role Phone Jens Solano MD Primary [...] Encounters Date Type Department Care Team Description 06/09/2025 4:00 PM EDT Evaluation [facility] [address] [facility] [address] [place] [address] Maxwell Harkins Tinnitus of both ears (Primary Dx); Sensorineural hearing loss (SNHL) of both ears from Last 3 Months Family History Medical [...] Evaluation [facility] [address] [address] Narendra Harkinshane Carlos [address] [place] [address] [email or web address] 12/06/2025 11:00 AM EDT Evaluation [facility] [address] [address] Kasi Ferraro AuD [address] [place] [address] [email or web address] Maxwell Harkins [address] [place] [address] [email or web address] Maintenance Due Date Last Done Comments [...] INFLUENZA VACCINE (#1) 2025 07/05/2021 COVID-19 VACCINE ( season) 2025 06/13/2023, 04/29/2022, 07/05/2021, Additional [...] this topic Medical Devices Implanted Type Area Lens Shaper Grinder Device Identifier Shelf Expiration Date Model / Serial / Lot Mesh Abdomen Description:Hernia repair Insurance MEDICARE PART A & B [facility] Member Subscriber Plan / Payer (Ef fective 2000-Present) Name:Julia Malik Relation to Subscriber:Spouse Name:REBECCA MALIK Date of :1953 (Home) Address: [address] [place] [address] Payer ID:[id number] (NAIC) Group ID:[id number] Type:[facility] Address: [facility] [address] [place] [address] MEDICARE PART A & B [facility] Member Subscriber Plan / Payer ( fective 2000-Present) Name:Julia Malik Relation to Subscriber:Spouse Name:REBECCA MALIK Date of :1951 (Home) Address: [address] [place] [address] Payer ID:[id number] (NAIC) Group ID:[id number] Type:PPO Address: [address] [place] [address] [place] [address] MEDICARE PART A & B [facility] Member Subscriber Plan / Payer ( fective 2000-Present) Name:Julia Malik Relation to Subscriber:Spouse Name:REBECCA MALIK Date of :1951 (Home) Address: [address] [place] [address] [place] [address] Payer ID:[id number] (NAIC) Group ID:[id number] Type:PPO Address: [address] [place] [address] MEDICARE PART A & B [facility] Member Subscriber Plan / Payer (Ef fective 2000-Present) Name:Julia Malik Relation to Subscriber:Spouse Name:REBECCA MALIK Date of :1951 (Home) Address: [address] [place] [address] Payer ID:[id number] (NAIC) Group ID:[id number] Type:O Address: [facility] [address] [place] [address] MEDICARE PART A & B [facility] Member Subscriber Plan / Payer (Ef fective 2000-Present) Name:Julia Malik Relation to Subscriber:Spouse Name:REBECCA MALIK Date of :1951 (Home) Address: [address] [place] [address] [place] [address] Payer ID:[id number] (NAIC) Group ID:[id number] Type:PPO Address: [address] [place] [address] MEDICARE PART A & B [facility] Member Subscriber Plan / Payer (Ef fective 2000-Present) Name:Julia Malik Relation to Subscriber:Spouse Name:REBECCA MALIK Date of :1951 (Home) Address: [address] [place] [address] Payer ID:[id number] (NAIC) Group ID:[id number] Type:PPO Address: [facility] [address] [place] [address] [place] [address] MEDICARE PART A & B [facility] Member Subscriber Plan / Payer ( fective 2000-Present) Name:Julia Malik Relation to Subscriber:Spouse Name:REBECCA MALIK Date of :1951 (Home) Address: [address] [place] [address] Payer ID:[id number] (NAIC) Group ID:[id number] Type:PPO Address: [address] [place] [address] MEDICARE PART A & B [facility] Member Subscriber Plan / Payer ( fective 2000-Present) Name:Julia Malik Relation to Subscriber:Spouse Name:REBECCA MALIK Date of :1951 (Home) Address: [address] [place] [address] Payer ID:[id number] (NAIC) Group ID:[id number] Type:PPO Address: [address] [place] [address] MEDICARE PART A & B [facility] Member Subscriber Plan / Payer (Ef fective 2000-Present) Name:Julia Malik Relation to Subscriber:Spouse Name:REBECCA MALIK Date of :1951 (Home) Address: [address] [place] [address] Payer ID:[id number] (NAIC) Group ID:[id number] Type:PPO Address: [facility] [address] [place] [address] Advance Directives For more information, please contact: [phone] (9AM - 5PM [facility], Saturday-Saturday) Documents on File Type Date Recorded Patient Tool Room Lathe Operator Expl anation Healthcare Proxy 09/14/2024 3:49 PM Care Teams Policy Writer Relationship Specialty Start Date End Date Jens Solano MD PCP - General Internal Medicine 01/07/19 Additional Source Comments The information contained in this document represents components of the legal health record. It is not the complete legal health record.[facility]
--- OUTSIDE RECORDS SUMMARY | 2025-09-01 05:22 | XMS_ITS | Patient Health Record ---
Author Organization [facility] Address [address] [place] [address] Care Team Providers Care Spar Machine Operator Helper Name Role Phone TAY GODOY MD Primary Care Provider NELSON Arguello Unavailable [phone] Allergies Allergen (clinical drug ingredient) Drug/Non Drug Allergy documented on EMR Reaction Allergy Type Onset Date Status morphine Morphine itchy Drug Allergy Active Penicillin rash Drug Allergy Active Reason For Referral No Information Medications Medication SIG (Take, Route, Frequency, Duration) Notes Start Date End Date Status Estrace 0.1 MG/GM Cream as directed intravaginally 3 times a week; Duration: 30 day(s) Active Hyoscyamine Sulfate 0.125 MG SL 1-2 TABS SUBLINGUALLY 4 TIMES A DAY PRN; Duration: 30 DAYS NAME ONLY Conversion from Mult[employer] Review and pick correct strength-formula tion from [employer] options. If intended option is not shown, discontinue and re-order from Quick Search. 03/30/2019 Active Zoloft 50 MG Tablet 1 tab(s) orally once daily; Duration: 30 day(s) Not-Taking Vagifem 10 MCG Tablet 1 tab(s) intravaginally 2 times a week Active Zoloft 100 MG Tablet 1 tab(s) orally once daily Active Golytely - POWDER FOR RECONSTITUTION 240 ML ORALLY EVERY 15 MINUTES; Duration: 16 DOSE(S) NAME ONLY Conversion from Multum Review and pick correct strength-formula tion from [employer] options. If intended option is not shown, discontinue and re-order from [employer] Search. 09/27/2016 Not-Taking Social History Tobacco Use: Social History Observation Description Date Details (start date - stop date) Former Smoker NA - NA Social History Tobacco Use: Social Info Question Answer Notes Smoking Are you a: former smoker How long has it been since you last smoked? > 10 years Additional Details Category Social Info Options Details General Occupation: home alcohol use: yes occasionally drug use: no Hobbies/Exercise habits: Maria Luisa 07/2016 Coffee/Tea/Soda: yes tea 3/day Marital Status Living with smokers in household yes huband- smo kes outside Section Notes: smoked at age 21 for about a year Problems Problem Type SNOMED Code ICD Code Onset Dates Problem Status W/U Status Risk Notes Problem Irritable bowel syndrome with diarrhea (794590281) Irritable bowel syndrome with diarrhea (K58.0) Active confirmed Plan Of Treatment No Information Insurance Providers Payer Name Payer Address Payer Phone Subscriber Number Group Number Insured Name Patient Relationship to Insured Coverage Start Date Coverage End Date MEDICARE [employer] [address] [place] [address] [id number] VERENICE MALIK Self - patient is the insured [address] [employer] [address] [place] [address] [phone] [id number] REBECCA MALIK Spouse - patient is the spouse of the insured Medical (General) History Medical History History ICD Code Colonoscopy /pedi scope 03/01 Internal hemorrhoids painful v5 fent 500//COlon11/01/1619-xeadewpu-Kv to cecum Rec naxxfu0von(FamHx) family h/o colon polyps father Myrna H osp depression mult abd surgeries/adesions IBS Gallbladder disease- had cholecystectomy TTG & IgA normal 09/2016 Surgical History Surgery Date(Month/Year) strangulated hernia 2006 cholecystectomy x6 ovarian cyst x2 ---ovaries removed hernia repair x5 1 strangulated hernia appendectomy Hospitalization History Reason Date(Month/Year) as above
--- OUTSIDE RECORDS SUMMARY | 2025-09-01 05:22 | XMS_ITS | Clinical Summary ---
Author Organization [facility] Address [address] [place] [address] Care Team Providers Care Equipment Records Supervisor Name Role Phone Wilian Bergeron Primary [...] Screening 09/09/2024 Influenza Vaccine (#1) 2025 07/05/2021 COVID-19 Vaccine ( season) 2025 06/13/2023, 04/29/2022, 07/05/2021, Additional history exists RSV Vaccine (60+ years old and patients) (1 - 1-dose 75+ series) 11/19/2027 Hepatitis B Vaccines Aged Out No long er eligible based on patient's age to complete this topic Insurance [facility] [employer] Member Subscriber Plan / Payer (Ef fective 2024-Present) Name:Julia Hall Relation to Subscriber:Spouse Name:REBECCA HALL Date of :1953 (Home) Address: [address] [place] [id number] Payer ID:[id number] (NAIC) Group ID:[id number] Type:Not on file Address: [address] [place] [address] MEDICARE Care Teams Equipment Records Supervisor Relationship Specialty Start Date End Date Wilian Bergeron [address] [place], [place] [phone] PCP - General Internal Medicine 02/05/25
[2025-09-01 05:58] VITALS: BP 115/51; PULSE 78; RESP 16; TEMP 36.8; O2SAT 96
[2025-09-01 06:03] VITALS: BP 115/51; PULSE 78; RESP 16; TEMP 36.8; O2SAT 96
== END 2025-09-01 06:09 | disposition home or self-care (01) ==
PROVIDERS: Emergency Provider Emergency Medicine; PCP Internal Medicine
DX: R10.13 Epigastric pain (principal); Z90.49 Acquired absence of other specified parts of digestive tract
CPT/HCPCS: 36415; 74177; 80048; 80076; 81001; 83690; 83735; 84484; 85025; 87086; 93005; 96361; 96374; 96375; 99284; 99285; J1171; J2405; J2470; Q9967

== ENCOUNTER → 2025-09-01 03:01 | Outpatient (BNV) | payer MEDICARE, BC, SELFPAY | PROVIDERS: Emergency Provider Emergency Medicine; PCP Internal Medicine; Visit Provider Internal Medicine Cardiovascular Disease | DX: R94.31 Abnormal electrocardiogram [ECG] [EKG] (principal); R10.9 Unspecified abdominal pain | CPT/HCPCS: 93010 ==